=== PATIENT | male | born 1965 | race American Indian/Alaskan Native ===

== ENCOUNTER 2016-10-20 07:44 | Emergency (ER) | payer BC ==
[2016-10-20 07:44] VITALS: BMI 47.3
[2016-10-20 08:01] VITALS: BP 168/94; TEMP 98.4
--- NOTE | 2016-10-20 08:25 | ED PDOC ---
Arrival/HPI - General Chief Complaint: Lower Extremity Problem/Injury Time Seen by Provider: 10/20/16 08:09 Historian: Patient - History of Present Illness Narrative History of Present Illness (Text): 10/20/16 08:05 Cristo Chopra is a 51 year old male who presents to the emergency department complaining of gradually worsening right knee pain for a few days. Patient states that he has never experienced these symptoms before. 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 Patient denies any trauma, injury, numbness, weakness, or any other complaint at this time. PMD: Dr. Fowler Time/Duration: < week Symptom Onset: Gradual Symptom Course: Worsening Severity Level: Mild Activities at Onset: Light Context: Work Past Medical History - Provider Review Nursing Documentation Reviewed: Yes - Infectious Disease Hx of Infectious Diseases: None - Tetanus Immunization Tetanus Immunization: Unknown - Past Medical History Past Medical History: No Previous - Cardiac Hx Cardiac Disorders: Yes Hx Hypertension: Yes - Psychiatric Hx Depression: No Hx Emotional Abuse: No Hx Physical Abuse: No Hx Substance Use: No - Past Surgical History Past Surgical History: No Previous - Surgical History Other/Comment: Left eye - Suicidal Assessment Feels Threatened In Home Enviroment: No Family/Social History - Physician Review Nursing Documentation Reviewed: Yes Family/Social History: No Known Family HX Smoking Status: Never Smoked Hx Alcohol Use: Yes (SOCIALLY) Hx Substance Use: No Hx Substance Use Treatment: No Allergies/Home Meds Allergies/Adverse Reactions: Allergies No Known Allergies Allergy (Verified 10/20/16 08:00) Review of Systems - Physician Review All systems were reviewed & negative as marked: Yes - Review of Systems Constitutional: absent: Fevers, Night Sweats Eyes: absent: Vision Changes ENT: absent: Hearing Changes Respiratory: absent: SOB, Cough Cardiovascular: absent: Chest Pain Gastrointestinal: absent: Abdominal Pain Genitourinary Male: absent: Urinary Output Changes Musculoskeletal: Other (Right knee pain). absent: Back Pain, Neck Pain Skin: absent: Rash Neurological: absent: Headache, Dizziness Endocrine: absent: Polyuria Hemo/Lymphatic: absent: Easy Bleeding Psychiatric: absent: Depression Physical Exam - Physical Exam Narrative Physical Exam (Text): Constitutional: No acute distress. Head: Normocephalic. Atraumatic. Eyes: PERRL. ENT: Moist mucous membranes. Abdomen: Obese. Back: No CVA tenderness. Musculoskeletal: Right knee full ROM. No tenderness. No erythema. No post-knee tenderness. Sensitivity to light touch intact. Motor 5/5 Skin: No rash. Neurologic: Alert, no focal deficit. Vital Signs Reviewed: Yes Vital Signs Temp Pulse Resp BP Pulse Ox 10/20/16 08:00 98.4 F 79 18 168/94 H 100 Temperature: Afebrile Blood Pressure: Hypertensive Pulse: Regular Respiratory Rate: Normal Appearance: Positive for: Well-Appearing, Non-Toxic, Comfortable Pain Distress: None Mental Status: Positive for: Alert and Oriented X 3 Medical Decision Making ED Course and Treatment: 10/20/16 08:05 Impression: 51 year old male complaining of gradually worsening right knee pain for a few days. Plan: -- Right knee x-ray -- Toradol -- Reassess and disposition Prior Visits: Notes and results from previous visits were reviewed. Patient last seen in ED on 11/05/12 for abdominal pain. Patient was discharged home. Progress Notes: XR shows no fracture or dislocation as read by me. SUNSHINE wrap applied. Discharged home, f/u Ortho, return to ER for worsening pain, fever, inability to range, rash, or any other problem. Counseled on HTN management and primary care. - RAD Interpretation Radiology Orders: 10/20/16 08:09 KNEE RIGHT 2 VIEWS (AP & LAT) [RAD] Stat - Medication Orders Current Medication Orders: Discontinued Medications Ketorolac Tromethamine (Toradol) 60 mg IM STAT STA Stop: 10/20/16 08:10 Last Admin: 10/20/16 08:39 Dose: 60 mg Ketorolac Tromethamine (Toradol) Confirm Administered Dose 60 mg .ROUTE .STK- MED ONE Stop: 10/20/16 08:34 Last Admin: 10/20/16 08:39 Dose: 60 mg Comments: duplicate - Scribe Statement The provider has reviewed the documentation as recorded by the Alix Medina Provider Scribe Attestation: All medical record entries made by the Scribe were at my direction and personally dictated by me. I have reviewed the chart and agree that the record accurately reflects my personal performance of the history, physical exam, medical decision making, and the department course for this patient. I have also personally directed, reviewed, and agree with the discharge instructions and disposition. Disposition/Present on Arrival - Present on Arrival Any Indicators Present on Arrival: No History of DVT/PE: No History of Uncontrolled Diabetes: No Urinary Catheter: No History of Decub. Ulcer: No History Surgical Site Infection Following: None - Disposition Have Diagnosis and Disposition been Completed?: Yes Diagnosis: Knee pain Disposition: HOME/ ROUTINE Disposition Time: 09:28 Patient Plan: Discharge Condition: STABLE Discharge Instructions (ExitCare): Knee Pain (ED) Prescriptions: Famotidine [Pepcid] 1 tab PO BID #14 tab Ibuprofen [Motrin] 600 mg PO Q6 #25 tab Referrals: Justina Jarrett MD [Staff Provider] - Follow up with primary
--- NOTE | 2016-10-20 09:52 | RAD ---
PROCEDURE: Right Knee Radiographs. HISTORY: knee pain COMPARISON: None. FINDINGS: BONES: Normal. No fracture. JOINTS: Normal. No osteoarthritis. JOINT EFFUSION: None. OTHER FINDINGS: None. IMPRESSION: Normal radiographs of the right knee.
[2016-10-20 10:43] VITALS: PULSE 65; RESP 16; O2SAT 97
== END 2016-10-20 09:30 | disposition home or self-care (01) ==
LOC: ED 07:44
DX: M25.561 Pain in right knee (principal)
CPT/HCPCS: 73560; 96372; 99283; J1885

== ENCOUNTER 2017-02-23 09:31 | Emergency (ER) | payer BC ==
[2017-02-23 09:32] VITALS: BMI 47.3
--- NOTE | 2017-02-23 10:04 | ED PDOC ---
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 He did not hear a pop or felt any pain at time of activity. The pain is aching in nature and radiates to his LLQ. He tried Tylenol without any relief. He denies numbness/tingling, bowel or bladder retention/incontinence, CP, SOB, weakness or problems with ambulation. ( Saundra Garvey) Past Medical History - Provider Review Nursing Documentation Reviewed: Yes - Travel History Have you recently traveled outside [place] w/in the past 3 mons?: No - Infectious Disease Hx of Infectious Diseases: None - Tetanus Immunization Tetanus Immunization: Unknown - Past Medical History Past Medical History: No Previous - Cardiac Hx Cardiac Disorders: Yes Hx Hypertension: Yes - Psychiatric Hx Depression: No Hx Emotional Abuse: No Hx Physical Abuse: No Hx Substance Use: No - Past Surgical History Past Surgical History: No Previous - Surgical History Other/Comment: Left eye - Suicidal Assessment Feels Threatened In Home Enviroment: No Family/Social History - Physician Review Nursing Documentation Reviewed: Yes Family/Social History: Hypertension Smoking Status: Never Smoked Hx Alcohol Use: Yes (SOCIALLY) Hx Substance Use: No Hx Substance Use Treatment: No Allergies/Home Meds Allergies/Adverse Reactions: Allergies No Known Allergies Allergy (Verified 02/23/17 10:05) Review of Systems - Physician Review All systems were reviewed & negative as marked: Yes - Review of Systems Constitutional: Normal. absent: Fatigue Respiratory: Normal. absent: SOB Cardiovascular: Normal. absent: Chest Pain Gastrointestinal: Normal. absent: Abdominal Pain, Diarrhea, Nausea, Vomiting Genitourinary Male: Normal. absent: Dysuria, Frequency, Hematuria Musculoskeletal: Back Pain. absent: Neck Pain, Joint Swelling Skin: Normal. absent: Rash, Skin Lesions Neurological: Normal. absent: Headache, Dizziness Physical Exam Vital Signs Reviewed: Yes Temperature: Afebrile Blood Pressure: Hypertensive Pulse: Regular Respiratory Rate: Normal Appearance: Positive for: Well-Appearing, Non-Toxic, Comfortable Pain Distress: None Mental Status: Positive for: Alert and Oriented X 3 - Systems Exam Head: Present: Atraumatic, Normocephalic Mouth: Present: Moist Mucous Membranes Neck: Present: Normal Range of Motion Respiratory/Chest: Present: Clear to Auscultation, Good Air Exchange. No: Respiratory Distress, Accessory Muscle Use Cardiovascular: Present: Regular Rate and Rhythm, Normal S1, S2. No: Murmurs Abdomen: Present: Normal Bowel Sounds. No: Tenderness, Distention, Peritoneal Signs Back: Present: Paraspinal Tenderness (on L L4-S1), Pain with Leg Raise (on L ). No: CVA Tenderness, Midline Tenderness Upper Extremity: Present: Normal Inspection. No: Cyanosis, Edema Lower Extremity: Present: Normal Inspection. No: Edema Neurological: Present: GCS=15, CN II-XII Intact, Speech Normal Skin: Present: Warm, Dry, Normal Color. No: Rashes Psychiatric: Present: Alert, Oriented x 3, Normal Insight, Normal Concentration Vital Signs Temp Pulse Resp BP Pulse Ox 02/23/17 11:42 98.2 F 58 L 18 158/79 H 99 02/23/17 11:38 58 L 18 158/79 H 99 02/23/17 10:46 56 L 16 164/86 H 99 02/23/17 10:06 98.3 F 70 16 154/90 H 99 Medical Decision Making ED Course and Treatment: 02/23/17 10:19 Impression: This is a 51Y M with PMH HTN here for back pain x 1 day secondary to heavy lifting. Differential Diagnosis included but are not limited to: muscle strain v. fracture Plan: -- Hip XR, LS spine XR -- Toradol -- Reassess and disposition Progress Notes: 02/23/17 11:29 Xrays show no evidence of fracture. On reevaluation the patient feels better and is in no acute distress. I have discussed the results and plan with the patient, who expresses understanding. Patient given the opportunity to ask question, all questions were answered and there is agreement with the plan to discharge the patient home with prescription for Mortin. Patient is stable for discharge. Patient was instructed to follow up with physician/clinic in 1-2 days or return if symptoms persist/worsen or new concerning symptoms arise., ( Saundra Garvey) 02/23/17 14:48 51 yr old male with back pain. I agree with resident history and physical, assessment and plan. (Hamlet Vázquez) - RAD Interpretation Radiology Orders: 02/23/17 10:17 HIP MIN 2V W/ PELVIS LT [RAD] Stat 02/23/17 11:13 LS SPINE AP/LAT [RAD] Stat - Medication Orders Current Medication Orders: Discontinued Medications Ketorolac Tromethamine (Toradol) 60 mg IM STAT STA Stop: 02/23/17 10:18 Last Admin: 02/23/17 10:36 Dose: 60 mg MAR Pain Assessment Document 02/23/17 10:36 IT (Rec: 02/23/17 10:39 IT [id number]) Pain Reassessment Is this a pain reassessment? No Sleep Is patient sleeping during reassessment? No Presence of Pain Presence of Pain Yes Pain Scale Used Pain Scale Used Numeric Location Left, Right or Bilateral Left Upper or Lower Upper Pain Location Body Site Abdomen Description Description Radiating Intensity of Pain at present 5 IM Administration Charges Document 02/23/17 10:36 IT (Rec: 02/23/17 10:39 IT [id number]) Injection Site MAR Injection Site Left Deltoid Charges for Administration # of IM Administrations 1 Disposition/Present on Arrival - Present on Arrival Any Indicators Present on Arrival: No History of DVT/PE: No History of Uncontrolled Diabetes: No Urinary Catheter: No History Surgical Site Infection Following: None - Disposition Have Diagnosis and Disposition been Completed?: Yes Disposition Time: 11:30 Patient Plan: Discharge - Disposition Diagnosis: Back pain Disposition: HOME/ ROUTINE Condition: FAIR Discharge Instructions (ExitCare): Back Pain (ED) Print Language: CITIZEN OF [place] Additional Instructions: Mr. ZavalaChopra, thank you for letting us take care of you today. Your provider was Dr. Garvey. You were treated for back pain. The emergency medical care you received today was directed at your acute symptoms. If you were prescribed any medication, please fill it and take as directed. It may take several days for your symptoms to resolve. Return to the Emergency Department if your symptoms worsen, do not improve, or if you have any other problems. Please contact your doctor or call one of the physicians/clinics you have been referred to that are listed on the Patient Visit Information form that is included in your discharge packet. Bring any paperwork you were given at discharge with you along with any medications you are taking to your follow up visit. Our treatment cannot replace ongoing medical care by a primary care provider (PCP) outside of the emergency department. Thank you for allowing the [facility] team to be part of your care today. If you had an X-Ray: A Radiologist will review the ED reading if any change in treatment is needed we will contact you. Prescriptions: Ibuprofen [Motrin] 600 mg PO Q6H PRN #20 tab PRN Reason: Pain, Moderate (4-7) Forms: [employer] (Serbian)
[2017-02-23 10:09] VITALS: O2SAT 99
[2017-02-23 11:38] VITALS: BP 158/79; PULSE 58; RESP 18
[2017-02-23 11:44] VITALS: TEMP 98.2
--- NOTE | 2017-02-23 12:45 | RAD ---
PROCEDURE: Left Hip X-ray Radiographs. HISTORY: Back pain COMPARISON: None. FINDINGS: BONES: The pelvic ring is intact. There is no acute fracture or bone destruction. Bone alignment and mineralization are normal. JOINTS: Normal. SOFT TISSUES: Normal. OTHER FINDINGS: None. IMPRESSION: No acute fracture or dislocation.
--- NOTE | 2017-02-23 12:49 | RAD ---
PROCEDURE: Radiographs of the Lumbar Spine. HISTORY: Back pain COMPARISON: No prior. FINDINGS: BONES: There is normal alignment of the lumbar vertebral bodies. Lumbar lordosis is maintained. Vertebral bodies are normal in height. Bone mineralization is normal. There is no acute fracture, spondylolysis or spondylolisthesis. DISC SPACES: There is mild degenerative disc disease at L5-S1. The remaining disc heights are maintained. OTHER FINDINGS: There are no pathologic soft tissue calcifications. Both sacroiliac joints are normal. IMPRESSION: No acute fracture, spondylolysis or spondylolisthesis. Mild degenerative disc disease at L5-S1.
== END 2017-02-23 11:43 | disposition home or self-care (01) ==
LOC: ED 09:31
DX: M54.9 Dorsalgia, unspecified (principal); I10 Essential (primary) hypertension
CPT/HCPCS: 72100; 73502; 96372; 99283; J1885

== ENCOUNTER 2017-04-23 07:20 | Inpatient (IN) | payer BC ==
[2017-04-23 07:27] VITALS: BMI 43.4
--- NOTE | 2017-04-23 07:55 | ED PDOC ---
Arrival/HPI - General Time Seen by Provider: 04/23/17 07:38 Historian: Patient - History of Present Illness Narrative History of Present Illness (Text): 04/23/17 07:40 Cristo Chopra is a 51 year old male, whose past medical history includes hypertension and renal stones, who presents to the emergency department complaining of left sided chest pain since one day ago. Patient reports the chest tightness began yesterday afternoon after lunch and has been intermittent. He also states being more diaphoretic. Patient denies shortness of breath, headache, vision changes, nausea, vomiting, diarrhea, neck pain, or other complaints. Compressor Battery Pellets: Dr. Mcintosh Musician Instrumental: Dr. Armando Time/Duration: 24 hours Symptom Onset: Sudden Symptom Course: Intermittent Quality: Tightness Past Medical History - Provider Review Nursing Documentation Reviewed: Yes - Infectious Disease Hx of Infectious Diseases: None - Tetanus Immunization Tetanus Immunization: Unknown - Past Medical History Past Medical History: No Previous - Cardiac Hx Cardiac Disorders: Yes Hx Hypertension: Yes - Pulmonary Hx Respiratory Disorders: No - Neurological Hx Neurological Disorder: No - HEENT Hx HEENT Disorder: No - Renal Hx Kidney Stones: Yes - Endocrine/Metabolic Hx Endocrine Disorders: No - Hematological/Oncological Hx Blood Disorders: No - Integumentary Hx Dermatological Disorder: No - Musculoskeletal/Rheumatological Hx Musculoskeletal Disorders: No - Gastrointestinal Hx Gastrointestinal Disorders: No - Genitourinary/Gynecological Hx Genitourinary Disorders: No - Psychiatric Hx Psychophysiologic Disorder: No Hx Substance Use: No - Past Surgical History Past Surgical History: No Previous - Surgical History Other/Comment: Left eye - Suicidal Assessment Feels Threatened In Home Enviroment: No Family/Social History - Physician Review Nursing Documentation Reviewed: Yes Family/Social History: Unknown Family HX Smoking Status: Never Smoked Hx Alcohol Use: Yes (SOCIALLY) Hx Substance Use: No Hx Substance Use Treatment: No Allergies/Home Meds Allergies/Adverse Reactions: Allergies No Known Allergies Allergy (Verified 02/23/17 10:05) Home Medications: Home Meds Medication Instructions Recorded Confirmed No Known Home Med 04/23/17 04/23/17 Review of Systems - Review of Systems Constitutional: absent: Fevers Eyes: absent: Vision Changes Respiratory: absent: SOB, Cough Cardiovascular: Chest Pain (tightness) Gastrointestinal: absent: Abdominal Pain, Diarrhea, Nausea, Vomiting Genitourinary Male: absent: Dysuria Musculoskeletal: absent: Back Pain Neurological: absent: Headache, Dizziness, Focal Weakness Endocrine: Diaphoresis Physical Exam - Physical Exam Narrative Physical Exam (Text): 04/23/17 Constitutional: No acute distress. Obese. Head: Normocephalic. Atraumatic. Eyes: PERRL. ENT: Moist mucous membranes. Neck: Supple. Cardiovascular: Borderline bradycardic. Chest: No tenderness. Respiratory: Clear to auscultation bilaterally. GI: Soft. Nontender. Nondistended. Back: No CVA tenderness. Musculoskeletal: (+) pitting edema bilaterally Skin: No rash. Neurologic: Alert, no focal deficit. Vital Signs Reviewed: Yes Vital Signs Temp Pulse Resp BP Pulse Ox 04/23/17 09:42 58 L 15 179/92 H 100 04/23/17 08:59 55 L 19 199/121 H 99 04/23/17 07:55 98 F 04/23/17 07:26 98 F 69 19 208/125 H Temperature: Afebrile Blood Pressure: Hypertensive Pulse: Regular Respiratory Rate: Normal Appearance: Positive for: Well-Appearing, Non-Toxic, Comfortable Pain Distress: None Mental Status: Positive for: Alert and Oriented X 3 Medical Decision Making ED Course and Treatment: 04/23/17 Impression: 51 year old obese male with pitting edema bilaterally and borderline bradycardic. Differential Diagnosis included but are not limited to: Plan: -- EKG -- Chest X-ray -- Labs -- Aspirin -- Reassess and disposition Progress Notes: EKG: Ordered, reviewed, and independently interpreted the EKG. Rate : 50 BPM Rhythm : braycardic Interpretation : No ST-segment elevations. ST depression/T wave inversion laterally. 04/23/17 08:50 Chest X-ray: Creator : Lenny Toth MD FINDINGS: LUNGS: No active pulmonary disease. PLEURA: No significant pleural effusion identified, no pneumothorax apparent. CARDIOVASCULAR: Normal. OSSEOUS STRUCTURES: No significant abnormalities. VISUALIZED UPPER ABDOMEN: Normal. OTHER FINDINGS: None. IMPRESSION: No acute cardiopulmonary disease appreciated. Dr Jordan accepts patient to medical service. Dr. Armando will consult, will attempt to cath patient. - Lab Interpretations Lab Results: 04/23/17 07:30 04/23/17 08:40 Lab Results 04/23/17 08:40: PT 11.9, INR 1.08, APTT 35.3 04/23/17 08:40: Sodium 143, Potassium 4.4, Chloride 108 H, Carbon Dioxide 26, Anion Gap 12, BUN 19, Creatinine 2.2 H, Est GFR ( Amer) 38, Est GFR (Non- Af Amer) 31, Random Glucose 100, Calcium 9.1, Total Bilirubin 0.7, AST 21, ALT 31, Alkaline Phosphatase 66, Total Creatine Kinase 77, Troponin I 0.07, Total Protein 8.1, Albumin 3.9, Globulin 4.1, Albumin/Globulin Ratio 1.0 L 04/23/17 07:30: WBC 6.8, RBC 4.37, Hgb 12.8 L, Hct 39.2 L, MCV 89.7, MCH 29.3, MCHC 32.7, RDW 13.1, Plt Count 210, MPV 10.0, Gran % 58.5, Lymph % (Auto) 29.4, [place] % (Auto) 8.6 H, Eos % (Auto) 3.4, Baso % (Auto) 0.1, Gran # 3.96, Lymph # 2.0, [place] # 0.6, Eos # 0.2, Baso # 0.01 I have reviewed the lab results: Yes - RAD Interpretation Radiology Orders: 04/23/17 07:38 CHEST PORTABLE [RAD] Stat Pickling Grader: Radiologist - EKG Interpretation Interpreted by ED Physician: Yes Type: 12 lead EKG - Medication Orders Current Medication Orders: Discontinued Medications Aspirin (Aspirin) 325 mg PO STAT STA Stop: 04/23/17 07:39 Last Admin: 04/23/17 07:46 Dose: 325 mg Nitroglycerin (Nitro-Bid 2% Oint) 1 ea TOP STAT STA Stop: 04/23/17 08:17 Last Admin: 04/23/17 08:33 Dose: 1 ea - Scribe Statement The provider has reviewed the documentation as recorded by the Alix Ferris Provider Scribe Attestation: All medical record entries made by the Scribe were at my direction and personally dictated by me. I have reviewed the chart and agree that the record accurately reflects my personal performance of the history, physical exam, medical decision making, and the department course for this patient. I have also personally directed, reviewed, and agree with the discharge instructions and disposition. Disposition/Present on Arrival - Present on Arrival Any Indicators Present on Arrival: No History of DVT/PE: No History of Uncontrolled Diabetes: No Urinary Catheter: No History Surgical Site Infection Following: None - Disposition Have Diagnosis and Disposition been Completed?: Yes Diagnosis: Chest pain, Abnormal EKG Disposition: HOSPITALIZED Disposition Time: 10:00 Patient Plan: Admission, Telemetry Condition: GUARDED Discharge Instructions (ExitCare): Chest Pain (ED)
[2017-04-23 08:10] LABS: BASO # 0.01 K/mm3 (0.0-2.0); BASO % 0.1 % (0.0-3.0); EOS # 0.2 (0.0-0.7); EOS % 3.4 % (1.5-5.0); GRAN # 3.96 (1.4-6.5); GRAN % 58.5 % (50.0-68.0); HEMATOCRIT 39.2 % (42.0-52.0); LYMPH % 29.4 % (22.0-35.0); MEAN CELL VOLUME 89.7 fl (80.0-105.0); MEAN CORPUSCULAR HEMOGLOBIN 29.3 pg (25.0-35.0); MEAN CORPUSCULAR HGB CONC 32.7 g/dl (31.0-37.0); MONO # 0.6 (0.1-0.6); MONO % 8.6 % (1.0-6.0); RED CELL DISTRIBUTION WIDTH 13.1 % (11.5-14.5); WHITE BLOOD COUNT 6.8 10^3/ul (4.5-11.0)
[2017-04-23] MEDS ORDERED: Nitroglycerin 2% Ointment Foilpak UD TOP STA (08:16)
--- NOTE | 2017-04-23 08:48 | RAD ---
HISTORY: cp COMPARISON: No prior. FINDINGS: LUNGS: No active pulmonary disease. PLEURA: No significant pleural effusion identified, no pneumothorax apparent. CARDIOVASCULAR: Normal. OSSEOUS STRUCTURES: No significant abnormalities. VISUALIZED UPPER ABDOMEN: Normal. OTHER FINDINGS: None. IMPRESSION: No acute cardiopulmonary disease appreciated.
[2017-04-23 09:07] LABS: BILIRUBIN,TOTAL 0.7 mg/dL (0.2-1.3); CALCIUM 9.1 mg/dL (8.4-10.5); POTASSIUM 4.4 mmol/L (3.6-5.0); TOTAL PROTEIN 8.1 g/dL (5.8-8.3)
[2017-04-23 09:11] LABS: INR 1.08 (0.93-1.08); PARTIAL THROMBOPLASTIN TIME 35.3 Seconds (25.1-36.5)
[2017-04-23 09:19] LABS: TROPONIN I 0.07 ng/mL
[2017-04-23] MEDS ORDERED: Influenza Vaccine 60 mcg/0.5 mL SYR (4YR UP) IM ONE (15:24)
[2017-04-23] MEDS ORDERED: Pneumococcal 23-Valent Vaccine IM ONE (15:24)
[2017-04-23 15:54] LABS: TROPONIN I 0.07 ng/mL
[2017-04-23 20:47] LABS: IRON 36 ug/dL (45-180)
[2017-04-23 20:50] LABS: TROPONIN I 0.07 ng/mL
[2017-04-24 06:38] LABS: HEMATOCRIT 40.9 % (42.0-52.0); MEAN CELL VOLUME 91.1 fl (80.0-105.0); MEAN CORPUSCULAR HEMOGLOBIN 29.8 pg (25.0-35.0); MEAN CORPUSCULAR HGB CONC 32.8 g/dl (31.0-37.0); MEAN PLATELET VOLUME 9.8 fl (7.0-11.0); RED CELL DISTRIBUTION WIDTH 13.1 % (11.5-14.5)
[2017-04-24 07:46] LABS: CALCIUM 9.5 mg/dL (8.4-10.5); POTASSIUM 4.3 mmol/L (3.6-5.0)
[2017-04-24 07:58] LABS: TROPONIN I 0.07 ng/mL
--- NOTE | 2017-04-24 08:50 | HP ---
CHIEF COMPLAINT: Chest pain. HISTORY OF PRESENT ILLNESS: Mr. Cristo Chopra is a 51-year-old male with past medical history of hypertension, renal stones, taken care by Dr. Mcintosh, came to the Emergency Room Department complaining of left-sided chest pain since one day. The patient reports the chest tightness began yesterday afternoon after lunch and has been intermittent. He also states that being more diaphoretic. The patient denies nausea, vomiting, diarrhea, headache or neck pain. According to patient, he saw Dr. Armando as outpatient and did stress test. Stress test was abnormal and patient disposed to go for catheterization, but started chest pain before that, so came in [facility]. PAST MEDICAL HISTORY: History of kidney stones, hypertension and abnormal stress test. ALLERGIES: THE PATIENT IS NOT ALLERGIC WITH ANY MEDICATIONS. HOME MEDICATIONS: The patient does not remember. FAMILY HISTORY: Father and mother, noncontributory. HABITS: Never smoke, alcohol socially. Substance abuse no. REVIEW OF SYSTEMS: The patient was seen and examined on the bedside in the ER. was sitting on the bedside also. No fever. No vision changes. No coughing and shortness of breath, only having chest tightness and pain. No abdominal pain, diarrhea, nausea, vomiting. No dysuria. No back pain. No headache. No dizziness, focal weakness, diaphoresis or fever. PHYSICAL EXAMINATION VITAL SIGNS: Temperature 98, pulse 69, respiratory 19, blood pressure on admission was 208/125, repeat was 179/92 and Pulseoximetry 100%. HEENT: Head: Normocephalic and atraumatic. Eyes: PERRLA. Extraocular muscles are intact. Conjunctivae are clear. Nose is patent. Mucous membranes are moist. NECK: Supple. No carotid bruits. No JVD or thyromegaly. CHEST: Bilaterally symmetrical. HEART: S1 and S2 positive. LUNGS: Clear to auscultation. ABDOMEN: Soft. Bowel sounds are present. No organomegaly. EXTREMITIES: No edema. No cyanosis. NEUROLOGIC: The patient is awake and alert. Moving all 4 extremities. No focal deficit. LABORATORY DATA: White blood cells is 6.8, hemoglobin 12.8, hematocrit 39.2, platelets 210. Sodium 143, potassium 4.4, BUN 19, creatinine 2.2, glucose 100. ASSESSMENT AND PLAN: Mr. Cristo Chopra is a 51-year-old male with anemia, renal insufficiency, hyperchloremia, history of nephrolithiasis, came with chest pain, abnormal EKG, history of abnormal stress test as per patient and Dr. Armando's office, did chest x-ray, accelerated hypertension with bradycardia. Chest x-ray showed no acute cardiopulmonary disease appreciated. Readmitted the patient. We would consult with Dr. Armando, awaiting for his input, started aspirin 81 mg, Pepcid, 20 mg for gastrointestinal prophylaxis, Zestril 20 mg given for blood pressure, heart healthy diet given. Cardiac enzymes orders x3. Two sets are 0.07, waiting for results of 3rd set . Repeat labs. We will follow up. Sofi Jordan MD Job # [id number] MTDChristina
--- NOTE | 2017-04-24 09:42 | CARD ---
APPROVED REPORT EKG Measurement Heart [id number] <Conclusion> Marked sinus bradycardia Anteroseptal infarct, age undetermined ST & T wave abnormality, consider lateral ischemia No change except the ratet is slower
[2017-04-24] MEDS ORDERED: Enoxaparin 40 mg Syringe SC SCH (10:00)
[2017-04-24 17:09] LABS: FOLATE 6.1 ng/mL
--- NOTE | 2017-04-24 18:07 | CON ---
DATE: 04/24/2017 HISTORY OF PRESENT ILLNESS: This is a 51-year-old obese hypertensive male admitted with chest pain. He has a staghorn calculus, he underwent urologic evaluation, lithotripsy was planned, preoperatively an EKG was abnormal and he was sent for cardiac evaluation. Nuclear stress test was abnormal. He also has a creatinine in the 2 to 2.5 range. Renal evaluation was being planned prior to proposed cardiac catheterization to define is coronary anatomy. He has not had chest pain, but yesterday developed a left-sided chest discomfort, which lasted about 30 minutes. He came to the emergency room and was admitted to telemetry. There was no shortness of breath,orthopnea, PMD, syncope, presyncope, lightheadedness, dizziness, vertigo, palpitations, edema, and claudication. PAST MEDICAL HISTORY: Notable for hypertension, obesity, renal stone, but no rheumatic fever, myocardial infarction, congestive heart failure, arrhythmia, diabetes, stroke, TIA, and gout. MEDICATIONS: At the time of admission included lisinopril. ALLERGIES: THERE ARE NO MEDICATION ALLERGIES. SOCIAL HISTORY: He is a nonsmoker. He does not drink alcohol significantly. He is ambulatory. 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 He is fairly active in his work. FAMILY HISTORY: Noncontributory. REVIEW OF SYSTEMS: A 10-point review of systems otherwise unremarkable except as noted above. PHYSICAL EXAMINATION GENERAL: He is a well-developed obese male in no acute distress, lying in bed on telemetry. VITAL SIGNS: He is in sinus rhythm at 66 beats per minute. He is afebrile, blood pressure 134/70, respirations 14, O2 saturation 95%. HEENT: Reveals no neck pain, distention, thyromegaly or carotid bruits. Mucous membrane is moist. Conjunctiva pink. NECK: Supple. LUNG: Lung medeiros clear throughout. HEART: Examination of the hear revealed normal first and second heart sound. No murmur, gallop, rub, or click. ABDOMEN: Obese and soft. Bowel sounds present. No mass, organomegaly, tenderness, rebound, or guarding. No CVA tenderness. No palpable, abdominal aortic aneurysm. EXTREMITIES: Revealed no cyanosis, clubbing or edema. NEUROLOGIC: He was awake, alert, and oriented. SKIN: Warm and dry. No rash or cellulitis. PSYCHIATRIC: Normal to mood and affect. LABORATORY AND IMAGING: A portable chest x-ray revealed no acute cardiopulmonary disease. EKG demonstrate sinus bradycardia 49 beats per minute. He has poor R-wave progression possible anterior septal myocardial infarction no change with ST-T wave changes consistent with ischemia. White count normal. Platelet count normal. Hemoglobin 13.4, hematocrit 40.9. PT, INR, and PTT unremarkable. Electrolytes notable for chloride of 108, repeat 109, BUN normal, creatinine 2.2, repeat 2.3. Blood sugar 100/96. LFT is unremarkable. Four troponin are negative. Three CK are negative. BNP 1090. Total cholesterol is 237, LDL 138, triglycerides 202, HDL 32, and TSH is normal. ASSESSMENT: Cristo Chopra is a 51-year-old obese, hypertensive male, with an abnormal nuclear stress test, abnormal EKG, chronic kidney disease and renal stones with creatinine of 2.2 range, admitted with chest pain, but no evidence of myocardial infarction. PLAN: At this time, we are planning cardiac catheterization. He is at increased renal risk. I have discussed this with the patient and with his while they were in the office. We will get a renal evaluation. We are tentatively planning cardiac catheterization for tomorrow. He will get IV fluids and Mucomyst precatheterization and post catheterization. Every effort will be made to minimize dye exposure so as to minimize the risk of worsening his renal function. He has a known staghorn calculus with an elective lithotripsy planned in the future. He is getting lisinopril. I have added Norvasc. He is on aspirin. He will get a low dose of Lovenox today as DVT prophylaxis. He is getting Pepcid. He can be out of bed. We will monitor input and output, daily labs, and post catheterization. We will make additional recommendations based on the cath results. I will start him on Lipitor 20 mg daily as well. Wenceslao Armando MD MTDChristina
--- NOTE | 2017-04-24 18:42 | US ---
PROCEDURE: Ultrasound of the Kidneys HISTORY: CKD, Neprolithiasis, R/O hydro, Check kidney size COMPARISON: None available. TECHNIQUE: Sonogram of the kidneys. FINDINGS: RIGHT KIDNEY: Measures: 10.1 x 4.3 x 5.5 cm. There is [id number]-[id number] diffuse increased echogenicity of the right kidney. No evidence of hydronephrosis No stone, solid mass lesion or hydronephrosis visualized. LEFT KIDNEY: Measures: 11.4 x 5.4 x 5.2 cm. The left kidney is also mildly to moderately echogenic. There is no evidence of hydronephrosis. This suspicious for nonobstructing stone at the lower pole of the left kidney measures 1.1 centimeter. Other Findings None. IMPRESSION: Echogenic kidneys suggestive of medical renal disease. No evidence of hydronephrosis. Suspicious for nonobstructing stone at the lower pole of the left kidney.
[2017-04-24] MEDS ORDERED: Acetylcysteine 20% Inhal Soln (4ml) PO ONE (19:00)
[2017-04-24 20:10] LABS: URINE BILIRUBIN NEGATIVE (NEGATIVE); URINE BLOOD LARGE (NEGATIVE); URINE GLUCOSE (UA) NEGATIVE (NEGATIVE); URINE KETONE NEGATIVE (NEGATIVE); URINE LEUKOCYTE ESTERASE NEGATIVE Leu/uL (NEGATIVE); URINE PROTEIN 100 mg/dL (<30 mg/dL); URINE UROBILINOGEN 0.2 E.U./dL (<1 E.U./dL)
[2017-04-24 20:13] LABS: URINE APPEARANCE SL CLOUDY (CLEAR); URINE COLOR YELLOW (YELLOW)
[2017-04-24 20:19] LABS: URINE EPITHELIAL CELLS 0 - 2 /hpf (0-5); URINE RBC 25 - 30 /hpf (0-2); URINE WBC 0 - 2 /hpf (0-6)
--- NOTE | 2017-04-25 00:55 | CP.PCM.PN ---
<Arlene Burk - Last Filed: 04/25/17 00:52> Subjective - Date & Time of Evaluation Date of Evaluation: 04/24/17 Time of Evaluation: 10:00 - Subjective Subjective: 51 yr male w/ history of obesity, HTN, and staghorm calculus with planned lithotripsy but ECG abnormal & abn stress test. He developed chest pain, left sided and was admitted to [facility] [place] [facility]. He is seated comfortably at bedside. He denies any fever, chest pain, SOB, headache, constipation, diarrhea, urinary changes or distress. Objective - Vital Signs/Intake and Output Vital Signs (last 24 hours): Temp Pulse Resp BP Pulse Ox 98.2 F 67 20 164/86 H 96 04/25/17 00:01 04/25/17 00:01 04/25/17 00:01 04/25/17 00:01 04/25/17 00:01 - Medications Medications: Current Medications Acetylcysteine (Acetylcysteine 20%) 3 ml PO ONCE ONE Stop: 04/25/17 06:01 Amlodipine Besylate (Norvasc) 5 mg PO DAILY [facility] Last Admin: 04/24/17 10:40 Dose: 5 mg Aspirin (Ecotrin) 81 mg PO DAILY [facility] Last Admin: 04/24/17 10:05 Dose: 81 mg Atorvastatin Calcium (Lipitor) 20 mg PO DIN [facility] Last Admin: 04/24/17 16:27 Dose: 20 mg Enoxaparin Sodium (Lovenox) 40 mg SC DAILY [facility] PRN Reason: Protocol Last Admin: 04/24/17 10:01 Dose: 40 mg Famotidine (Pepcid) 20 mg PO DAILY [facility] Last Admin: 04/24/17 10:01 Dose: 20 mg Sodium Chloride (Sodium Chloride 0.9%) 1,000 mls @ 60 mls/hr IV .[id number] [facility] Lisinopril (Zestril) 20 mg PO DAILY [facility] Last Admin: 04/24/17 10:01 Dose: 20 mg - Labs Labs: 04/24/17 05:45 04/24/17 05:45 PT 11.9 SECONDS (9.4-12.5) 04/23/17 08:40 INR 1.08 (0.93-1.08) 04/23/17 08:40 APTT 35.3 Seconds (25.1-36.5) 04/23/17 08:40 - Constitutional Appears: Well - Head Exam Head Exam: ATRAUMATIC, NORMOCEPHALIC - Eye Exam Eye Exam: Normal appearance Pupil Exam: NORMAL ACCOMODATION - ENT Exam ENT Exam: Mucous Membranes Moist, Normal Exam - Neck Exam Neck Exam: Full ROM, Normal Inspection - Respiratory Exam Respiratory Exam: Clear to Ausculation Bilateral, NORMAL BREATHING PATTERN - Cardiovascular Exam Cardiovascular Exam: Bradycardia, +S1, +S2 - GI/Abdominal Exam GI & Abdominal Exam: Soft, Normal Bowel Sounds - Rectal Exam Rectal Exam: Deferred - Exam Exam: NORMAL INSPECTION - Extremities Exam Extremities Exam: Full ROM - Back Exam Back Exam: NORMAL INSPECTION - Neurological Exam Neurological Exam: Alert, Awake, Oriented x3 - Psychiatric Exam Psychiatric exam: Normal Affect, Normal Mood - Skin Skin Exam: Dry, Intact, Warm Assessment and Plan (1) Chest pain Status: Acute (2) Abnormal EKG Status: Acute (3) Staghorn calculus Status: Chronic (4) HTN (hypertension) Status: Chronic (5) Obesity Status: Chronic (6) Hyperlipemia Status: Chronic (7) Anemia Status: Acute - Assessment and Plan (Free Text) Plan: Will monitor anemia. Reorder labs. Hyperlipidemia, started on lipitor. Consults: Cardio - Dr. Armando: Cardiac cath for 04/25. started norvasc & lipitor. Reviewed: Renal US (+) L kidney mildly echogenity. Suspicious L kidney nonobstructing stone. CXR (-) WNL ECG (+) SB, anterospetal infarct, ST, T wave abn, consider lateral ischemia. <Sofi Jordan - Last Filed: 04/29/17 00:36> Objective - Vital Signs/Intake and Output Vital Signs (last 24 hours): Temp Pulse Resp BP Pulse Ox 98.2 F 60 18 171/96 H 100 04/26/17 11:53 04/26/17 11:53 04/26/17 11:53 04/26/17 11:53 04/26/17 06:00 - Labs Labs: 04/26/17 05:30 04/26/17 08:06 PT 11.9 SECONDS (9.4-12.5) 04/23/17 08:40 INR 1.08 (0.93-1.08) 04/23/17 08:40 APTT 35.3 Seconds (25.1-36.5) 04/23/17 08:40 Assessment and Plan - Assessment and Plan (Free Text) Plan: pt is seen and examined at bed side looking comfortable , no change of status , agreed all above , meds, labs and chart noted
--- NOTE | 2017-04-25 03:30 | CON ---
DATE: 04/24/2017 PATIENT ADMITTED FOR: Sofi Jordan MD. REFERRING MD: Sofi Jordan MD. REASON FOR CONSULTATION: Evaluation of a patient unknown to me who presents with an elevated creatinine in the setting of an abnormal stress test requiring cardiac catheterization, history of kidney stones, history of hypertension. HISTORY OF PRESENT ILLNESS: The patient is a pleasant 51-year-old black male with history of hypertension of four years duration. The patient states that he had been followed at the [facility] by Dr. Joe. He was told of having hypertension, was never told of any problem with his kidney. He was told by Dr. Mcintosh, his urologist who had seen him for a left kidney stone, that he does have protein in the urine. He does not have any blood in the urine. He was being evaluated for possible stone removal. He went for a stress test after having an EKG, which was abnormal. The patient had chest pain and presented to the hospital. He is currently scheduled for a cardiac catheterization tomorrow. He appears to have had a creatinine in the 2.2 to 2.4 range dating back to the end of March. He did have a creatinine of 1.5 back in 2012. His BUN is normal at 20. The patient denies using any creatine supplements or muscle enhancing agents, no anabolic steroids. He does not use any anti-inflammatory agents. He had been on blood pressure medications in the past, but no medications recently. We are asked to evaluate patient for his elevated creatinine. The patient will be receiving Mucomyst and IV fluid hydration prior to his catheterization. PAST MEDICAL HISTORY: Significant for hypertension of four years' duration, history of left-sided kidney stone, history of hyperlipidemia, history of an abnormal stress test. The patient did have a renal scan done in 02/2017 which showed right kidney providing 52% of function and left kidney providing 48% of function. This was ordered by Urology. MEDICATIONS: At home are none. Current medications in the hospital include that of acetylcysteine, aspirin, Lipitor, Lovenox is on hold, Norvasc, Pepcid, normal saline 60 mL an hour, and lisinopril. ALLERGIES: THE PATIENT HAS NO KNOWN ALLERGIES TO MEDICATION. SOCIAL HISTORY: No history of cigarette smoking. History of alcohol socially. 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 FAMILY HISTORY: Father and mother are alive and well with no ongoing medical issues. REVIEW OF SYSTEMS: GENERAL: The patient states weight and appetite have been stable. ENT: Denies any hearing or visual problems. PULMONARY: No shortness of breath. No history of COPD, CHF, asthma, bronchitis. CARDIAC: History of chest pain as noted above. History of abnormal stress test. GASTROINTESTINAL: No nausea, vomiting, diarrhea, abdominal pain, constipation. GENITOURINARY: No past history of chronic kidney disease, no history of UTIs, history of a left-sided kidney stone. ENDOCRINE: No history of diabetes. MUSCULOSKELETAL: No complaints. NEUROLOGICAL: No history of CVA, TIA, seizures, or syncope. HEMATOLOGY AND ONCOLOGY: No history of anemia. No history of malignancy. PAST PSYCHIATRIC HISTORY: Negative. PHYSICAL EXAMINATION: GENRAL: The patient is currently seen on telemetry. He appears to be comfortable. He is sitting up in bed eating dinner. VITAL SIGNS: Blood pressures ranging from 160 to 178 systolic, diastolics ranging from 85 to 97. Heart rate is 51. Temperature is 98.6 with a respiratory rate of 16. HEENT: Exam shows him to be normocephalic, atraumatic. Conjunctivae are pink. Sclerae are nonicteric. Pupils equal and reactive to light and accommodation. Extraocular muscles are intact. Posterior pharynx is normal. NECK: Supple. No neck vein distention. No thyromegaly. No lymphadenopathy. No bruits. CHEST: Clear to auscultation and percussion. No rales or rhonchi or wheezing. CARDIOVASCULAR: Shows a regular rate and rhythm with distant heart sounds. No audible murmurs, rubs, or gallops. ABDOMEN: Soft. Moderate obesity. Bowel sounds normal. No rebound or guarding or masses. BACK: No CVAT. No spinal tenderness. EXTREMITIES: Show no cyanosis, no clubbing or edema. Distal lower extremity pulses are 2+ bilaterally. NEUROLOGIC: Shows him to be alert, oriented x3 with no gross focal motor or sensory deficits noted. IMAGING: Admitting chest x-ray showed no acute pulmonary disease. Admitting EKG showed bradycardia with no acute ST or T-wave changes. There was an old anterior septal wall infarct. LABORATORY DATA: CBC: White blood cell count 6.0 with a hemoglobin today of 13.4, platelet count is normal at 205,000. Coags are normal. Chemistry showed normal electrolytes. BUN is 20, creatinine was 2.2 on admission and it is currently 2.3 today. We do not know his baseline creatinine, but dating back to 04/03/2017, creatinine was 2.4. Going back 4 years, his creatinine was 1.5. Glucose was 96. Hemoglobin A1c 5.7%. Calcium 9.5. Iron saturations were 16%. BNP 1090. Troponins are flat at 0.07. Elevated triglycerides at 202, elevated cholesterol at 237 with an LDL of 138. B12 level was normal. TSH level was normal at 1.81. No urine is available for comment. ASSESSMENT: 1. Elevated creatinine in a patient with no past history of chronic kidney disease. The patient states that he follows with Dr. Joe at the [facility]. He was told of hypertension but never told of any kidney disease. Dr. Joe is a hypertension/certified health education specialist MD. I will obtain a urinalysis. I will obtain a 24-hour urine for creatinine clearance and protein. Patient states that he was told by Dr. Mcitnosh that he did have protein in the urine. The patient also has a history of kidney stones. It is unlikely that he has obstructive uropathy from his left kidney stone, but this will be evaluated with ultrasound. For right now, it is safe to continue patient on an angiotensin-converting enzyme inhibitor as long as his creatinine does not increase. He may continue on a calcium channel koby. Perhaps the patient has uncontrolled hypertension and he has hypertensive nephrosclerosis. 2. Left-sided kidney stone. No family history of renal stones. The patient apparently never had a stone workup. I will discuss this with Dr. Mcintosh. 3. Abnormal stress test. Patient is scheduled for a cardiac catheterization tomorrow. Precautions are being taken. He is receiving Mucomyst and IV fluid hydration. I did explain to the patient that of course there is some hazard doing a dye study with his creatinine being in the low 2 range. But he appears to at least have a stable creatinine in the low 2 range. So, hopefully, we will minimize the dye load and protect the kidney with hydration and Mucomyst. In light of his abnormal stress test and chest pain, the benefits likely outweigh the risks. 4. Hyperlipidemia. Agree with start of statin therapy. 5. Obesity. The patient needs diet, exercise, and lose weight. PLAN: 1. We will obtain a urinalysis tonight. 2. I will order a 24-hour urine for creatinine clearance and protein. 3. We will obtain a renal ultrasound to check his kidney size and to rule out any obstructive uropathy given his left kidney stone. 4. Okay to continue calcium channel koby, SUNSHINE inhibitor at this point in time. 5. Will need to confer with his hypertension/certified health education specialist MD at the [facility], Dr. Joe, to see whether or not the patient has ever had an elevated creatinine or has ever had a workup for this in the past. 6. Explained to patient the approach of the renal workup in detail. Thank you for letting me partake and share in the care of your patient. Michael Watkins MD
[2017-04-25] MEDS ORDERED: Sodium Chloride 0.9% 1,000 ML IV SCH (05:00)
[2017-04-25] MEDS ORDERED: Acetylcysteine 20% Inhal Soln (4ml) PO ONE (06:00)
--- NOTE | 2017-04-25 06:03 | CP.PCM.PN ---
Subjective - Date & Time of Evaluation Date of Evaluation: 04/25/17 Time of Evaluation: 05:55 - Subjective Subjective: S:Patient was seen at bedside. Has no complaints. BP 177/90 Medical record was reviewed. O: Last Vital Signs 3 Temp 98.2 F 04/25/17 06:00 Pulse 62 04/25/17 06:32 Resp 20 04/25/17 06:00 BP 177/90 H 04/25/17 06:32 Pulse Ox 97 04/25/17 06:00 Awake, alert, not in distress. LUNGS:Normal breathing pattern. A:Elevated blood pressure reading. HTN. P:Zestril 20 mg PO now instead of at 10AM. Objective - Vital Signs/Intake and Output Vital Signs (last 24 hours): Temp Pulse Resp BP Pulse Ox 98.2 F 60 20 164/86 H 96 04/25/17 00:01 04/25/17 02:00 04/25/17 00:01 04/25/17 00:01 04/25/17 00:01 - Medications Medications: Current Medications Acetylcysteine (Acetylcysteine 20%) 3 ml PO ONCE ONE Stop: 04/25/17 06:01 Amlodipine Besylate (Norvasc) 5 mg PO DAILY [facility] Last Admin: 04/24/17 10:40 Dose: 5 mg Aspirin (Ecotrin) 81 mg PO DAILY [facility] Last Admin: 04/24/17 10:05 Dose: 81 mg Atorvastatin Calcium (Lipitor) 20 mg PO DIN [facility] Last Admin: 04/24/17 16:27 Dose: 20 mg Enoxaparin Sodium (Lovenox) 40 mg SC DAILY [facility] PRN Reason: Protocol Last Admin: 04/24/17 10:01 Dose: 40 mg Famotidine (Pepcid) 20 mg PO DAILY [facility] Last Admin: 04/24/17 10:01 Dose: 20 mg Sodium Chloride (Sodium Chloride 0.9%) 1,000 mls @ 60 mls/hr IV .[id number] [facility] Last Admin: 04/25/17 05:03 Dose: 60 mls/hr Lisinopril (Zestril) 20 mg PO DAILY [facility] Last Admin: 04/24/17 10:01 Dose: 20 mg - Labs Labs: 04/24/17 05:45 04/24/17 05:45 PT 11.9 SECONDS (9.4-12.5) 04/23/17 08:40 INR 1.08 (0.93-1.08) 04/23/17 08:40 APTT 35.3 Seconds (25.1-36.5) 04/23/17 08:40
[2017-04-25 06:22] LABS: HEMATOCRIT 39.8 % (42.0-52.0); MEAN CELL VOLUME 90.5 fl (80.0-105.0); MEAN CORPUSCULAR HEMOGLOBIN 29.5 pg (25.0-35.0); MEAN CORPUSCULAR HGB CONC 32.7 g/dl (31.0-37.0); MEAN PLATELET VOLUME 9.8 fl (7.0-11.0); RED CELL DISTRIBUTION WIDTH 12.9 % (11.5-14.5)
[2017-04-25 06:48] LABS: ALB/GLOB RATIO 0.9 (1.1-1.8); BILIRUBIN,TOTAL 0.8 mg/dL (0.2-1.3); CALCIUM 9.1 mg/dL (8.4-10.5); MAGNESIUM 1.8 mg/dL (1.7-2.2); PHOSPHOROUS 3.5 mg/dL (2.5-4.5); POTASSIUM 4.3 mmol/L (3.6-5.0); TOTAL PROTEIN 7.6 g/dL (5.8-8.3)
[2017-04-25] MEDS ORDERED: Lidocaine 2% Inj (20ml) ONE (09:20)
[2017-04-25] MEDS ORDERED: Iodixanol 320 MG/ML 200 ML BOTTLE IV ONE (09:21)
[2017-04-25] MEDS ORDERED: Midazolam 2 MG/2 ML VIAL ONE ×2 (09:39→09:57)
[2017-04-25] MEDS ORDERED: Sodium Chloride 0.45% 1,000 ML IV SCH (10:30)
--- NOTE | 2017-04-25 12:56 | CARDCATH ---
PROCEDURE DATE: 04/25/2017 PROCEDURES: 1. Selective left and right coronary angiography. 2. Left ventriculography. 3. Right femoral arteriography. 4. Mynx deployment. HISTORY: This is a 51-year-old man with multiple cardiac risk factors and a recent abnormal stress test who was admitted with chest pain. Cardiac catheterization was advised. INDICATION: Chest pain, abnormal stress test. FINDINGS: HEMODYNAMICS: The aortic pressure was 170/80 with left ventricular pressure of 170/20. CORONARY ANATOMY: 1. The left mainstem was normal. 2. The left anterior ascending artery had a diffuse 40% tubular narrowing in its proximal segment. The distal vessel had mild diffuse irregularities. The diagonal branches had mild diffuse disease. 3. The left circumflex artery gave rise to one large obtuse marginal branch, which had a 60% proximal stenosis. Mild irregularities were noted distally. 4. The right coronary artery was dominant. Mild irregularities were noted throughout proximal midportion. The posterior ascending artery had mild disease as well. 5. The posterolateral branch was a oqhbn-by-clkkqooo size vessel with an 80% stenosis in its midportion at the takeoff of a small side branch. LEFT VENTRICULOGRAPHY: A hand injection was performed in the left ventricle revealing evidence of borderline LV hypokinesis with an overall ejection fraction of 50-55%. RIGHT FEMORAL ARTERIOGRAPHY: A right femoral arteriogram was performed in the MARIE projection. This revealed no evidence of significant disease and appropriate level of arterial puncture. The puncture site was then closed with deployment of a Mynx device. CONCLUSION: 1. Ydpo-ot-jxfqwhit diffuse left anterior descending and circumflex disease. 2. Severe distal right coronary artery disease. 3. Borderline left ventricular systolic dysfunction. RECOMMENDATIONS: Given the above findings, medical therapy appears most appropriate for his coronary artery disease. Addition of a beta-koby should be considered unless a contraindication exists. Close monitoring with renal function following the procedure is planned. A total of 100 mL of IV contrast was administered, and he was hydrated before and after the procedure. Tre Ortiz MD TRINI
--- NOTE | 2017-04-25 13:02 | PN ---
DATE: 04/25/2017 SUBJECTIVE: The patient is seen lying in bed on telemetry. He is comfortable at present time. He is scheduled for cardiac catheterization later this morning. OBJECTIVE: VITAL SIGNS: His blood pressure is 176/90, pulse of 60 in sinus, respirations are 16. He is afebrile. HEENT: No JVD. CHEST: Few scattered rhonchi. HEART: PMI displaced laterally. No pathological gallops noted. ABDOMEN: Soft, obese, nontender with bowel sounds. EXTREMITIES: No edema. DIAGNOSTIC DATA: Hemoglobin and hematocrit 13 and 39.8, white count 6.0, platelet count is 199,000, potassium 4.3, BUN and creatinine are 19 and 2.3. IMPRESSION: 1. Recent chest pain and abnormal stress test, possible coronary artery disease. Plan is for cardiac catheterization later today. 2. Chronic renal insufficiency, currently receiving intravenous hydration. 3. Nephrolithiasis. Awaits treatment. RECOMMENDATIONS: His current medications will be continued. IV hydration prior to catheterization is planned. Further recommendations will be based upon the results of catheterization. We will follow along as needed. Tre Ortiz MD
[2017-04-26 06:13] LABS: HEMATOCRIT 40.2 % (42.0-52.0); MEAN CELL VOLUME 89.9 fl (80.0-105.0); MEAN CORPUSCULAR HEMOGLOBIN 29.5 pg (25.0-35.0); MEAN CORPUSCULAR HGB CONC 32.8 g/dl (31.0-37.0); MEAN PLATELET VOLUME 9.7 fl (7.0-11.0); RED CELL DISTRIBUTION WIDTH 12.9 % (11.5-14.5)
[2017-04-26 06:23] VITALS: O2SAT 100
[2017-04-26 06:31] LABS: ALB/GLOB RATIO 0.9 (1.1-1.8); BILIRUBIN,TOTAL 0.8 mg/dL (0.2-1.3); CALCIUM 9.3 mg/dL (8.4-10.5); POTASSIUM 4.1 mmol/L (3.6-5.0); TOTAL PROTEIN 8.1 g/dL (5.8-8.3)
[2017-04-26] MEDS ORDERED: Metoprolol Succinate 25 mg XL Tab PO SCH (08:00)
--- NOTE | 2017-04-26 08:12 | CP.PCM.PN ---
Subjective - Date & Time of Evaluation Date of Evaluation: 04/26/17 Time of Evaluation: 07:00 - Subjective Subjective: Stable on 2R s/p cath yesterday. See report. I spoke with Dr. Ortiz. Medical therapy advised. He feels well this AM. No CP or SOB. V/S noted. PE: Lungs: clear Cor.: S1S2 Abd.: soft Groin: OK Ext.: no edema Neuro.: alert I/O= 480/1225 Labs noted. Cr.= 2.5 Renal U/S noted. Cardiac cath: noted. Objective - Vital Signs/Intake and Output Vital Signs (last 24 hours): Temp Pulse Resp BP Pulse Ox 98.4 F 70 22 166/99 H 100 04/26/17 06:00 04/26/17 06:00 04/26/17 06:00 04/26/17 06:00 04/26/17 06:00 Intake and Output: 04/26/17 04/26/17 06:59 18:59 Intake Total 480 Output Total 1225 Balance -745 - Medications Medications: Current Medications Acetaminophen (Tylenol 325mg Tab) 650 mg PO Q6H PRN PRN Reason: Pain, Mild (1-3) Last Admin: 04/25/17 18:46 Dose: 650 mg Amlodipine Besylate (Norvasc) 10 mg PO DAILY [facility] Aspirin (Ecotrin) 81 mg PO DAILY [facility] Last Admin: 04/25/17 09:46 Dose: Not Given Atorvastatin Calcium (Lipitor) 20 mg PO DIN [facility] Last Admin: 04/25/17 17:42 Dose: 20 mg Famotidine (Pepcid) 20 mg PO DAILY [facility] Last Admin: 04/25/17 11:07 Dose: 20 mg Hydralazine HCl (Apresoline) 10 mg PO TID [facility] Metoprolol Succinate (Toprol Xl) 25 mg PO BRK [facility] - Labs Labs: 04/26/17 05:30 04/26/17 05:30 PT 11.9 SECONDS (9.4-12.5) 04/23/17 08:40 INR 1.08 (0.93-1.08) 04/23/17 08:40 APTT 35.3 Seconds (25.1-36.5) 04/23/17 08:40 Assessment and Plan - Assessment and Plan (Free Text) Assessment: CP/abn. nuclear stress test/CAD>medical tx. advised HBP CKD Renal Stones Obesity Plan: OOB D/C home later this AM. D/C meds: hydralazine 10 TID, ASA 81/day, Atorvastatin 20 mg./day, amlodipine 10 mg./day, metoprolol ER 25 mg./day F/U with me Sunday with BMP Renal F/U at [facility]. Eventual Lithotripsy to be arranged. I spoke with his yesterday and this AM by phone.
[2017-04-26 11:53] VITALS: BP 171/96; PULSE 60; RESP 18; TEMP 98.2
--- NOTE | 2017-04-27 09:19 | PN ---
DATE: 04/25/2017 SUBJECTIVE: The patient is seen lying in bed. He is awake, he is alert. He denies any chest pain. Denies any palpitations. Denies any headaches. Denies any nausea, vomiting. PHYSICAL EXAMINATION GENERAL: Obese middle-aged male lying in bed. Vital signs: Blood pressure 169/108, heart rate 65, respiratory rate 20, temperature 98.1. HEENT: Normocephalic, atraumatic, no pallor. Neck: Supple, no JVD. LUNGS: Bilateral equal entry, no rales. CARDIAC: S1 and S2. Regular rate and rhythm, no murmur, no rub. ABDOMEN: Obese, distended, soft, nontender, bowel sounds present. EXTREMITIES: Trace lower extremity edema. INTAKE AND OUTPUT: Not charted. LABORATORY DATA: WBCs 6.0, hemoglobin 13, hematocrit 39.8, platelets 199. Sodium 142, potassium 4.3, chloride 107, CO2 27, BUN 19, creatinine 2.3, glucose 98, calcium 9.1, phosphorus 3.5 magnesium 1.8, AST 20, ALT 25, albumin 3.7, globulin 4.0. Urinalysis yellow, slightly cloudy, pH 6.0, specific gravity 1.015, protein 100, blood large. CARDIAC CATHETERIZATION: Showed left mainstem was normal, left LAD had diffuse 40% tubular narrowing, left circumflex give rise to 1 large obtuse marginal, right coronary was dominant, posterior lateral branch was small to moderate-sized with 80% stenosis in the midportion, ejection fraction 50-55%, [id number] diffuse left LAD and circumflex disease, severe distal right coronary artery disease, total of 100 mL of contrast was used. RENAL ULTRASOUND: Left kidney 11.4, right kidney 10.1, moderate diffuse increased echogenicity of the right kidney, no hydro. CURRENT MEDICATIONS: Aspirin, Lipitor, Lovenox, amlodipine 5, Pepcid 20, half-normal saline at 100, Tylenol, lisinopril 20 not given and Mucomyst. ASSESSMENT AND PLAN: 1. Hypertension, severe hypertension, uncontrolled at this time. 2. Moderate coronary artery disease. 3. Chronic kidney disease stage III now status post cardiac cath. 4. Hyperlipidemia. 5. Morbid obesity. PLAN: 1. Hydralazine 25 mg t.i.d., the patient has severe uncontrolled hypertension at present. 2. Continue amlodipine 5 mg daily. 3. No SUNSHINE inhibitors or ARB for the time being. 4. Monitor daily creatinine. 5. Monitor urine output. 6. [facility] 7. Close outpatient followup. 8. Discussed with and the patient at bedside at length. Iram Van MD
--- NOTE | 2017-04-27 09:23 | PN ---
DATE: 04/25/2017 SUBJECTIVE: The patient is a 51-year-old male. The patient was examined on the bedside. Came back after catheterization. was sitting on the bedside also, feeling comfortable. Catheterization is done from the right groin area. No bleeding. Dressing looks like clean. No redness and warmth. PHYSICAL EXAMINATION: VITAL SIGNS: Blood pressure 159/108, temperature 98.1, pulse 74, respiratory rate 20. HEENT: Head normocephalic and atraumatic. Eyes: PERRLA. Extraocular muscles intact. Conjunctivae clear. Nose is patent. Mucous membranes moist. NECK: Supple. No carotid bruits. No JVD or thyromegaly. CHEST: Bilaterally symmetrical. HEART: S1 and S2 positive. LUNGS: Clear to auscultation. ABDOMEN: Soft. Bowel sounds present. No organomegaly. EXTREMITIES: No edema. No cyanosis. NEUROLOGIC: The patient is awake and alert. Moving all 4 extremities. No focal deficits. LABORATORY DATA: White blood cells 6.0, hemoglobin 13.0, hematocrit 39.8, and platelets 199. Sodium 142, potassium 4.2, BUN 90, creatinine 2.3, hemoglobin A1c 5.7. MEDICATIONS: Eyedrops, Ecotrin, Lipitor, Lovenox, Norvasc, Pepcid, NS, Tylenol, Zestril. ASSESSMENT AND PLAN: Mr. Cristo Chopra is a 51-year-old male with hypocholesteremia, hypertriglyceridemia, anemia, proteinuria, and hematuria. Came with chest pain, went for catheterization by Dr. Tre Ortiz. Has [id number] diffuse left anterior descending and circumflex disease. Severe distal right coronary artery disease. Borderline left ventricular systolic dysfunction. According to Director Software, need medical therapy appears most appropriate for this coronary artery disease. Additional beta-koby should be considered unless the contraindicated . As per Cardiology, Cardiology showed no contraindication on this patient. The patient has history of bradycardia also. Monitoring renal function test. The patient has history of renal insufficiency, nephrolithiasis, hypertension not very well controlled. Seen by Dr. Spaulding also. Discussion done with the patient's and the patient. We will repeat labs. Appreciated Cardiology input. We will follow up. Sofi Jordan MD [facility]
--- NOTE | 2017-04-27 09:32 | PN ---
DATE: 04/26/2017 130/90, heart rate 60, respiratory rate 18, temperature 98.2. HEENT: Normocephalic, atraumatic. NECK: Supple, no JVD. LUNGS: Bilateral equal air entry, no rales. CARDIAC: S1 and S2, regular rate and rhythm, no murmur, no rub. ABDOMEN: Obese, distended, soft, nontender, bowel sounds present. EXTREMITIES: Trace lower extremity edema. INTAKE AND OUTPUT: 480/1225 LABORATORY DATA: WBC 7, hemoglobin 13, hematocrit 40, platelets 201. Sodium 143, potassium 4.1, chloride 108, CO2 23, BUN 21, creatinine 2.5, glucose 108, calcium 9.3, AST 32, ALT 26. CURRENT MEDICATIONS: Hydralazine 10 t.i.d., Catapres 0.1 was given this morning, Ecotrin, Lipitor, Lovenox, amlodipine 10 mg, Pepcid, Toprol-XL 25, Tylenol. ASSESSMENT: 1. Nonobstructive coronary artery disease. 2. Chronic kidney disease stage III. 3. Severe hypertension. 4. Morbid obesity. PLAN: 1. Continue current antihypertensives, antihypertensive regimen to be fine tuned as outpatient. 2. Stable chronic kidney disease. 3. The patient is status post cardiac cath yesterday, monitor creatinine as outpatient. Iram Van MD
--- NOTE | 2017-04-27 19:51 | DS ---
CHIEF COMPLAINT: Chest pain. HISTORY OF PRESENT ILLNESS: Mr. Nav Lemons is a 51-year-old male with a past medical history of hypertension and renal stones that taken care by Dr. Mcintosh, came to the emergency department complaining of left-sided chest pain on 04/23/2017. Actually, patient's handle sewer is Dr. Armando, and the patient had chest pain and went to see Dr. Armando, he did stress test and that was abnormal. Plan was to do catheterization, but patient started chest pain before the date of catheterization. According to patient, pain is like a tightness and sometimes radiating to the left upper extremity. Patient also states that being more diaphoretic. Patient denies nausea, vomiting or diarrhea. We admitted the patient, called and consulted with Dr. Armando on 04/23/2017. Patient was seen and examined by Dr. Armando and patient went for catheterization 04/25/2017. Reviewed catheterization results, but patient's blood pressure was high and he not have physical therapy. Dr. Armando called and consulted with Dr. Van, sales attendant building materials, for blood pressure adjustment, but blood pressure was still high. Today, I give a stat dose of clonidine that brought the patient's blood pressure down and patient was getting the physical therapy, he walked well, discharged home with prescription for medications given, but he will follow up in my office tomorrow for rechecking of the blood pressure. PAST MEDICAL HISTORY: Kidney stones, hypertension, abnormal stress test. ALLERGIES: THE PATIENT IS NOT ALLERGIC WITH ANY MEDICATIONS. HOME MEDICATIONS: Patient does not remember. FAMILY HISTORY: Father and mother, noncontributory. HABITS: Never smoked. No drugs, no alcohol, no ethanol. No substance abuse. REVIEW OF SYSTEMS: Patient is examined on the bedside today early in the morning, looking comfortable. Blood pressure was still high. He is supposed to get physical therapy. No nausea, vomiting or diarrhea. No hematuria or hematochezia. No swelling of the legs. No chest pain. No palpitation. No headache. No dizziness. PHYSICAL EXAMINATION: VITAL SIGNS: Temperature 99.2, pulse 60, blood pressure 171/96, respiratory rate 18. HEENT: Head is normocephalic and atraumatic. Eyes, PERRLA, extraocular muscles are intact, conjunctivae clear. Nose is patent. Mucous membranes moist. NECK: Supple. No carotid bruits. No JVD or thyromegaly. CHEST: Bilaterally symmetrical. HEART: S1 and S2 positive. LUNGS: Clear to auscultation. ABDOMEN: Soft. Bowel sounds present. No organomegaly. EXTREMITIES: No edema. No cyanosis. NEUROLOGIC: The patient is awake and alert. Moving all 4 extremities. No focal deficit. MEDICATIONS: Hydralazine, Catapres, Ecotrin, Lipitor, Lovenox, Norvasc, amlodipine, Pepcid, sodium chloride, metoprolol, and Zestril. LABORATORY DATA: White blood cell 7.0, hemoglobin 13.2, hematocrit 40.2, platelets 201. Sodium 143, potassium 4.1, BUN 21, creatinine 2.5. Hemoglobin A1c is 5.7. ASSESSMENT AND PLAN: Mr. Nav Lemons is a 51-year-old male with anemia, renal insufficiency, hyperchloremia, proteinuria and hematuria, seen by the handle sewer Dr. Armando for chest pain, accelerated the hypertension. According to Dr. Ortiz as speak at medical therapy advised, chronic kidney disease, history of renal stones, obesity and Cardiology cleared the patient for discharge. He want to discharge the patient on hydralazine, aspirin, atorvastatin, amlodipine, and metoprolol. He will go to see Dr. Armando on Sunday, my office tomorrow. We will followup. Length of time discussion done with the patient's family. Gastrointestinal and deep venous thrombosis prophylaxis. Discharge home. We will try to adjust blood pressure as outpatient. Renal ultrasound was done and reviewed by me. We will followup. Sofi Jordan MD
== END 2017-04-26 14:14 | disposition home or self-care (01) | DRG 287 ==
LOC: ED 07:20 → ERH 10:35 → 2RSO 15:42
PROVIDERS: ADMIT Internal Medicine; ATTEND Internal Medicine
PROC: B2111ZZ Fluoroscopy of Multiple Coronary Arteries using Low Osmolar Contrast (ICD-10-PCS; principal; 2017-04-25)
PROC: B2151ZZ Fluoroscopy of Left Heart using Low Osmolar Contrast (ICD-10-PCS; 2017-04-25)
DX: I25.10 Atherosclerotic heart disease of native coronary artery without angina pectoris (principal); E87.8 Other disorders of electrolyte and fluid balance, not elsewhere classified; N18.3 Chronic kidney disease, stage 3 (moderate); Z68.41 Body mass index [BMI] 40.0-44.9, adult; E66.01 Morbid (severe) obesity due to excess calories; I12.9 Hypertensive chronic kidney disease with stage 1 through stage 4 chronic kidney disease, or unspecified chronic kidney disease; E78.1 Pure hyperglyceridemia; E78.5 Hyperlipidemia, unspecified; N20.0 Calculus of kidney; D64.9 Anemia, unspecified; E78.6 Lipoprotein deficiency; Z79.899 Other long term (current) drug therapy; Z87.442 Personal history of urinary calculi

== ENCOUNTER 2017-05-21 07:29 | Inpatient (IN) | payer BC ==
[2017-05-21 07:39] VITALS: BMI 42.9
--- NOTE | 2017-05-21 07:51 | ED PDOC ---
Arrival/HPI - General Chief Complaint: Chest Pain Time Seen by Provider: 05/21/17 07:39 Historian: Patient - History of Present Illness Narrative History of Present Illness (Text): 05/21/17 07:40 Cristo Chopra is a 51 y/o male, whose past medical history includes hypertension, who presents to the emergency department complaining of chest pain since this morning. Patient reports he woke up to get ready for work and describes the chest pain like if "someone was standing on his chest". When he got up from sitting down he became dizzy. Patient notes taking Aspirin every day. Patient denies nausea, vomiting, abdominal pain, diaphoresis, or other complaints. PMD: Dr. Alex Time/Duration: Prior to Arrival Symptom Onset: Sudden Symptom Course: Improving Quality: Pressure Activities at Onset: Rest Context: Sitting, Home Associated Symptoms (Text): 05/21/17 08:15 Patient slept last night fine. He was up getting ready for work when he developed chest pain. Patient had a recent cardiac catheterization last month which showed diffuse coronary artery disease managed medically. He reports pain is actually getting better. Past Medical History - Provider Review Nursing Documentation Reviewed: Yes - Infectious Disease Hx of Infectious Diseases: None - Tetanus Immunization Tetanus Immunization: Unknown - Past Medical History Past Medical History: No Previous - Cardiac Hx Cardiac Disorders: Yes Hx Hypertension: Yes - Pulmonary Hx Respiratory Disorders: No - Neurological Hx Neurological Disorder: No - HEENT Other/Comment: left eye sx age 11 pt stated "There was a white film over my eye causing impaired vision." - Renal Hx Kidney Stones: Yes (left lithotripsy 11 yrs ago) Other/Comment: pt recently dx with another left kidney stone - Endocrine/Metabolic Hx Endocrine Disorders: No - Hematological/Oncological Hx Blood Disorders: No - Integumentary Hx Dermatological Disorder: No - Musculoskeletal/Rheumatological Hx Back Pain: Yes (lower back pain) - Gastrointestinal Hx Gastrointestinal Disorders: Yes (obese) - Genitourinary/Gynecological Hx Genitourinary Disorders: No - Psychiatric Hx Psychophysiologic Disorder: No Hx Substance Use: No - Past Surgical History Past Surgical History: No Previous - Surgical History Other/Comment: Left eye - Suicidal Assessment Feels Threatened In Home Enviroment: No Family/Social History - Physician Review Nursing Documentation Reviewed: Yes Family/Social History: Unknown Family HX Smoking Status: Never Smoked Hx Alcohol Use: No Hx Substance Use: No Hx Substance Use Treatment: No Allergies/Home Meds Allergies/Adverse Reactions: Allergies No Known Allergies Allergy (Verified 05/21/17 07:45) Home Medications: Home Meds Medication Instructions Recorded Confirmed Atorvastatin [Lipitor] 20 mg PO DAILY 04/26/17 05/21/17 Metoprolol Succinate [Toprol Xl] 25 mg PO DAILY 04/26/17 05/21/17 amLODIPine [Norvasc] 10 mg PO DAILY 04/26/17 05/21/17 hydrALAZINE [hydralazine 25 mg PO BID 04/26/17 05/21/17 Hydrochloride] Aspirin [Aspirin Chewable] 1 tab PO DAILY 05/21/17 05/21/17 Review of Systems - Physician Review All systems were reviewed & negative as marked: Yes - Review of Systems Constitutional: absent: Fevers Eyes: absent: Vision Changes Respiratory: absent: SOB, Cough, Sputum, Wheezing Cardiovascular: Chest Pain. absent: Palpitations, Syncope Gastrointestinal: absent: Abdominal Pain, Nausea, Vomiting Genitourinary Male: absent: Dysuria, Frequency Musculoskeletal: absent: Back Pain Skin: absent: Rash Neurological: Dizziness. absent: Headache Endocrine: absent: Diaphoresis Physical Exam Vital Signs Reviewed: Yes Vital Signs Temp Pulse Resp BP Pulse Ox 05/21/17 07:30 98.2 F 70 18 132/86 97 Temperature: Afebrile Blood Pressure: Normal Pulse: Regular Respiratory Rate: Normal Appearance: Positive for: Well-Appearing, Non-Toxic, Comfortable, Other (obese) Pain Distress: None Mental Status: Positive for: Alert and Oriented X 3 - Systems Exam Head: Present: Atraumatic, Normocephalic Pupils: Present: PERRL Extroacular Muscles: Present: EOMI Conjunctiva: Present: Normal Mouth: Present: Moist Mucous Membranes Pharnyx: No: ERYTHEMA, EXUDATE, TONSILS ENLARGED Neck: Present: Normal Range of Motion Respiratory/Chest: Present: Clear to Auscultation, Good Air Exchange. No: Respiratory Distress, Accessory Muscle Use, Wheezes, Decreased Breath Sounds, Rales, Rhonchi, Tender to Palpation Cardiovascular: Present: Regular Rate and Rhythm, Normal S1, S2. No: Murmurs Abdomen: Present: Normal Bowel Sounds. No: Tenderness, Distention, Peritoneal Signs, Rebound, Guarding Upper Extremity: Present: Normal Inspection. No: Cyanosis, Edema Lower Extremity: Present: Normal Inspection, NORMAL PULSES, Normal ROM, Neurovascularly Intact, Capillary Refill < 2 s. No: Edema, Cyanosis, Tenderness , Swelling, Erythema, Deformity Neurological: Present: GCS=15, CN II-XII Intact, Speech Normal, Motor Func Grossly Intact, Normal Sensory Function, Normal Cerebellar Funct Skin: Present: Warm, Dry, Normal Color. No: Rashes Psychiatric: Present: Alert, Oriented x 3, Normal Insight, Normal Concentration Medical Decision Making ED Course and Treatment: 05/21/17 Impression: 51 year old male with chest pain. Normal exam. Plan: -- EKG -- Labs -- Chest X-ray -- Nitroglycerin -- Reassess and disposition Progress Notes: 05/21/17 08:16 EKG shows normal sinus rhythm with a sinus bradycardia rate approximately 50 with inverted T waves laterally and poor R-wave progression similar to EKG of 05/21/17 08:53 Discussed in detail with , will place on telemetry observation and consult with cardiology. Patient's troponin is in the indeterminate range 05/21/17 09:35 Chest X-ray: Creator : Angel Mercer MD COMPARISON: 04/23/2017 FINDINGS: LUNGS: No active pulmonary disease. PLEURA: No significant pleural effusion identified, no pneumothorax apparent. CARDIOVASCULAR: Normal. OSSEOUS STRUCTURES: No significant abnormalities. VISUALIZED UPPER ABDOMEN: Normal. OTHER FINDINGS: None. IMPRESSION: No active disease. - Lab Interpretations Lab Results: 05/21/17 07:55 05/21/17 07:55 Lab Results 05/21/17 07:55: Sodium 143, Potassium 4.6, Chloride 107, Carbon Dioxide 24, Anion Gap 16, BUN 21, Creatinine 2.3 H, Est GFR ( Amer) 36, Est GFR (Non- Af Amer) 30, Random Glucose 113 H, Calcium 9.5, Total Bilirubin 0.5, AST 25, ALT 39, Alkaline Phosphatase 69, Lactate Dehydrogenase 416, Total Creatine Kinase 54, Troponin I 0.05 D, NT-Pro-B Natriuret Pep 168, Total Protein 8.4 H, Albumin 4.2, Globulin 4.2, Albumin/Globulin Ratio 1.0 L 05/21/17 07:55: PT 12.5, INR 1.13 H, APTT 32.9 05/21/17 07:55: WBC 8.3, RBC 4.47, Hgb 13.3 L, Hct 40.8 L, MCV 91.3, MCH 29.8, MCHC 32.6, RDW 12.6, Plt Count 228, MPV 9.5, Gran % 58.0, Lymph % (Auto) 25.6, Jerauld % (Auto) 9.4 H, Eos % (Auto) 6.6 H, Baso % (Auto) 0.4, Gran # 4.83, Lymph # 2.1, Jerauld # 0.8 H, Eos # 0.6, Baso # 0.03 I have reviewed the lab results: Yes - RAD Interpretation Radiology Orders: 05/21/17 07:48 CHEST PORTABLE [RAD] Stat Engineering Illustrator: Radiologist - EKG Interpretation Interpreted by ED Physician: Yes Type: 12 lead EKG - Medication Orders Current Medication Orders: Discontinued Medications Nitroglycerin (Nitrostat Sl Tab) 0.4 mg SL STAT STA Stop: 05/21/17 07:48 Last Admin: 05/21/17 08:01 Dose: 0.4 mg - Scribe Statement The provider has reviewed the documentation as recorded by the Alix Ferris Provider Scribe Attestation: All medical record entries made by the Alix were at my direction and personally dictated by me. I have reviewed the chart and agree that the record accurately reflects my personal performance of the history, physical exam, medical decision making, and the department course for this patient. I have also personally directed, reviewed, and agree with the discharge instructions and disposition. Disposition/Present on Arrival - Present on Arrival Any Indicators Present on Arrival: No History of DVT/PE: No History of Uncontrolled Diabetes: No Urinary Catheter: No History of Decub. Ulcer: No History Surgical Site Infection Following: None - Disposition Have Diagnosis and Disposition been Completed?: Yes Diagnosis: Chest pain, Obesity, Renal failure Disposition: HOSPITALIZED Disposition Time: 08:54 Patient Plan: Observation, Telemetry Patient Problems: Current Active Problems Problem Status Onset Chest pain Acute Renal failure Acute Obesity Chronic Condition: GOOD
[2017-05-21 08:08] LABS: BASO # 0.03 K/mm3 (0.0-2.0); BASO % 0.4 % (0.0-3.0); EOS # 0.6 (0.0-0.7); EOS % 6.6 % (1.5-5.0); GRAN # 4.83 (1.4-6.5); HEMATOCRIT 40.8 % (42.0-52.0); LYMPH # 2.1 (1.2-3.4); LYMPH % 25.6 % (22.0-35.0); MEAN CELL VOLUME 91.3 fl (80.0-105.0); MEAN CORPUSCULAR HEMOGLOBIN 29.8 pg (25.0-35.0); MEAN CORPUSCULAR HGB CONC 32.6 g/dl (31.0-37.0); MEAN PLATELET VOLUME 9.5 fl (7.0-11.0); MONO # 0.8 (0.1-0.6); MONO % 9.4 % (1.0-6.0); RED CELL DISTRIBUTION WIDTH 12.6 % (11.5-14.5); WHITE BLOOD COUNT 8.3 10^3/ul (4.5-11.0)
[2017-05-21 08:17] LABS: INR 1.13 (0.93-1.08); PARTIAL THROMBOPLASTIN TIME 32.9 Seconds (25.1-36.5)
[2017-05-21 08:30] LABS: BILIRUBIN,TOTAL 0.5 mg/dL (0.2-1.3); CALCIUM 9.5 mg/dL (8.4-10.5); POTASSIUM 4.6 mmol/L (3.6-5.0); TOTAL PROTEIN 8.4 g/dL (5.8-8.3)
[2017-05-21 08:37] LABS: TROPONIN I 0.05 ng/mL
--- NOTE | 2017-05-21 09:32 | RAD ---
HISTORY: cp COMPARISON: 04/23/2017 FINDINGS: LUNGS: No active pulmonary disease. PLEURA: No significant pleural effusion identified, no pneumothorax apparent. CARDIOVASCULAR: Normal. OSSEOUS STRUCTURES: No significant abnormalities. VISUALIZED UPPER ABDOMEN: Normal. OTHER FINDINGS: None. IMPRESSION: No active disease.
[2017-05-21 12:06] LABS: BASO # 0.02 K/mm3 (0.0-2.0); BASO % 0.2 % (0.0-3.0); EOS # 0.6 (0.0-0.7); EOS % 6.7 % (1.5-5.0); GRAN # 4.76 (1.4-6.5); HEMATOCRIT 39.5 % (42.0-52.0); LYMPH # 2.8 (1.2-3.4); LYMPH % 31.5 % (22.0-35.0); MEAN CELL VOLUME 91.4 fl (80.0-105.0); MEAN CORPUSCULAR HEMOGLOBIN 29.6 pg (25.0-35.0); MEAN CORPUSCULAR HGB CONC 32.4 g/dl (31.0-37.0); MEAN PLATELET VOLUME 9.6 fl (7.0-11.0); MONO # 0.7 (0.1-0.6); MONO % 7.6 % (1.0-6.0); RED CELL DISTRIBUTION WIDTH 12.7 % (11.5-14.5); WHITE BLOOD COUNT 8.8 10^3/ul (4.5-11.0)
[2017-05-21 12:16] LABS: BILIRUBIN,TOTAL 0.5 mg/dL (0.2-1.3); CALCIUM 9.5 mg/dL (8.4-10.5); POTASSIUM 4.7 mmol/L (3.6-5.0); TOTAL PROTEIN 8.5 g/dL (5.8-8.3)
[2017-05-21] MEDS ORDERED: Pneumococcal 23-Valent Vaccine IM ONE (13:01)
[2017-05-21] MEDS ORDERED: Influenza Vaccine 60 mcg/0.5 mL SYR (4YR UP) IM ONE (13:01)
--- NOTE | 2017-05-21 13:43 | CARD ---
APPROVED REPORT EKG Measurement Heart [id number] <Conclusion> Sinus bradycardia with sinus arrhythmia PRWP Possible Antrerior infarct, age undetermined T wave abnormality, consider lateral ischemia
[2017-05-21] MEDS: Metoprolol Succinate 25 mg XL Tab PO SCH (17:02)
[2017-05-21] MEDS: Sodium Chloride 0.9% 1,000 ML IV SCH (17:02)
--- NOTE | 2017-05-21 22:19 | CP.PCM.HP ---
<Burk,Arlene Santana - Last Filed: 05/21/17 22:33> History of Present Illness - History of Present Illness History of Present Illness: 51yr male w/ history of CAD (s/p cardiac cath 04/2017), HTN, Hyperlipidemia, L kidney nephrolithiasis, and obesity. He presents in ED w/ chest pain that began this morning and describes it as pressure. The pain began in chest and radiated to the L side of his back. He reports dizziness while going from a seated to standing position. He reports SOB relieved with oxygen. He states that he currently feels relief of chest pain but he is experiencing L flank pain. He was scheduled to f/u with Dr. Mcintosh for L kidney stones procedures. His Shantal Chopra (P# [phone]) was a at bedside during examination. He denies any nausea, vomiting, headache, chills, constipation, diarrhea or fever. Present on Admission - Present on Admission History of DVT/PE: No History of Uncontrolled Diabetes: No Urinary Catheter: No Decubitus Ulcer Present: No Review of Systems - Constitutional Constitutional: As Per HPI. absent: Anorexia, Chills, Daytime Sleepiness, Excessive Sweating, Fatigue, Fever, Frequent Falls, Headache, Increased Appetite , Lethargy, Malaise, Night Sweats, Snoring, Sleep Apnea, Weight Gain, Weight Loss, Weakness, Other - EENT Eyes: As Per HPI Ears: As Per HPI Nose/Mouth/Throat: As Per HPI - Cardiovascular Cardiovascular: Chest Pain, Dyspnea, Lightheadedness - Respiratory Respiratory: As Per HPI - Gastrointestinal Gastrointestinal: As Per HPI - Genitourinary Genitourinary: Flank Pain, Hx Renal/Bladder Calculi - Musculoskeletal Musculoskeletal: As Per HPI - Integumentary Integumentary: As Per HPI - Neurological Neurological: Dizziness - Psychiatric Psychiatric: As Per HPI - Endocrine Endocrine: As Per HPI - Hematologic/Lymphatic Hematologic: As Per HPI Past Patient History - Infectious Disease Hx of Infectious Diseases: None - Tetanus Immunizations Tetanus Immunization: Unknown - Past Medical History & Family History Past Medical History?: Yes Past Family History: Reviewed and not pertinent - Past Social History Smoking Status: Never Smoked - CARDIAC Hx Cardiac Disorders: Yes Hx Hypercholesterolemia: Yes Hx Hypertension: Yes - PULMONARY Hx Respiratory Disorders: No - NEUROLOGICAL Hx Neurological Disorder: No - HEENT Hx HEENT Problems: (glasses/nearsighted and farsighted) Other/Comment: left eye sx age 11 pt stated "There was a white film over my eye causing impaired vision." Vision ok now - RENAL Hx Kidney Stones: Yes (left lithotripsy 11 yrs ago) Other/Comment: pt recently dx with another left kidney stone - ENDOCRINE/METABOLIC Hx Endocrine Disorders: No - HEMATOLOGICAL/ONCOLOGICAL Hx Blood Disorders: No - INTEGUMENTARY Hx Dermatological Problems: No - MUSCULOSKELETAL/RHEUMATOLOGICAL Hx Falls: No - GASTROINTESTINAL Hx Gastrointestinal Disorders: Yes (obese) - GENITOURINARY/GYNECOLOGICAL Hx Genitourinary Disorders: No - PSYCHIATRIC Hx Substance Use: No - SURGICAL HISTORY Other/Comment: Left eye Meds Allergies/Adverse Reactions: Allergies Allergy/AdvReac Type Severity Reaction Status Date / Time No Known Allergies Allergy Verified 05/21/17 07:45 Physical Exam - Constitutional Appears: No Acute Distress - Head Exam Head Exam: ATRAUMATIC, NORMAL INSPECTION, NORMOCEPHALIC - Eye Exam Eye Exam: EOMI, Normal appearance, PERRL Additional comments: left eye sx age 11 - ENT Exam ENT Exam: Mucous Membranes Moist, Normal Exam - Neck Exam Neck exam: Positive for: Normal Inspection - Respiratory Exam Respiratory Exam: Decreased Breath Sounds, Clear to Auscultation Bilateral, NORMAL BREATHING PATTERN - Cardiovascular Exam Cardiovascular Exam: REGULAR RHYTHM, +S1, +S2 - GI/Abdominal Exam Additional comments: L flank pain - Extremities Exam Extremities exam: Positive for: normal inspection - Back Exam Back exam: CVA tenderness (L) - Neurological Exam Neurological exam: Alert, CN II-XII Intact, Normal Gait, Oriented x3, Reflexes Normal - Psychiatric Exam Psychiatric exam: Normal Affect, Normal Mood - Skin Skin Exam: Dry, Intact, Normal Color, Warm Results - Vital Signs Recent Vital Signs: Last Vital Signs Temp 98.2 F 05/21/17 18:00 Pulse 65 05/21/17 18:00 Resp 18 05/21/17 18:00 BP 145/89 05/21/17 18:00 Pulse Ox 98 05/21/17 18:00 - Labs Result Diagrams: 05/21/17 11:55 05/21/17 11:55 Labs: Laboratory Results - last 24 hr 05/21/17 05/21/17 11:55 11:55 WBC 8.8 RBC 4.32 Hgb 12.8 L Hct 39.5 L MCV 91.4 MCH 29.6 MCHC 32.4 RDW 12.7 Plt Count 239 MPV 9.6 Gran % 54.0 Lymph % (Auto) 31.5 [place] % (Auto) 7.6 H Eos % (Auto) 6.7 H Baso % (Auto) 0.2 Gran # 4.76 Lymph # 2.8 [place] # 0.7 H Eos # 0.6 Baso # 0.02 Sodium 142 Potassium 4.7 Chloride 107 Carbon Dioxide 24 Anion Gap 17 BUN 20 Creatinine 2.3 H Est GFR ( Amer) 36 Est GFR (Non-Af Amer) 30 Random Glucose 95 Calcium 9.5 Total Bilirubin 0.5 AST 19 ALT 42 Alkaline Phosphatase 78 Total Protein 8.5 H Albumin 4.1 Globulin 4.3 Albumin/Globulin Ratio 1.0 L - Impressions Impression: Admit to Telemetry Assessment & Plan (1) Left flank pain Status: Acute Comment: -Consulted Dr. Mcintosh. -Order pain analgesia as needed (2) Shortness of breath Status: Acute Comment: -Consult to Dr. Ramon. -O2 via NC, as needed. -CXR reviewed (3) Chest pain Status: Acute Comment: -Consult to Dr. Ortiz. -Trop, Lipid Panel, ECG (4) Renal failure Status: Acute Comment: -Prescribed NS IVF. -CBC, CMP ordered (5) Anemia Status: Acute Comment: -Ordered CBC, Vit B12, Folate. -Will continue to monitor (6) HTN (hypertension) Status: Chronic Comment: -Resumed Metoprolol, Apresoline, Amlodipine. -ASA for CAD (7) Hyperlipemia Status: Chronic Comment: -Atorvastatin prescribed. -Ordered Lipid Panel (8) Obesity Status: Chronic Comment: -Hyperglycemia noted. -Ordered A1C - Assessment and Plan (Free Text) Plan: Reviewed: ECG = (+) SB w/ SA, possible ant infarct, T wave abn. consider lateral ischemia CXR = (-) WNL Consult: Cardio - Dr. Ortiz Urology - Dr. Mcintosh Pulmonary - Dr. Ramon - Date & Time Date: 05/21/17 Time: 10:40 <Sofi Jordan - Last Filed: 05/22/17 15:23> Present on Admission - Present on Admission Any Indicators Present on Admission: No Results - Vital Signs Recent Vital Signs: Last Vital Signs Temp 97.3 F L 05/22/17 12:00 Pulse 67 05/22/17 12:00 Resp 20 05/22/17 12:00 BP 111/76 05/22/17 12:00 Pulse Ox 99 05/22/17 06:00 - Labs Result Diagrams: 05/22/17 06:00 05/22/17 06:00 Labs: Laboratory Results - last 24 hr 05/22/17 05/22/17 05/22/17 06:00 06:00 06:00 WBC 8.2 RBC 4.30 Hgb 12.8 L Hct 39.1 L MCV 90.9 MCH 29.8 MCHC 32.7 RDW 12.9 Plt Count 236 MPV 9.6 Sodium 142 Potassium 4.5 Chloride 107 Carbon Dioxide 26 Anion Gap 13 BUN 22 H Creatinine 2.4 H Est GFR ( Amer) 34 Est GFR (Non-Af Amer) 28 Random Glucose 103 Hemoglobin A1c 5.7 Calcium 9.3 TIBC Ferritin 105.0 Total Bilirubin 0.5 AST 30 ALT 34 Alkaline Phosphatase 72 Troponin I 0.04 Total Protein 8.2 Albumin 4.0 Globulin 4.2 Albumin/Globulin Ratio 0.9 L Triglycerides 155 Cholesterol 143 LDL Cholesterol Direct 71 HDL Cholesterol 27 L Vitamin B12 377 Folate 7.8 05/22/17 06:00 WBC RBC Hgb Hct MCV MCH MCHC RDW Plt Count MPV Sodium Potassium Chloride Carbon Dioxide Anion Gap BUN Creatinine Est GFR ( Amer) Est GFR (Non-Af Amer) Random Glucose Hemoglobin A1c Calcium TIBC 222 L Ferritin Total Bilirubin AST ALT Alkaline Phosphatase Troponin I Total Protein Albumin Globulin Albumin/Globulin Ratio Triglycerides Cholesterol LDL Cholesterol Direct HDL Cholesterol Vitamin B12 Folate Assessment & Plan - Assessment and Plan (Free Text) Plan: pt is seen and examined at bed side , looking comfortable , agreed all above . chart . meds. noted , urology and cardiology consult called , will cont. same meds
[2017-05-22] MEDS: Sodium Chloride 0.9% 1,000 ML IV SCH ×2 (03:45→18:00)
[2017-05-22 07:16] LABS: HEMATOCRIT 39.1 % (42.0-52.0); MEAN CELL VOLUME 90.9 fl (80.0-105.0); MEAN CORPUSCULAR HEMOGLOBIN 29.8 pg (25.0-35.0); MEAN CORPUSCULAR HGB CONC 32.7 g/dl (31.0-37.0); MEAN PLATELET VOLUME 9.6 fl (7.0-11.0); RED CELL DISTRIBUTION WIDTH 12.9 % (11.5-14.5); WHITE BLOOD COUNT 8.2 10^3/ul (4.5-11.0)
--- NOTE | 2017-05-22 07:23 | CON ---
DATE: 05/21/2017 REFERRING PHYSICIAN: Sofi Jordan MD REASON FOR CONSULTATION: Chest pain, shortness of breath, may have sleep apnea syndrome. HISTORY OF PRESENT ILLNESS: This is a 51-year-old gentleman who is morbidly obese, past medical history significant for hypertension, has a loud snoring, not much sleepy during the daytime. This morning, he had some chest discomfort, comes into emergency room, also has some dizzy spell. The patient admitted to the hospital for further workup. Presently, there is no chest pain. No nausea. No vomiting. No diarrhea. No leg pain. No leg swelling. PAST MEDICAL HISTORY: Hypertension, morbid obesity, also has a history of renal stone 11 years ago, had a lithotripsy, also had another stone recently, history of lumbar radiculopathy. SOCIAL HISTORY: Never smoke. No history of alcohol abuse. He works with [employer]. FAMILY HISTORY: No significant cardiopulmonary disease reported. ALLERGIES: NONE KNOWN. MEDICATIONS: Presently, he is on hydralazine 25 mg twice a day, aspirin 81 mg daily, Lipitor 20 mg daily, Norvasc 10 mg daily, Pepcid 20 mg twice a day, IV fluid normal saline at 80 mL per hour, Toprol XL 25 mg daily. REVIEW OF SYSTEMS: No headache. No rhinitis. Admit to loud snoring, episode of chest pain. No nausea. No leg pain. No leg swelling. PHYSICAL EXAMINATION: GENERAL: Sitting at the side of the bed, in no acute distress. VITAL SIGNS: Temperature is 98, heart rate 55, respiratory rate is 20, blood pressure 145/89, pulse oximetry is 100% on 2 L nasal cannula. HEENT: Moist mucous membranes. Crowded airway. NECK: Supple. No JVD. LUNGS: Have a fair airflow with few rhonchi. HEART: S1 and S2. ABDOMEN: Soft, nontender. No organomegaly. EXTREMITIES: No edema. NEUROLOGIC: Awake, alert, follows simple commands. LABORATORY DATA: Shows hemoglobin 12.8, hematocrit 39.5, WBC 8.8, platelet is 239. INR 1.13, PTT is 33. Sodium 142, potassium 4.7, chloride 107, bicarbonate 24, BUN 20, creatinine 2.3, glucose 95, calcium 9.5, total bilirubin 0.5, AST 19, ALT 42, alkaline phosphatase is 78, albumin is 4.1. Chest x-ray done today shows no infiltrate or effusion. IMPRESSION AND PLAN: Chest pain, rule out coronary artery disease, has obesity, hypertension, may have a component of sleep apnea syndrome, renal insufficiency. We will continue present medication, keep head at 45 degrees, cardiac workup, sleep apnea precaution, avoid sedation if sedated, needs close cardiopulmonary monitoring. We will do outpatient attended sleep study upon discharge. Thank you and we will follow with you. Chace Ramon MD
[2017-05-22 07:28] LABS: TROPONIN I 0.04 ng/mL
[2017-05-22 07:37] LABS: ALB/GLOB RATIO 0.9 (1.1-1.8); BILIRUBIN,TOTAL 0.5 mg/dL (0.2-1.3); CALCIUM 9.3 mg/dL (8.4-10.5); POTASSIUM 4.5 mmol/L (3.6-5.0); TOTAL PROTEIN 8.2 g/dL (5.8-8.3)
[2017-05-22] MEDS: Metoprolol Succinate 25 mg XL Tab PO SCH (09:11)
--- NOTE | 2017-05-22 12:04 | CARD ---
APPROVED REPORT EKG Measurement Heart [id number] <Conclusion> Sinus bradycardia with sinus arrhythmia Septal infarct, age undetermined T wave abnormality, consider lateral ischemia No change
--- NOTE | 2017-05-22 13:04 | CON ---
DATE: 05/22/2017 CHIEF COMPLAINT: History of left renal stone. HISTORY OF PRESENT ILLNESS: This is a 51-year-old obese male with a history of non-obstructing large left renal stone. He wants to have an elective stent placement and left ESWL by Dr. Mcintosh, my partner. The patient was admitted to the hospital complaining of some chest pain radiating to the left side of his back. There was some shortness of breath. Currently, he is feeling comfortable. He states he has some intermittent mild left flank pain, no fever or chills. Previous x-ray showed the stone non-obstructing. PAST MEDICAL HISTORY: Significant for as mentioned obesity. Socially, he has never smoked. He does have a history of hypertension, high cholesterol, past history of cardiac disorders. PAST SURGICAL HISTORY: He has had surgery on his left eye. ALLERGIES: He has no allergies. FAMILY HISTORY: Noncontributory. REVIEW OF SYMPTOMS: No current symptoms referable to the head, eyes, ears, nose or throat. No chest pain. No shortness of breath now. No dysuria, urgency, or frequency. No nausea or vomiting. No psychiatric or neurologic issues. PHYSICAL EXAMINATION VITAL SIGNS: Shows him to be afebrile. Pulse 59, blood pressure 152/93, respirations 20. HEENT: Normocephalic. Sclerae are clear. Conjunctivae noninjected. CHEST: No CVA pain. ABDOMEN: No hepatosplenomegaly, rebound, or guarding. No suprapubic tenderness. NEUROLOGIC: Alert and oriented x3. SKIN: No purpura or edema. GENITALIA: Unremarkable. LABORATORY DATA: Lab work shows white count 8200, hemoglobin 12.8. His chemistry show creatinine of 2.4 with a BUN of 22. Patient had renal ultrasound a month ago. I am going to repeat renal ultrasound just to make sure there is no obstruction on the left, and if there is none, then he would proceed as initially planned and when he is discharged from the hospital and medically stable, to see Dr. Mcintosh in the office, and he would arrange electively to do a left stent and left ESWL. If the patient has any significant obstruction, he would need to have a stent placed but this would also depend on his cardiac issues whether or not there was any acute cardiac event going on. Louis Wells MD [facility] # [id number]
[2017-05-22 13:06] LABS: FOLATE 7.8 ng/mL
--- NOTE | 2017-05-22 13:10 | US ---
PROCEDURE: Ultrasound of the Kidneys HISTORY: any left hydro? hx of stone COMPARISON: None available. TECHNIQUE: Sonogram of the kidneys. FINDINGS: RIGHT KIDNEY: Measures: cm. Normal in size, contour and echogenicity. 11.0 LEFT KIDNEY: Measures: 11.4 cm. Normal in size, contour and echogenicity. Mid renal simple cortical cyst, 3.1 x 4.3 x 3.2 cm. No other mass. Nonobstructing calculi in mid to lower pole, 9 mm and 12 mm, respectively Upper pole simple cortical cyst, OTHER FINDINGS: None. IMPRESSION: Two nonobstructing left renal calculi. Left renal simple cortical cyst. No additional abnormality.
[2017-05-22 16:14] VITALS: O2SAT 97
[2017-05-22 18:18] VITALS: BP 147/82; PULSE 60
[2017-05-22 18:52] VITALS: RESP 21; TEMP 97
--- NOTE | 2017-05-22 21:53 | PN ---
DATE: 05/22/2017 PULMONARY PROGRESS NOTE REFERRING PHYSICIAN: Sofi Jordan MD. SUBJECTIVE: The patient is sitting up in the chair. The day was unremarkable. Feels much better. No more chest pain. No nausea. No vomiting. No diarrhea. No leg pain or leg swelling. PHYSICAL EXAMINATION: GENERAL: In no acute distress. VITAL SIGNS: Temperature 98, heart rate is 60, respiratory rate is 20, blood pressure 147/82, pulse ox 97% on room air. HEENT: Moist mucous membrane. Crowded airway. NECK: Supple. No JVD. LUNGS: Have fair airflow with rhonchi. HEART: S1 and S2. ABDOMEN: Soft, nontender. No organomegaly. EXTREMITIES: No edema. NEUROLOGICAL: Awake, alert. Follows simple command. LABORATORY DATA: Shows hemoglobin 12.8, hematocrit 39.1, WBC 8.2, platelet count is 236. Sodium 142, potassium 4.5, chloride 107, bicarbonate 26, BUN 22, creatinine 2.4, glucose is 103, calcium is 9.3, TIBC 222, ferritin 105, AST 30, ALT 34, alk phos is 72, albumin is 4.0, globulin 4.2, cholesterol is 143, B12 is 377, folate 7.8. Had a renal ultrasound done, which shows 2 nonobstructive left renal calculi, left renal simple cortical cyst. No additional abnormality reported. MEDICATIONS: Reviewed and no new changes reported. IMPRESSION AND PLAN: Admitted with chest pain, hypertension, maybe sleep apnea syndrome, renal stones, maybe gastroesophageal reflux disease. Seen by Cardiology and Nephrology. Being discharged home. Will have outpatient followup with Dr. Jordan, Cardiology and Urology. He needs attended sleep study upon discharge. Fall precautions. Sleep apnea precautions. The patient expressed understanding of sleep apnea and its consequences. We will follow with you. Chace Ramon MD
--- NOTE | 2017-05-23 08:04 | CON ---
DATE: 05/22/2017 INDICATIONS: Chest pain. HISTORY OF PRESENT ILLNESS: This is a 51-year-old man known to me, admitted yesterday to the emergency room with chest pain described as like somebody was standing on his chest. It was associated with dizziness. He came to the emergency room and was admitted to telemetry. The symptoms subsided fairly promptly and they have not recurred. He feels well this morning. He has mild shortness of breath, but no orthopnea, PND, syncope, presyncope, lightheadedness, dizziness, or vertigo. No palpitations, claudication, fever, chills, cough, sputum production, or hemoptysis. No abdominal pain, nausea, vomiting, diarrhea, constipation, or melena. There was some left flank pain and he is known to have renal stones. PAST MEDICAL HISTORY: Notable for recent cardiac evaluation for chest pain and an abnormal EKG preoperatively. His nuclear stress test was abnormal. He underwent cardiac catheterization, which disclosed diffuse coronary disease with severe lesion in a small posterolateral branch of the right coronary artery. Medical therapy was advised. There is also history of hypertension, chronic kidney disease, obesity, and renal stones. He has undergone lithotripsy in the past. Urologic evaluation is pending. MEDICATIONS AT THE TIME OF ADMISSION: Include Lipitor, metoprolol, Norvasc, hydralazine, and aspirin. ALLERGIES: THERE ARE NO MEDICATION ALLERGIES. SOCIAL HISTORY: He lives at home with his . He is ambulatory. He is employed by [employer]. 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 He is a nonsmoker. He does not drink alcohol significantly. FAMILY HISTORY: Noncontributory. REVIEW OF SYSTEMS: A 10-point review of systems is otherwise unremarkable except as noted above. PHYSICAL EXAMINATION: GENERAL: He is a well-developed male, in no acute distress. He is sitting on his bed in telemetry. VITAL SIGNS: Unremarkable. He is in sinus rhythm to sinus bradycardia at 57 to 65 beats per minute. He is afebrile, last blood pressure 152/93, O2 sat 94% to 99%, and respirations 18 to 20. HEENT: Reveals no neck vein distention, thyromegaly, or carotid bruits. Mucous membranes moist. Conjunctivae pink. NECK: Supple. LUNGS: Lung medeiros clear. HEART: Revealed normal first and second heart sounds without murmur, gallop, rub or click. ABDOMEN: Soft. Bowel sounds present. No mass, organomegaly, tenderness, rebound, or guarding. No CVA tenderness. EXTREMITIES: Reveals no cyanosis, clubbing, or edema. NEUROLOGIC: He was awake, alert, and oriented. SKIN: Warm and dry. No rash or cellulitis. LABORATORY AND IMAGING: A chest x-ray, portable study done in the emergency room reveals no active disease. EKG demonstrates regular sinu rhythm. EKG reveals sinus bradycardia, anteroseptal myocardial infarction, intraventricular conduction delay, and ST-T wave changes consistent with ischemia, it is basically unchanged from prior EKG. CBC is unremarkable. PT, INR, and PTT unremarkable. Electrolytes unremarkable. BUN 22 and creatinine 2.3, repeat 2.4. Blood sugars in the 100 to 113 range. LFTs unremarkable. CK 54. Troponin 0.05 and 0.04. BNP 168. Total cholesterol 143, triglycerides 155, LDL is 71, and HDL is 27. IMPRESSION AND PLAN: Cristo Chopra is a 51-year-old man with known coronary artery disease, managed medically who comes in with chest pain described as like someone standing on his chest, this resolved. There was no evidence of acute myocardial infarction. He has known coronary artery disease including a severe posterolateral branch lesion, which was felt to be too small for intervention. He has chronic kidney disease and renal stones and lithotripsy is planned in the near future. At this point, I will review his coronary anatomy with Dr. Ortiz to see if we have anything to offer him interventionally. In the meantime, we will continue his current medical therapy including aspirin, Lipitor, metoprolol, hydralazine, and Norvasc. He is going to have an urologic evaluation and followup. Once his chest pain has stabilized, he will consider lithotripsy. He should have a renal evaluation, which I have suggested to him, but it has not yet been accomplished. I will follow along with you. I will make additional recommendations based on his clinical course. Wenceslao Armando MD
[2017-05-23 20:33] LABS: TOTAL PSA 0.5 ng/mL (< or = 4.0)
== END 2017-05-22 18:55 | disposition home or self-care (01) | DRG 313 ==
LOC: ED 07:29 → ERH 09:20 → 3RSO 10:03 → OBSVTOIN 21:59
PROVIDERS: ADMIT Internal Medicine; ATTEND Internal Medicine
DX: R07.9 Chest pain, unspecified (principal); I25.10 Atherosclerotic heart disease of native coronary artery without angina pectoris; E66.01 Morbid (severe) obesity due to excess calories; Z68.41 Body mass index [BMI] 40.0-44.9, adult; D64.9 Anemia, unspecified; E78.00 Pure hypercholesterolemia, unspecified; E78.5 Hyperlipidemia, unspecified; M54.16 Radiculopathy, lumbar region; I12.9 Hypertensive chronic kidney disease with stage 1 through stage 4 chronic kidney disease, or unspecified chronic kidney disease; N18.9 Chronic kidney disease, unspecified; N20.0 Calculus of kidney; G47.30 Sleep apnea, unspecified

== ENCOUNTER 2017-06-14 07:28 | Emergency (ER) | payer BC ==
[2017-06-14 07:29] VITALS: BMI 42.9
[2017-06-14 07:49] VITALS: RESP 18; TEMP 97.2
--- NOTE | 2017-06-14 07:49 | ED PDOC ---
Arrival/HPI - General Chief Complaint: Chest Pain Time Seen by Provider: 06/14/17 07:35 Historian: Patient - History of Present Illness Narrative History of Present Illness (Text): 06/14/17 07:42 A 51 year old male, whose past medical history includes CAD with cardiac catheterization, hypertension and left kidney stone, presents to the emergency department complaining of chest pain. The patient notes that the pain began at 4 AM. He states that he was already awake. The patient notes that he ate a donut and iced tea for breakfast minutes before he began to experience the chest pain. The patient denies fevers, chills, headache, dizziness, shortness of breath, dyspnea on exertion, cough, abdominal pain, nausea, vomiting, diarrhea, back pain, neck pain, urinary/bowel changes, or any other complaint. PMD: Dr. Jordan Video Production Engineer: Dr. Armando Time/Duration: 4-6 hours Symptom Onset: Sudden Symptom Course: Unchanged Activities at Onset: Rest, Light Context: Home Past Medical History - Provider Review Nursing Documentation Reviewed: Yes - Infectious Disease Hx of Infectious Diseases: None - Tetanus Immunization Tetanus Immunization: Unknown - Past Medical History Past Medical History: No Previous - Cardiac Hx Cardiac Disorders: Yes Hx Hypertension: Yes - Pulmonary Hx Respiratory Disorders: No - Neurological Hx Neurological Disorder: No - HEENT Hx HEENT Disorder: (glasses/nearsighted and farsighted) Other/Comment: left eye sx age 11 pt stated "There was a white film over my eye causing impaired vision." Vision ok now - Renal Hx Kidney Stones: Yes (left lithotripsy 11 yrs ago) Other/Comment: pt recently dx with another left kidney stone - Endocrine/Metabolic Hx Endocrine Disorders: No - Hematological/Oncological Hx Blood Disorders: No - Integumentary Hx Dermatological Disorder: No - Musculoskeletal/Rheumatological Hx Falls: No - Gastrointestinal Hx Gastrointestinal Disorders: Yes (obese) - Genitourinary/Gynecological Hx Genitourinary Disorders: No - Psychiatric Hx Psychophysiologic Disorder: No Hx Substance Use: No - Past Surgical History Past Surgical History: No Previous - Surgical History Other/Comment: Left eye - Suicidal Assessment Feels Threatened In Home Enviroment: No Family/Social History - Physician Review Nursing Documentation Reviewed: Yes Family/Social History: No Known Family HX Smoking Status: Never Smoked Hx Alcohol Use: No Hx Substance Use: No Hx Substance Use Treatment: No Allergies/Home Meds Allergies/Adverse Reactions: Allergies No Known Allergies Allergy (Verified 06/14/17 07:33) Home Medications: Home Meds Medication Instructions Recorded Confirmed Atorvastatin [Lipitor] 20 mg PO DAILY 04/26/17 06/14/17 Metoprolol Succinate [Toprol Xl] 25 mg PO DAILY 04/26/17 06/14/17 amLODIPine [Norvasc] 10 mg PO DAILY 04/26/17 06/14/17 hydrALAZINE [hydralazine 25 mg PO BID 04/26/17 06/14/17 Hydrochloride] Aspirin [Aspirin Chewable] 1 tab PO DAILY 05/21/17 06/14/17 Review of Systems - Physician Review All systems were reviewed & negative as marked: Yes - Review of Systems Constitutional: absent: Fevers, Night Sweats Respiratory: absent: SOB, Cough Cardiovascular: Chest Pain. absent: JUSTICE Gastrointestinal: absent: Abdominal Pain, Stool Changes, Diarrhea, Nausea, Vomiting Genitourinary Male: absent: Urinary Output Changes Musculoskeletal: absent: Back Pain, Neck Pain Neurological: absent: Headache, Dizziness Physical Exam Vital Signs Reviewed: Yes Vital Signs Temp Pulse Resp BP Pulse Ox 06/14/17 16:07 66 18 99/57 L 99 06/14/17 14:49 51 L 18 128/62 99 06/14/17 12:30 50 L 18 134/58 L 98 06/14/17 10:28 55 L 18 169/67 H 99 06/14/17 07:45 97.2 F L 51 L 18 145/76 97 Temperature: Hypothermic Blood Pressure: Normal Pulse: Bradycardic Respiratory Rate: Normal Appearance: Positive for: Non-Toxic, Other (Pateint is morbidly obese.) Pain Distress: None Mental Status: Positive for: Alert and Oriented X 3 - Systems Exam Head: Present: Atraumatic, Normocephalic Pupils: Present: PERRL Extroacular Muscles: Present: EOMI Conjunctiva: Present: Normal Mouth: Present: Moist Mucous Membranes Neck: Present: Normal Range of Motion Respiratory/Chest: Present: Clear to Auscultation, Good Air Exchange. No: Respiratory Distress, Accessory Muscle Use Cardiovascular: Present: Regular Rate and Rhythm, Normal S1, S2. No: Murmurs Abdomen: Present: Normal Bowel Sounds. No: Tenderness, Distention, Peritoneal Signs Back: Present: Normal Inspection Upper Extremity: Present: Normal Inspection. No: Cyanosis, Edema Lower Extremity: Present: Normal Inspection. No: Edema Neurological: Present: GCS=15, CN II-XII Intact, Speech Normal Skin: Present: Warm, Dry, Normal Color. No: Rashes Psychiatric: Present: Alert, Oriented x 3, Normal Insight, Normal Concentration Medical Decision Making ED Course and Treatment: 06/14/17 07:50 Impression: A 51 year old male presents to the emergency department for a complaint of chest pain that began this morning. Plan: -- EKG -- Chest X-ray -- Labs -- Aspirin and Nitrostat -- Reassess and disposition Prior Visits: Notes and results from previous visits were reviewed. Patient was last seen in the emergency department on 05/21/17. The patient was seen in the emergency department for a complaint of chest pain. The patient was hospitalized. Progress Notes: 06/14/17 07:55: Beta koby could not be given because patient's pulse was too slow (46 BPM). EK06/14/17 07:33 Ordered, reviewed, and independently interpreted the EKG. Rate : 46 BPM Rhythm : Sinus Bradycardia Interpretation : Septal infarct, age undetermined. ST and T wave abnormality, consider lateral ischemia. Comparison : EKG for comparison on 05/22/17. T wave changes present. 06/14/17 07:59: Previous catheterization report for April 2017 reviewed: 3 vessel disease, however, there was no option for stenting. Decided to treat him with medical therapy. CHEST X-RAY Dictator : Claus Kapoor MD Report Date : 06/14/2017 08:37:07 IMPRESSION: No active disease. EK06/14/17 14:11 Ordered, reviewed, and independently interpreted the EKG. Rate : 53 BPM Rhythm : Sinus Bradycardia Interpretation : Septal infarct, age undetermined. ST and T wave abnormality, consider lateral ischemia. Comparison : No changes from EKG on 06/14/17. - Critical Care Narrative Critical Care (Text): 06/14/17 15:41 NUC MED VQ SCAN LOW PROB, TWO EKG AND TWO TROPONIN NEG DC HOME ATYPICAL CHEST PAIN FOLLOW UP WITH PMD - Lab Interpretations Lab Results: 06/14/17 07:50 06/14/17 07:50 Lab Results 06/14/17 14:06: Lactate Dehydrogenase 328 L, Total Creatine Kinase 80, Troponin I 0.05 06/14/17 07:50: Sodium 146, Potassium 4.6, Chloride 106, Carbon Dioxide 26, Anion Gap 18, BUN 18, Creatinine 2.3 H, Est GFR ( Amer) 36, Est GFR (Non- Af Amer) 30, Random Glucose 111 H, Calcium 9.4, Total Bilirubin 0.4, AST 28, ALT 42, Alkaline Phosphatase 58, Lactate Dehydrogenase 364, Total Creatine Kinase 85, Troponin I 0.05 D, Total Protein 8.2, Albumin 4.0, Globulin 4.2, Albumin/Globulin Ratio 1.0 L 06/14/17 07:50: PT 12.3, INR 1.07, D-Dimer, Quantitative 309 H 06/14/17 07:50: WBC 7.8, RBC 4.38, Hgb 13.0 L, Hct 40.4 L, MCV 92.2, MCH 29.7, MCHC 32.2, RDW 12.9, Plt Count 210, MPV 9.5, Gran % 55.5, Lymph % (Auto) 29.5, Miner % (Auto) 9.7 H, Eos % (Auto) 5.0, Baso % (Auto) 0.3, Gran # 4.34, Lymph # 2.3, Miner # 0.8 H, Eos # 0.4, Baso # 0.02 I have reviewed the lab results: Yes - RAD Interpretation Radiology Orders: 06/14/17 07:37 CHEST PORTABLE [RAD] Stat 06/14/17 10:56 LUNG PERF & VENT SCAN [NM] Stat - EKG Interpretation Interpreted by ED Physician: Yes Type: 12 lead EKG - Medication Orders Current Medication Orders: Discontinued Medications Aspirin (Aspirin Chewable) 324 mg PO STAT STA Stop: 06/14/17 07:38 Last Admin: 06/14/17 08:00 Dose: 243 mg Comments: Pt took 81mg prior to arrival. aware. Nitroglycerin (Nitrostat Sl Tab) 0.4 mg SL STAT STA Stop: 06/14/17 07:38 Last Admin: 06/14/17 08:01 Dose: 0.4 mg - Scribe Statement The provider has reviewed the documentation as recorded by the Alix Ma Provider Scribe Attestation: All medical record entries made by the Alix were at my direction and personally dictated by me. I have reviewed the chart and agree that the record accurately reflects my personal performance of the history, physical exam, medical decision making, and the department course for this patient. I have also personally directed, reviewed, and agree with the discharge instructions and disposition. Disposition/Present on Arrival - Present on Arrival Any Indicators Present on Arrival: No History of DVT/PE: No History of Uncontrolled Diabetes: No Urinary Catheter: No History of Decub. Ulcer: No History Surgical Site Infection Following: None - Disposition Have Diagnosis and Disposition been Completed?: Yes Diagnosis: Atypical chest pain Disposition: HOME/ ROUTINE Disposition Time: 15:43 Patient Plan: Discharge Patient Problems: Current Active Problems Problem Status Onset Atypical chest pain Acute Condition: GOOD Discharge Instructions (ExitCare): Chest Pain (ED) Additional Instructions: Cristo- Your Lung Scan for a blood clot was negative and your repeat cardiac enzymes were negative as well. Follow up with your doctor next week. Return to us if problems Best- Dr. Gustavo Norwood Forms: [facility] (Surinamese), WORK NOTE
[2017-06-14 08:05] LABS: BASO # 0.02 K/mm3 (0.0-2.0); BASO % 0.3 % (0.0-3.0); EOS # 0.4 (0.0-0.7); GRAN # 4.34 (1.4-6.5); GRAN % 55.5 % (50.0-68.0); LYMPH # 2.3 (1.2-3.4); LYMPH % 29.5 % (22.0-35.0); MEAN CELL VOLUME 92.2 fl (80.0-105.0); MEAN CORPUSCULAR HEMOGLOBIN 29.7 pg (25.0-35.0); MEAN CORPUSCULAR HGB CONC 32.2 g/dl (31.0-37.0); MEAN PLATELET VOLUME 9.5 fl (7.0-11.0); MONO # 0.8 (0.1-0.6); MONO % 9.7 % (1.0-6.0); RBC 4.38 10^6/uL (3.5-6.1); RED CELL DISTRIBUTION WIDTH 12.9 % (11.5-14.5); WHITE BLOOD COUNT 7.8 10^3/ul (4.5-11.0)
[2017-06-14 08:16] LABS: INR 1.07 (0.93-1.08); PROTHROMBIN TIME 12.3 SECONDS (9.4-12.5)
[2017-06-14 08:19] LABS: CALCIUM 9.4 mg/dL (8.4-10.5)
[2017-06-14 08:30] LABS: TROPONIN I 0.05 ng/mL
--- NOTE | 2017-06-14 08:39 | RAD ---
HISTORY: Chest Pain COMPARISON: 05/21/2017 FINDINGS: LUNGS: No active pulmonary disease. PLEURA: No significant pleural effusion identified, no pneumothorax apparent. CARDIOVASCULAR: Mild cardiomegaly OSSEOUS STRUCTURES: No significant abnormalities. VISUALIZED UPPER ABDOMEN: Normal. OTHER FINDINGS: None. IMPRESSION: No active disease.
[2017-06-14] MEDS ORDERED: Iodixanol 320 MG/ML 100 ML BOTTLE IV ONE (10:38)
[2017-06-14 14:35] LABS: TROPONIN I 0.05 ng/mL
[2017-06-14 14:50] VITALS: O2SAT 99
--- NOTE | 2017-06-14 15:00 | NM ---
COMPARISON: 2017. TECHNIQUE: 37.0 mCi technetium 99-m DTPA aerosol. 4.3 mCI technetium 99-m MAA administered intravenously. FINDINGS: VENTILATION COMPONENT: Normal.Retention of radionuclide in the tracheobronchial tree and ingestion of radionuclide in the stomach, incidental findings PERFUSION COMPONENT: Heterogeneous distribution of radionuclide. No geographic, segmental, lobar abnormalities apparent on the present examination. IMPRESSION: Low probability ventilation perfusion scan for pulmonary embolism.
[2017-06-14 16:08] VITALS: BP 99/57; PULSE 66
--- NOTE | 2017-06-14 17:54 | CARD ---
APPROVED REPORT EKG Measurement Heart [id number] <Conclusion> Sinus bradycardia Septal infarct, age undetermined ST & T wave abnormality, consider lateral ischemia Abnormal ECG
--- NOTE | 2017-06-15 20:43 | CARD ---
APPROVED REPORT EKG Measurement Heart [id number] <Conclusion> Sinus bradycardia Septal infarct, age undetermined T wave abnormality, consider lateral ischemia Abnormal ECG
== END 2017-06-14 16:31 | disposition home or self-care (01) ==
LOC: ED 07:28
DX: R07.89 Other chest pain (principal); I10 Essential (primary) hypertension; I25.10 Atherosclerotic heart disease of native coronary artery without angina pectoris

== ENCOUNTER 2017-07-04 07:36 | Emergency (ER) | payer BC ==
[2017-07-04 07:50] VITALS: TEMP 98.4
--- NOTE | 2017-07-04 08:09 | ED PDOC ---
Arrival/HPI - General Chief Complaint: Chest Pain Time Seen by Provider: 07/04/17 07:47 Historian: Patient - History of Present Illness Narrative History of Present Illness (Text): 07/04/17 08:00 A 51 year old male, whose past medical history includes CAD s/p cardiac catheterization, hypertension, hyperlipidemia, and left kidney stone, presents to the emergency department complaining of chest pain. Patient was recently discharged 06/02/2017 for evaluation of chest pain. Last here on 06/14/2017 and had VQ test done, showing low probability of pulmonary embolism. Patient denies any shortness of breath or any other complaints. 04/25/2017 cardiac catheterization showed diffused small posterior lateral branch lesion and severe distal right CAD. PMD: Dr. Jordan Drawer Waxer: Dr. Mckeon Education Diagnostician: Dr. Navarro Business Dean: Dr. Wells Past Medical History - Provider Review Nursing Documentation Reviewed: Yes - Infectious Disease Hx of Infectious Diseases: None - Tetanus Immunization Tetanus Immunization: Unknown - Past Medical History Past Medical History: No Previous - Cardiac Hx Cardiac Disorders: Yes Hx Hypertension: Yes - Pulmonary Hx Respiratory Disorders: No - Neurological Hx Neurological Disorder: No - HEENT Hx HEENT Disorder: (glasses/nearsighted and farsighted) Other/Comment: left eye sx age 11 pt stated "There was a white film over my eye causing impaired vision." Vision ok now - Renal Hx Kidney Stones: Yes (left lithotripsy 11 yrs ago) Other/Comment: pt recently dx with another left kidney stone - Endocrine/Metabolic Hx Endocrine Disorders: No - Hematological/Oncological Hx Blood Disorders: No - Integumentary Hx Dermatological Disorder: No - Musculoskeletal/Rheumatological Hx Falls: No - Gastrointestinal Hx Gastrointestinal Disorders: Yes (obese) - Genitourinary/Gynecological Hx Genitourinary Disorders: No - Psychiatric Hx Psychophysiologic Disorder: No Hx Substance Use: No - Past Surgical History Past Surgical History: No Previous - Surgical History Other/Comment: Left eye - Anesthesia Hx Anesthesia: Yes Hx Anesthesia Reactions: No - Suicidal Assessment Feels Threatened In Home Enviroment: No Family/Social History - Physician Review Nursing Documentation Reviewed: Yes Family/Social History: No Known Family HX Smoking Status: Never Smoked Hx Alcohol Use: No Hx Substance Use: No Hx Substance Use Treatment: No Allergies/Home Meds Allergies/Adverse Reactions: Allergies No Known Allergies Allergy (Verified 06/14/17 07:33) Home Medications: Home Meds Medication Instructions Recorded Confirmed Atorvastatin [Lipitor] 20 mg PO DAILY 04/26/17 06/14/17 Metoprolol Succinate [Toprol Xl] 25 mg PO DAILY 04/26/17 06/14/17 amLODIPine [Norvasc] 10 mg PO DAILY 04/26/17 06/14/17 hydrALAZINE [hydralazine 25 mg PO BID 04/26/17 06/14/17 Hydrochloride] Aspirin [Aspirin Chewable] 1 tab PO DAILY 05/21/17 06/14/17 Review of Systems - Physician Review All systems were reviewed & negative as marked: Yes - Review of Systems Respiratory: absent: SOB Cardiovascular: Chest Pain Physical Exam Vital Signs Reviewed: Yes Vital Signs Temp Pulse Resp BP Pulse Ox 07/04/17 07:48 98.4 F 64 17 160/97 H 98 Temperature: Afebrile Blood Pressure: Hypertensive Pulse: Regular Respiratory Rate: Normal Appearance: Positive for: Other (obese) Pain Distress: None Mental Status: Positive for: Alert and Oriented X 3 - Systems Exam Head: Present: Atraumatic, Normocephalic Pupils: Present: PERRL Extroacular Muscles: Present: EOMI Conjunctiva: Present: Normal Mouth: Present: Dry Neck: Present: Normal Range of Motion Respiratory/Chest: Present: Clear to Auscultation, Good Air Exchange. No: Respiratory Distress, Accessory Muscle Use Cardiovascular: Present: Regular Rate and Rhythm, Normal S1, S2. No: Murmurs Abdomen: Present: Normal Bowel Sounds. No: Tenderness, Distention, Peritoneal Signs Back: Present: Normal Inspection Upper Extremity: Present: Normal Inspection. No: Cyanosis, Edema Lower Extremity: Present: Normal Inspection. No: Edema Neurological: Present: GCS=15, CN II-XII Intact, Speech Normal Skin: Present: Warm, Dry, Normal Color. No: Rashes Psychiatric: Present: Alert, Oriented x 3, Normal Insight, Normal Concentration Medical Decision Making ED Course and Treatment: 07/04/17 08:05 Impression: 51 year old male with chest pain. Physical exam shows patient is obese and has dry mucous membranes; otherwise examination is unremarkable. Plan: -- EKG -- Chest X-ray -- Labs -- Aspirin -- Urinalysis -- Nasal Cannula O2 -- Reassess and disposition Prior Visits: Notes and results from previous visits were reviewed. Patient was last seen in the emergency department on 06/14/2017 for chest pain. Patient was d/c home. Progress Notes: EKG: Ordered, reviewed, and independently interpreted the EKG. Rate : 52 BPM Rhythm : Sinus bradycardia with sinus arrythmias Interpretation : ST-elevations v1-v3. Comparison : 06/14/2017 EKG showed T-wave (1, 2 AVL) v4-v6. 07/04/17 10:51 given cArdiac risk factors pt to be admitted for chest pain evaluaiton to r/o acs. Dr. Tr riveraoaced on consult. Pt hasremained cp free past initial 15-20 mins initially. - Lab Interpretations Lab Results: 07/04/17 08:30 07/04/17 08:30 Lab Results 07/04/17 08:30: Sodium 143, Potassium 4.4, Chloride 107, Carbon Dioxide 25, Anion Gap 15, BUN 23 H, Creatinine 2.3 H, Est GFR ( Amer) 36, Est GFR ( Non-Af Amer) 30, Random Glucose 108, Calcium 9.7, Magnesium 1.7, Total Bilirubin 0.4, AST 23, ALT 47, Alkaline Phosphatase 63, Lactate Dehydrogenase 388, Total Creatine Kinase 77, Troponin I 0.05, NT-Pro-B Natriuret Pep 180, Total Protein 8.4 H, Albumin 4.3, Globulin 4.1, Albumin/Globulin Ratio 1.1 07/04/17 08:30: PT 11.7, INR 1.02, APTT 33.0 07/04/17 08:30: WBC 7.2, RBC 4.59, Hgb 13.8 L, Hct 42.1, MCV 91.7, MCH 30.1, MCHC 32.8, RDW 13.1, Plt Count 214, MPV 9.7, Gran % 59.2, Lymph % (Auto) 27.8, Bennett % (Auto) 8.7 H, Eos % (Auto) 3.9, Baso % (Auto) 0.4, Gran # 4.27, Lymph # ( Auto) 2.0, Bennett # (Auto) 0.6, Eos # (Auto) 0.3, Baso # (Auto) 0.03 - RAD Interpretation Radiology Orders: 07/04/17 07:48 CHEST PORTABLE [RAD] Stat - Medication Orders Current Medication Orders: Discontinued Medications Aspirin (Ecotrin) 81 mg PO STAT STA Stop: 07/04/17 07:49 Last Admin: 07/04/17 08:49 Dose: Aspirin (Ecotrin) 162 mg PO STAT STA Stop: 07/04/17 08:14 Last Admin: 07/04/17 08:51 Dose: 162 mg - Scribe Statement The provider has reviewed the documentation as recorded by the Alix Jean-Baptiste Provider Scribe Attestation: All medical record entries made by the Alix were at my direction and personally dictated by me. I have reviewed the chart and agree that the record accurately reflects my personal performance of the history, physical exam, medical decision making, and the department course for this patient. I have also personally directed, reviewed, and agree with the discharge instructions and disposition. Disposition/Present on Arrival - Present on Arrival Any Indicators Present on Arrival: No History of DVT/PE: No History of Uncontrolled Diabetes: No Urinary Catheter: No History of Decub. Ulcer: No History Surgical Site Infection Following: None - Disposition Have Diagnosis and Disposition been Completed?: Yes Diagnosis: Chest pain Disposition: HOSPITALIZED Disposition Time: 10:52 Patient Plan: Admission Condition: FAIR Discharge Instructions (ExitCare): Chest Pain (ED) Referrals: Sofi Jordan MD [Primary Care Provider] - Follow up with primary Forms: [employer] (Nepali)
[2017-07-04 08:44] LABS: BASO # 0.03 K/mm3 (0.0-2.0); BASO % 0.4 % (0.0-3.0); EOS # 0.3 (0.0-0.7); EOS % 3.9 % (1.5-5.0); GRAN # 4.27 (1.4-6.5); GRAN % 59.2 % (50.0-68.0); HEMOGLOBIN 13.8 g/dL (14.0-18.0); LYMPH % 27.8 % (22.0-35.0); MEAN CELL VOLUME 91.7 fl (80.0-105.0); MEAN CORPUSCULAR HEMOGLOBIN 30.1 pg (25.0-35.0); MEAN CORPUSCULAR HGB CONC 32.8 g/dl (31.0-37.0); MEAN PLATELET VOLUME 9.7 fl (7.0-11.0); MONO # 0.6 (0.1-0.6); MONO % 8.7 % (1.0-6.0); RBC 4.59 10^6/uL (3.5-6.1); RED CELL DISTRIBUTION WIDTH 13.1 % (11.5-14.5); WHITE BLOOD COUNT 7.2 10^3/ul (4.5-11.0)
[2017-07-04 08:57] LABS: INR 1.02 (0.93-1.08); PROTHROMBIN TIME 11.7 SECONDS (9.4-12.5)
[2017-07-04 09:05] LABS: ALB/GLOB RATIO 1.1 (1.1-1.8); ALBUMIN 4.3 g/dL (3.0-4.8); CALCIUM 9.7 mg/dL (8.4-10.5); MAGNESIUM 1.7 mg/dL (1.7-2.2)
[2017-07-04 09:13] LABS: TROPONIN I 0.05 ng/mL
--- NOTE | 2017-07-04 10:32 | RAD ---
HISTORY: Routine COMPARISON: 06/14/2017. FINDINGS: LUNGS: The lungs are well inflated and clear. PLEURA: No significant pleural effusion identified, no pneumothorax apparent. CARDIOVASCULAR: Normal. OSSEOUS STRUCTURES: No significant abnormalities. VISUALIZED UPPER ABDOMEN: Normal. OTHER FINDINGS: None. IMPRESSION: No active pulmonary disease.
[2017-07-04 12:52] VITALS: BP 139/89; PULSE 59; RESP 12; O2SAT 100
--- NOTE | 2017-07-04 12:54 | CARD ---
APPROVED REPORT EKG Measurement Heart [id number] <Conclusion> Sinus bradycardia with sinus arrhythmia Anteroseptal infarct, age Probably Old. T wave abnormality, consider lateral ischemia Abnormal ECG
--- NOTE | 2017-07-05 09:52 | HP ---
CHIEF COMPLAINT: Shortness of breath. HISTORY OF PRESENT ILLNESS: Mr. Nav Lemons is a 51-year-old male with past medical history of coronary artery disease, status post cardiac catheterization, hypertension, hypercholesterolemia, left kidney stone, came to the emergency room department complaining of chest pain. Patient was recently discharged on 06/02/2017 for evaluation of the chest pain and patient had multiple ER visits and hospitalization for chest pain. 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 Tr Hogue. Patient had V/Q test done showing low probability of pulmonary embolism. Patient denies any shortness of breath. No nausea, vomiting, or diarrhea. Patient had cardiac catheterization on 04/25/2017, it showed diffuse small posterolateral branch lesion and severe distal right coronary artery disease. No fever, no chills. No hematuria or hematochezia. No swelling of the legs. No headache or dizziness. PAST MEDICAL HISTORY: As above. Hypertension; left eye surgery age 11 years, "was a white film over my eye causing impaired vision and vision okay now," left lithotripsy 11 years ago. Patient is obese, rule out obstructive sleep apnea syndrome. FAMILY HISTORY: Father and mother noncontributory. HABITS: Never smoked. No drugs. No ethanol. ALLERGIES: PATIENT IS NOT ALLERGIC WITH ANY MEDICATIONS. HOME MEDICATIONS: Lipitor, Toprol, Norvasc, hydralazine, and aspirin. REVIEW OF SYSTEMS: The patient seen and examined on the bedside in the ER. Looks comfortable. No nausea, vomiting, or diarrhea. No hematuria or hematochezia. No swelling of the legs. No chest pain. No palpitations. No headache. No dizziness, but complaining about chest pain sometime and shortness of breath. No fever, no chills. PHYSICAL EXAMINATION: VITAL SIGNS: Temperature 98.4, pulse 64, respiratory rate 17, blood pressure 160/97, and pulse oximetry 98. HEENT: Head is normocephalic and atraumatic. Eyes; PERRLA. Extraocular movements are intact. Conjunctivae clear. Nose patent. Mucous membrane moist. NECK: Supple. No carotid bruit or thyromegaly. CHEST: Bilaterally symmetrical. HEART: S1 and S2 positive. LUNGS: Clear to auscultation. ABDOMEN: Soft. Bowel sounds present. No organomegaly. EXTREMITIES: No edema. No cyanosis. NEUROLOGIC: The patient is awake and alert. Moving all 4 extremities. No focal deficits. LABORATORY DATA: White blood cell 7.2, hemoglobin 13.8, hematocrit 42.1, and platelets of 214. Sodium 143, potassium 4.4, BUN 23, creatinine of 2.3, and glucose of 108. ASSESSMENT AND PLAN: Mr. Nav Lemons is a 51-year-old male with anemia, renal insufficiency, came with chest pain, chronic obstructive pulmonary disease exacerbation, obesity, rule out obstructive sleep apnea syndrome, coronary artery disease, status post cardiac catheterization multiple times, hypertension, hypercholesterolemia, left kidney stones, history of eye problems. We admitted the patient for cardiology consult with Dr. Armando. Repeat labs. Cardiac enzymes ordered. We will follow up. Sofi Jordan MD
[2017-07-05] MEDS ORDERED: Metoprolol Succinate 25 mg XL Tab PO SCH (10:00)
== END 2017-07-04 13:50 | disposition left against medical advice (07) ==
LOC: ED 07:36 → UNDOADMOB 10:44 → ERH 10:44 → UNDODISOB 07-05 09:19
DX: R07.9 Chest pain, unspecified (principal); I25.10 Atherosclerotic heart disease of native coronary artery without angina pectoris; I10 Essential (primary) hypertension; E78.5 Hyperlipidemia, unspecified

== ENCOUNTER 2017-07-19 07:55 | Observation (INO) | payer BC ==
--- NOTE | 2017-07-19 08:25 | ED PDOC ---
Arrival/HPI - General Chief Complaint: Chest Pain Time Seen by Provider: 07/19/17 07:57 Historian: Patient - History of Present Illness Narrative History of Present Illness (Text): 07/19/17 08:15 Cristo Chopra is a 52 year old male, whose past medical history includes hypertension, who presents to the emergency department complaining of chest pain since early this morning. Patient reports this past weeks he has been feeling intermittent dizziness and "feeling warm on and off". He states waking up this morning and when putting on his shoes, developed chest pain substernally. Not pleuritic. Associated with dizziness. Denies shortness of breath.. He notes feeling like this intermittently for one week and admits to not being compliant with medication due to abdominal discomfort. Patients explains he went to [facility] one week ago for abdominal pain and was diagnosed with a kidney stone after finding hematuria in urinalysis. 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 Patient denies shortness of breath, nausea, vomiting, or other complaints. Patient was last seen at [facility] on 07/04/17 for chest pain. Time/Duration: 1-3 hours Symptom Onset: Gradual Symptom Course: Unchanged Activities at Onset: Light Context: Home Past Medical History - Provider Review Nursing Documentation Reviewed: Yes - Infectious Disease Hx of Infectious Diseases: None - Tetanus Immunization Tetanus Immunization: Unknown - Past Medical History Past Medical History: No Previous - Cardiac Hx Cardiac Disorders: Yes Hx Hypertension: Yes - Pulmonary Hx Respiratory Disorders: No - Neurological Hx Neurological Disorder: No - HEENT Hx HEENT Disorder: (glasses/nearsighted and farsighted) Other/Comment: left eye sx age 11 pt stated "There was a white film over my eye causing impaired vision." Vision ok now - Renal Hx Kidney Stones: Yes (left lithotripsy 11 yrs ago) Other/Comment: pt recently dx with another left kidney stone - Endocrine/Metabolic Hx Endocrine Disorders: No - Hematological/Oncological Hx Blood Disorders: No - Integumentary Hx Dermatological Disorder: No - Musculoskeletal/Rheumatological Hx Falls: No - Gastrointestinal Hx Gastrointestinal Disorders: Yes (obese) - Genitourinary/Gynecological Hx Genitourinary Disorders: No - Psychiatric Hx Psychophysiologic Disorder: No Hx Substance Use: No - Past Surgical History Past Surgical History: No Previous - Surgical History Other/Comment: Left eye - Anesthesia Hx Anesthesia: Yes Hx Anesthesia Reactions: No - Suicidal Assessment Feels Threatened In Home Enviroment: No Family/Social History - Physician Review Nursing Documentation Reviewed: Yes Family/Social History: Unknown Family HX Smoking Status: Never Smoked Hx Alcohol Use: No Hx Substance Use: No Hx Substance Use Treatment: No Allergies/Home Meds Allergies/Adverse Reactions: Allergies No Known Allergies Allergy (Verified 07/19/17 08:05) Home Medications: Home Meds Medication Instructions Recorded Confirmed Atorvastatin [Lipitor] 20 mg PO DAILY 04/26/17 07/19/17 Metoprolol Succinate [Toprol Xl] 25 mg PO DAILY 04/26/17 07/19/17 amLODIPine [Norvasc] 10 mg PO DAILY 04/26/17 07/19/17 hydrALAZINE [hydralazine 25 mg PO BID 04/26/17 07/19/17 Hydrochloride] Aspirin [Aspirin Chewable] 1 tab PO DAILY 05/21/17 07/19/17 Review of Systems - Review of Systems Constitutional: Fatigue, Fevers Eyes: absent: Eye Pain ENT: absent: Hearing Changes, Sore Throat Respiratory: absent: SOB, Cough Cardiovascular: Chest Pain. absent: Palpitations, JUSTICE Gastrointestinal: Abdominal Pain. absent: Diarrhea, Vomiting Genitourinary Male: Hematuria Musculoskeletal: Back Pain Skin: absent: Rash Neurological: Dizziness. absent: Headache, Focal Weakness Endocrine: Diaphoresis Hemo/Lymphatic: absent: Adenopathy, Easy Bleeding Psychiatric: absent: Depression Physical Exam - Physical Exam Narrative Physical Exam (Text): 07/19/17 Head: Atraumatic. Normocephalic. Eyes: PERRL. EOMI. Conjunctivae are not pale. ENT: Mucous membranes are moist and intact. Oropharynx is clear and symmetric. Neck: Supple. Full ROM. No JVD. No lymphadenopathy. Cardiovascular: Regular rate. Regular rhythm. Systolic murmur noted. Distal pulses intact. Pulmonary/Chest: No evidence of respiratory distress. Clear to auscultation bilaterally. No wheezing, rales or rhonchi. Abdominal: Distended but soft. There is no tenderness. No rebound, guarding, or rigidity. No organomegaly. Good bowel sounds. Back: Mild left cva tenderness. No midline pain or edema. Extremities: Nonpitting edema. No cyanosis. No clubbing. Full range of motion in all extremities. No calf tenderness. Skin: Skin is warm and dry. No petechiae. No purpura. Neurological: Alert, awake, and oriented. Motor and sensory exam intact. Psychiatric: Good eye contact. Normal interaction, affect, and behavior. Vital Signs Reviewed: Yes Vital Signs Temp Pulse Resp BP Pulse Ox 07/19/17 12:39 56 L 17 156/94 H 99 07/19/17 10:16 50 L 16 159/95 H 98 07/19/17 08:10 98.0 F 55 L 17 179/66 H 98 Temperature: Afebrile Blood Pressure: Hypertensive Pulse: Bradycardic Respiratory Rate: Normal Appearance: Positive for: Well-Appearing, Non-Toxic, Comfortable Pain Distress: Mild Mental Status: Positive for: Alert and Oriented X 3 Medical Decision Making ED Course and Treatment: 07/19/17 Impression: 52 year old male with unremarkable exam complaining of chest pain. Differential Diagnosis included but are not limited to: acs, cad, renal colic Plan: -- EKG -- Chest X-ray -- CT abdomen and pelvis -- Labs -- Urinalysis -- Reassess and disposition Prior Visits: Notes and results from previous visits were reviewed. Patient was last seen in the emergency department on 07/04/17 for chest pain. Progress Notes: Patient's prior visits reviewed. Patient's most recent cardiac cath with Dr. Ortiz reviewed, at that time medical management recommended. Initial EKG reveals sinus bradycardia, although BP stable and not hypotensive or dizzy. Patient reportedly not taking his medication for past several weeks due to "upset stomach". He did take aspirin prior to arrival. He reports a chest discomfort this am, but also a left sided flank pain intermittently. Pulses are equal in both upper and lower extremities. Due to hx of kidney stones and flank pain, ct abdomen ordered after review with patient. 07/19/17 10:00 CT abdomen and Pelvis: Creator : Jannette Barrett MD FINDINGS: LOWER THORAX:The lung bases are clear. LIVER:The liver is normal in size. No gross lesion or ductal dilatation. GALLBLADDER AND BILE DUCTS:There are no calcified gallstones. PANCREAS:Normal in size. No gross lesion or ductal dilatation. SPLEEN:Normal in size and appearance. ADRENALS:No discrete nodule. KIDNEYS AND URETERS:Both kidneys are normal in size. No right hydronephrosis or nephrolithiasis. There is an approximately 3.0 cm staghorn calculus in the left kidney. There are also two discrete 5 mm nonobstructing stones in the lower pole of the left kidney. There is a 4.8 x 3.2 cm simple cyst in the interpolar region of the left kidney. The ureters are not dilated. VASCULATURE:No aortic aneurysm. BOWEL:The small bowel loops are normal in caliber. There is left colonic diverticulosis without CT evidence for acute diverticulitis. No bowel dilatation or obstruction. APPENDIX:Unremarkable. Normal appendix. PERITONEUM:There is a fatty mass with central high attenuation and stranding of fat in the right mid abdomen. No free fluid. No free air. LYMPH NODES:No enlarged lymph nodes. BLADDER:Grossly normal in appearance. REPRODUCTIVE:The prostate gland is normal in size. BONES:No acute fracture. Within normal limits for the patient's age. OTHER FINDINGS:There is a small fat containing umbilical hernia. . IMPRESSION: 1. Large staghorn stone in the interpolar region of the left kidney and 2 subcentimeter nonobstructing stones in the lower pole of the left kidney. No obstructive uropathy. 2. Suspect epiploic appendagitis in the right mid abdomen. 3. Left colonic diverticulosis without CT evidence for acute diverticulitis. Patient has no abdominal pain currently in ED, but will recommend serial exams due to CT findings. CT findings reviewed with patient in laymens' terms. 07/19/17 10:30 Chest X-ray: Creator : Jannette Barrett MD COMPARISON: 07/04/2017. FINDINGS: LUNGS: The lungs are well inflated and clear. PLEURA: No pneumothorax or pleural fluid seen. CARDIOVASCULAR:Normal. OSSEOUS STRUCTURES: No significant abnormalities. VISUALIZED UPPER ABDOMEN: Normal. OTHER FINDINGS: None. IMPRESSION: No active pulmonary disease. Patient currently denies chest pain, although has had persistent intermittent chest pain for several weeks. I specifically asked patient if he has been following up with a motion picture commentator. He requests "I want a different motion picture commentator then before". He states his will call to specify which motion picture commentator he wishes to be consulted. While in ED, I discussed patient request and current symptoms with PMD Dr. Jordan, who requests Dr. Winston/Shannen currently. Labs reviewed with patient, treatment plan reviewed with patient. Back pain currently controlled, will consult his urologist due to stacatie noted. I discussed plan in laymen's terms and he is in agreement. 07/19/17 13:11 - Lab Interpretations Lab Results: 07/19/17 09:00 07/19/17 09:00 Lab Results 07/19/17 09:00: Sodium 144, Potassium 4.3, Chloride 107, Carbon Dioxide 25, Anion Gap 16, BUN 21, Creatinine 2.2 H, Est GFR ( Amer) 38, Est GFR (Non- Af Amer) 31, Random Glucose 108, Calcium 9.5, Total Bilirubin 0.3, AST 34, ALT 34, Alkaline Phosphatase 53, Lactate Dehydrogenase 383, Total Creatine Kinase 114, Troponin I 0.05, Total Protein 7.8, Albumin 3.9, Globulin 3.9, Albumin/ Globulin Ratio 1.0 L 07/19/17 09:00: PT 12.7 H, INR 1.10 H, APTT 33.1 07/19/17 09:00: WBC 5.8, RBC 4.33, Hgb 12.8 L, Hct 39.3 L, MCV 90.8, MCH 29.6, MCHC 32.6, RDW 12.9, Plt Count 212, MPV 9.3, Gran % 56.7, Lymph % (Auto) 27.4, Citrus % (Auto) 12.8 H, Eos % (Auto) 2.9, Baso % (Auto) 0.2, Gran # 3.29, Lymph # (Auto) 1.6, Citrus # (Auto) 0.7 H, Eos # (Auto) 0.2, Baso # (Auto) 0.01 I have reviewed the lab results: Yes - RAD Interpretation Radiology Orders: 07/19/17 08:22 ABD & PELVIS W/O PO OR IV CONT [CT] Stat CHEST ONE VIEW [RAD] Stat Consular Officer: Radiologist - EKG Interpretation EKG Interpretation (Text): 07/19/17 13:09 EKG at 0810 marked sinus bradycardia, anteroseptal infarct, age undetermined, t wave abnormality Interpreted by ED Physician: Yes Type: 12 lead EKG Comparison: Similar to previous EKG - Scribe Statement The provider has reviewed the documentation as recorded by the Alix Ferris Provider Scribe Attestation: All medical record entries made by the Scribe were at my direction and personally dictated by me. I have reviewed the chart and agree that the record accurately reflects my personal performance of the history, physical exam, medical decision making, and the department course for this patient. I have also personally directed, reviewed, and agree with the discharge instructions and disposition. Disposition/Present on Arrival - Present on Arrival Any Indicators Present on Arrival: No History of DVT/PE: No History of Uncontrolled Diabetes: No Urinary Catheter: No History of Decub. Ulcer: No History Surgical Site Infection Following: None - Disposition Have Diagnosis and Disposition been Completed?: Yes Diagnosis: Chest pain, Left flank pain, Staghorn calculus Disposition: HOSPITALIZED Disposition Time: 11:00 Patient Plan: Admission, Telemetry Patient Problems: Current Active Problems Problem Status Onset Chest pain Acute Left flank pain Acute Staghorn calculus Chronic Condition: FAIR
[2017-07-19 09:13] LABS: BASO # 0.01 K/mm3 (0.0-2.0); BASO % 0.2 % (0.0-3.0); EOS # 0.2 (0.0-0.7); EOS % 2.9 % (1.5-5.0); GRAN # 3.29 (1.4-6.5); GRAN % 56.7 % (50.0-68.0); HEMOGLOBIN 12.8 g/dL (14.0-18.0); LYMPH # 1.6 (1.2-3.4); LYMPH % 27.4 % (22.0-35.0); MEAN CELL VOLUME 90.8 fl (80.0-105.0); MEAN CORPUSCULAR HEMOGLOBIN 29.6 pg (25.0-35.0); MEAN CORPUSCULAR HGB CONC 32.6 g/dl (31.0-37.0); MEAN PLATELET VOLUME 9.3 fl (7.0-11.0); MONO # 0.7 (0.1-0.6); MONO % 12.8 % (1.0-6.0); RBC 4.33 10^6/uL (3.5-6.1); RED CELL DISTRIBUTION WIDTH 12.9 % (11.5-14.5); WHITE BLOOD COUNT 5.8 10^3/ul (4.5-11.0)
--- NOTE | 2017-07-19 09:24 | RAD ---
PROCEDURE: CHEST RADIOGRAPH, 1 VIEW HISTORY: Chest pain COMPARISON: 07/04/2017. FINDINGS: LUNGS: The lungs are well inflated and clear. PLEURA: No pneumothorax or pleural fluid seen. CARDIOVASCULAR: Normal. OSSEOUS STRUCTURES: No significant abnormalities. VISUALIZED UPPER ABDOMEN: Normal. OTHER FINDINGS: None. IMPRESSION: No active pulmonary disease.
[2017-07-19 09:28] LABS: ALBUMIN 3.9 g/dL (3.0-4.8); CALCIUM 9.5 mg/dL (8.4-10.5)
[2017-07-19 09:32] LABS: TROPONIN I 0.05 ng/mL
[2017-07-19 09:36] LABS: INR 1.1 (0.93-1.08); PARTIAL THROMBOPLASTIN TIME 33.1 Seconds (25.1-36.5); PROTHROMBIN TIME 12.7 SECONDS (9.4-12.5)
--- NOTE | 2017-07-19 09:49 | CT ---
PROCEDURE: CT Abdomen and Pelvis without intravenous contrast HISTORY: Left flank pain COMPARISON: None. TECHNIQUE: CT of the abdomen and pelvis was performed without administration of intravenous contrast. Oral contrast was not administered. Coronal and sagittal reformatted images were obtained. Radiation dose: Total exam DLP = 1592.57 mGy-cm. This CT exam was performed using one or more of the following dose reduction techniques: Automated exposure control, adjustment of the mA and/or kV according to patient size, and/or use of iterative reconstruction technique. FINDINGS: LOWER THORAX: The lung bases are clear. LIVER: The liver is normal in size. No gross lesion or ductal dilatation. GALLBLADDER AND BILE DUCTS: There are no calcified gallstones. PANCREAS: Normal in size. No gross lesion or ductal dilatation. SPLEEN: Normal in size and appearance. ADRENALS: No discrete nodule. KIDNEYS AND URETERS: Both kidneys are normal in size. No right hydronephrosis or nephrolithiasis. There is an approximately 3.0 cm staghorn calculus in the left kidney. There are also two discrete 5 mm nonobstructing stones in the lower pole of the left kidney. There is a 4.8 x 3.2 cm simple cyst in the interpolar region of the left kidney. The ureters are not dilated. VASCULATURE: No aortic aneurysm. BOWEL: The small bowel loops are normal in caliber. There is left colonic diverticulosis without CT evidence for acute diverticulitis. No bowel dilatation or obstruction. APPENDIX: Unremarkable. Normal appendix. PERITONEUM: There is a fatty mass with central high attenuation and stranding of fat in the right mid abdomen. No free fluid. No free air. LYMPH NODES: No enlarged lymph nodes. BLADDER: Grossly normal in appearance. REPRODUCTIVE: The prostate gland is normal in size. BONES: No acute fracture. Within normal limits for the patient's age. OTHER FINDINGS: There is a small fat containing umbilical hernia. . IMPRESSION: 1. Large staghorn stone in the interpolar region of the left kidney and 2 subcentimeter nonobstructing stones in the lower pole of the left kidney. No obstructive uropathy. 2. Suspect epiploic appendagitis in the right mid abdomen. 3. Left colonic diverticulosis without CT evidence for acute diverticulitis.
[2017-07-19 11:31] LABS: URINE BILIRUBIN NEGATIVE (NEGATIVE); URINE BLOOD MODERATE (NEGATIVE); URINE GLUCOSE (UA) NEGATIVE (NEGATIVE); URINE LEUKOCYTE ESTERASE NEGATIVE Leu/uL (NEGATIVE); URINE NITRATE NEGATIVE (NEGATIVE); URINE PROTEIN 100 mg/dL (<30 mg/dL); URINE UROBILINOGEN 0.2 E.U./dL (<1 E.U./dL)
[2017-07-19 11:35] LABS: URINE APPEARANCE CLEAR (CLEAR); URINE COLOR YELLOW (YELLOW)
[2017-07-19 11:36] LABS: URINE WBC 0 - 2 /hpf (0-6)
[2017-07-19 11:37] LABS: URINE BACTERIA MANY (NEG); URINE EPITHELIAL CELLS 0 - 2 /hpf (0-5)
[2017-07-19 14:04] VITALS: BMI 43.0
[2017-07-19] MEDS ORDERED: Pneumococcal 23-Valent Vaccine IM ONE (14:04)
[2017-07-19] MEDS ORDERED: Influenza Vaccine 60 mcg/0.5 mL SYR (4YR UP) IM ONE (14:04)
[2017-07-19] MEDS ORDERED: Naproxen 550 mg Tab PO SCH (18:00)
[2017-07-19] MEDS: Naproxen 275 mg Tab PO SCH (18:27)
[2017-07-20 06:40] VITALS: O2SAT 100
--- NOTE | 2017-07-20 08:36 | CON ---
DATE: 07/19/2017 LOCATION: The patient is in room 372, bed 2. REASON FOR CONSULTATION: Chest pain. HISTORY OF PRESENT ILLNESS: The patient is a 52-year-old male, who was admitted with the history that since the last several weeks, he is having pain on the left chest. The pain is located around the left sternal border. The pain is sharp, it has no relation to exertion, it comes off and on and lasting varying interval. If he moves [id number], pain gets worse. He also has tenderness to the area of the pain, local tenderness is present. PAST MEDICAL HISTORY: The patient is known to have hypertension, hyperlipidemia, Kidney Stones and Obesity.. The patient, in May 2017, had a nuclear stress test, which was abnormal. So, following that, he had cardiac catheterization. The cardiac catheterization done on 04/25/2017 showed LV ejection fraction around 55%, left main was normal. LAD diffuse 40% tubular narrowing in its proximal segment. Distal and mid vessel has diffuse irregularities. Diagonal branches has mild diffuse disease. The left circumflex artery gave rise to one large obtuse marginal branch, which has 60% proximal stenosis. Mild irregularities were noted distally. The right coronary artery was dominant. Mild irregularities were noted throughout the proximal and mid portions. Posterior ascending artery had mild disease as well. The posterolateral branch was a [id number] size vessel with 80% stenosis in mid portion at the take-off of the small side branch. In view of above findings, medical therapy was suggested. PERSONAL HISTORY: Denies smoking. Denies drinking. ALLERGIES: THE PATIENT DENIES ANY ALLERGIES. HOME MEDICATIONS: Hydralazine 25 mg b.i.d., amlodipine 10 mg daily, metoprolol succinate (Toprol-XL) 25 mg daily, Lipitor 20 mg daily, and aspirin 1 tablet daily. REVIEW OF SYSTEMS: All the systems reviewed and positive as mentioned in the history, otherwise negative. PHYSICAL EXAMINATION: VITAL SIGNS: Blood pressure of 163/83, respirations 20, pulse 48, and temperature of 98.2. HEENT: Head is normocephalic. Eyes, pupils are normal. Conjunctivae are normal. Nose and throat are normal. NECK: JVP low. Carotids are equal. THORAX: AP diameter normal. LUNGS: Clear. CARDIOVASCULAR: S1 and S2. ABDOMEN: Protuberant. No organomegaly. EXTREMITIES: No clubbing. No cyanosis. LABORATORY DATA: WBC 5.8, hemoglobin 12.8, hematocrit 39.3, and platelet 212. Sodium 144, potassium 4.3, BUN 21, and creatinine 2.2. AST, ALT, calcium, bilirubin, and glucose are normal. Random glucose is 108. Troponin is 0.05. Total protein and albumin are normal. AST 34, ALT 34. PHYSICAL EXAMINATION: VITAL SIGNS: Blood pressure of 125/70, respirations 20, pulse 60, and temperature of 98.2. HEENT: Head is normocephalic. Eyes, pupils are normal. Conjunctivae are slightly pale. NECK: JVP low. Carotids are equal. THORAX: AP diameter normal. LUNGS: Clear. CARDIOVASCULAR: S1 and S2. ABDOMEN: Soft and nontender. No organomegaly. Bowel sounds are normal. EXTREMITIES: No clubbing. No cyanosis. LABORATORY DATA: Sodium 144, potassium 4.3, chloride 107, creatinine 2.2, and BUN 21. Random glucose is 108. Calcium 9.5. Bilirubin 0.3. AST 34, ALT 34, alkaline phosphatase 53. LDL 383. Troponin is 0.05. Total protein is 7.8, albumin is 3.9. Chest x-ray is clear. EKG showed regular sinus rhythm, sinus bradycardia, T-inversion, poor R-wave progression V1 to V3, suggestive of old [place]. DIAGNOSES: Chest pain, musculoskeletal, the patient had tenderness on the point of pain; obesity; history of cardiac cath recently, showed mild irregularities and some mild narrowing of the coronaries without any critical stenosis; hypertension;Renal Stones and obesity. Advised him to lose weight; anemia; renal dysfunction. Sinus Bradycardia due to TOPRL XL 25mg daily. PLAN: We will give Naprosyn 275 b.i.d. along with Protonix 40 daily, hydralazine 25 b.i.d., aspirin 81 mg daily, atorvastatin 20 daily, amlodipine 10 daily. Will not put on Toprol XL 25mg due to Bradycardia. Will Check TSH. Will repeat EKG in Am. We will continue to follow with you. Chace Pride MD [facility] # [id number] MTDD
--- NOTE | 2017-07-20 09:32 | CARD ---
APPROVED REPORT EKG Measurement Heart [id number] <Conclusion> Marked sinus bradycardia Anteroseptal infarct, age undetermined T wave abnormality, consider lateral ischemia No change
[2017-07-20 09:52] LABS: ALBUMIN 4.2 g/dL (3.0-4.8); CALCIUM 9.9 mg/dL (8.4-10.5); MAGNESIUM 1.9 mg/dL (1.7-2.2)
[2017-07-20] MEDS ORDERED: Pantoprazole 40 mg EC Tab PO SCH (10:00)
--- NOTE | 2017-07-20 10:38 | CARD ---
APPROVED REPORT EKG Measurement Heart [id number] <Conclusion> Normal sinus rhythm with sinus arrhythmia Anteroseptal infarct, age undetermined T wave abnormality, consider lateral ischemia No change
[2017-07-20] MEDS: Naproxen 275 mg Tab PO SCH (11:24)
[2017-07-20 11:26] VITALS: BP 157/95
[2017-07-20 12:29] VITALS: PULSE 66
[2017-07-20 14:23] VITALS: RESP 18; TEMP 98.1
--- NOTE | 2017-07-20 15:43 | HP ---
The patient is a 52-year-old male, seen by me in the ER on 07/19/2017. CHIEF COMPLAINT: Chest pain. HISTORY OF PRESENT ILLNESS: Mr. Cristo Chopra is a 52-year-old male with past medical history of hypertension, came to the emergency department, complaining of chest pain since this morning. The patient reports that this past week, he had been feeling intermittent dizziness, feeling warm off and on. He says, waking up in this morning, when he was putting on his shoes, got chest pain substernally, not pleuritic, associated with dizziness. No nausea, vomiting, or diarrhea. No fever. No chills. The patient went to [facility] 1 week ago for abdominal pain and was diagnosed with kidney stone after finding hematuria in urinalysis. Complained about chronic lower left flank pain and taking aspirin this morning. Discussion done with ER physician. PAST MEDICAL HISTORY: As above. Hypertension, left eye surgery, history of kidney stones, and back pain. FAMILY HISTORY: Father and mother, noncontributory. HABITS: no alcohol, no substance abuse. ALLERGIES: THE PATIENT IS NOT ALLERGIC TO ANY MEDICATIONS. HOME MEDICATIONS: Reviewed by me. REVIEW OF SYSTEMS: The patient is seen and examined on the bedside in the ER on 07/19/2017, still complaining about chest pain. No nausea, vomiting, or diarrhea. No hematuria or hematochezia. No shortness of breath. No fever. No chills. No chest pain. No palpitation. No abdominal pain. No neck pain or dizziness. PHYSICAL EXAMINATION: VITAL SIGNS: Temperature 98, pulse 55, respiratory rate 17, blood pressure , pulse oximetry 98. HEENT: Head: Normocephalic and atraumatic. Eyes: PERRLA. Extraocular movements are intact. Conjunctivae clear. Nose patent. Mucous membrane moist. NECK: Supple. No carotid bruit. No JVD or thyromegaly. CHEST: Bilaterally symmetrical. HEART: S1 and S2 positive. LUNGS: Clear to auscultation. ABDOMEN: Soft. Bowel sounds present. No organomegaly. EXTREMITIES: No edema. No cyanosis. NEUROLOGIC: The patient is awake, alert. Moving all four extremities. No focal deficit. LABORATORY DATA: White blood cells 5.8, hemoglobin 12.8, hematocrit 39.3, platelets 212. Sodium 141, potassium , BUN , creatinine noted glucose 108. ASSESSMENT AND PLAN: Mr. Cristo Chopra is a 52-year-old male with anemia, renal insufficiency, came with chest pain, left flank pain, history of nephrolithiasis, staghorn calculus. Discussion done with Dr. Ana Henriquez. 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 Now, he and his want new physician. They gave me name , Obesity noted . CAT scan of the chest and abdomen done. Large staghorn stone in the interpolar region and within left kidney and two subcentimeter stones at the lower pole of the left kidney suspect epiploic appendicitis in the right mid abdomen, diverticulosis without CT evidence for acute diverticulosis. We ordered cardiac enzymes x3, given naproxen, hydralazine, aspirin, atorvastatin for hypercholesterolemia. Consult called for Dr. Mcintosh and Dr. Pride. We will follow up. Sofi Jordan MD MTDD
--- NOTE | 2017-07-20 16:58 | PN ---
DATE: 07/20/2017 LOCATION: The patient in room 372, bed 2. REASON FOR CONSULTATION: Chest pain. SUBJECTIVE: The patient is sitting in bed without any chest pain, shortness of breath, or palpitation. PHYSICAL EXAMINATION: VITAL SIGNS: Blood pressure 157/95, respirations 20, pulse 75, and temperature of 97.2. HEENT: Head is normocephalic. Eyes: Pupils are normal. Conjunctivae are normal. Nose and throat are normal. NECK: JVP low. Carotids are equal. THORAX: AP diameter normal. LUNGS: Clear. CARDIOVASCULAR: S1 and S2. Tenderness chest wall which was present yesterday, is not present today. ABDOMEN: Protuberant. No organomegaly. EXTREMITIES: No clubbing. No cyanosis. LABORATORY DATA: WBC 5.8, hemoglobin 12.8, hematocrit 39.3, and platelet 212. Sodium 146, potassium 4.7. BUN 23, creatinine 2.3. Glucose 104. AST and ALT normal. Total protein 8.5, albumin 4.2. DIAGNOSES: Chest pain, musculoskeletal, which has improved. The patient recently had cardiac catheterization which showed mild irregularities and some mild narrowing of the coronaries without any critical stenosis. A detailed description had been put in our consult note for 07/19/2017. Hypertension, renal stones, obesity, renal dysfunction, anemia. The patient's bradycardia which was present on admission was probably related to Toprol XL because today, patient does not have any bradycardia. PLAN: The patient has been added hydralazine 25 mg b.i.d. for high blood pressure, started yesterday evening; aspirin 81 mg daily; atorvastatin 20 daily; amlodipine 10 daily. The patient was at home on Toprol XL 25 mg daily, so now we can start metoprolol 12.5 mg once a day. Since the patient had hydralazine last night and we will monitor blood pressure; if still high, then we will increase the dose of hydralazine. Patient's TSH has been also checked and it is normal at 3.56. Also, advised the patient to lose weight. We will follow with you. Chace Pride MD
== END 2017-07-20 15:23 | disposition home or self-care (01) ==
LOC: ED 07:55 → ERH 10:41 → 3RSO 13:40
PROVIDERS: ADMIT Internal Medicine; ATTEND Internal Medicine
DX: R07.89 Other chest pain (principal); N20.0 Calculus of kidney; I10 Essential (primary) hypertension; E78.00 Pure hypercholesterolemia, unspecified; D64.9 Anemia, unspecified; E66.9 Obesity, unspecified; Z68.41 Body mass index [BMI] 40.0-44.9, adult; R00.1 Bradycardia, unspecified; T44.7X5A Adverse effect of beta-adrenoreceptor antagonists, initial encounter; Z79.82 Long term (current) use of aspirin
CPT/HCPCS: 36415; 71045; 74176; 80053; 81001; 82550; 83615; 83735; 84443; 84484; 85025; 85610; 85730; 93005; 96374; 96375; 99285; G0378; J0360

== ENCOUNTER 2017-10-12 09:05 | Emergency (ER) | payer BC ==
[2017-10-12 09:22] VITALS: BMI 46.0
[2017-10-12 09:24] VITALS: RESP 18; TEMP 98.2
[2017-10-12] MEDS ORDERED: Sodium Chloride 0.9% 500 ML IV STA (09:44)
[2017-10-12 10:18] LABS: BASO # 0.01 K/mm3 (0.0-2.0); BASO % 0.1 % (0.0-3.0); EOS # 0.2 (0.0-0.7); EOS % 2.5 % (1.5-5.0); GRAN # 4.63 (1.4-6.5); GRAN % 58.9 % (50.0-68.0); HEMOGLOBIN 14.1 g/dL (14.0-18.0); LYMPH % 25.7 % (22.0-35.0); MEAN CORPUSCULAR HEMOGLOBIN 29.9 pg (25.0-35.0); MEAN CORPUSCULAR HGB CONC 33.2 g/dl (31.0-37.0); MEAN PLATELET VOLUME 9.7 fl (7.0-11.0); MONO % 12.8 % (1.0-6.0); RBC 4.72 10^6/uL (3.5-6.1); URINE BILIRUBIN NEGATIVE (NEGATIVE); URINE BLOOD SMALL (NEGATIVE); URINE GLUCOSE (UA) NEGATIVE (NEGATIVE); URINE LEUKOCYTE ESTERASE NEGATIVE Leu/uL (NEGATIVE); URINE PROTEIN 100 mg/dL (<30 mg/dL); URINE UROBILINOGEN 0.2 E.U./dL (<1 E.U./dL); WHITE BLOOD COUNT 7.9 10^3/ul (4.5-11.0)
[2017-10-12 10:19] LABS: URINE APPEARANCE CLEAR (CLEAR); URINE COLOR YELLOW (YELLOW)
--- NOTE | 2017-10-12 10:23 | ED PDOC ---
Arrival/HPI - General Chief Complaint: Male Genitourinary Time Seen by Provider: 10/12/17 09:41 Historian: Patient - History of Present Illness Narrative History of Present Illness (Text): 10/12/17 09:52 52yr old male with hx of HTN and hyperlipidemia presents today with 2 day history of left flank, back pain with radiation to the abdomen. pt also c/o left arm pain. pt denies cp or sob. no n/v/d/c. pt with hx of kidney stones. denies testicular pain. pt denies dysuria or hematuria. pt was seen at urgent care yesterday and was told to come to ER to have ct to r/o kidney stones. pt has f/u appointment with urologist to have stent placed in 6 days. pt denies fever/chills. pt states he took tylenol for pain. no other complaints. Past Medical History - Provider Review Nursing Documentation Reviewed: Yes - Travel History Have you recently traveled outside [place] w/in the past 3 mons?: No - Infectious Disease Hx of Infectious Diseases: None - Tetanus Immunization Tetanus Immunization: Unknown - Past Medical History Past Medical History: No Previous - Cardiac Hx Cardiac Disorders: Yes (cp) Hx Hypertension: Yes Other/Comment: h/o cardiac cath 2017 - Pulmonary Hx Respiratory Disorders: No - Neurological Hx Neurological Disorder: No - HEENT Hx HEENT Disorder: (glasses/nearsighted and farsighted) Other/Comment: left eye sx age 11 pt stated "There was a white film over my eye causing impaired vision." Vision ok now - Renal Hx Kidney Stones: Yes (left lithotripsy 11 yrs ago) Other/Comment: pt recently dx with another left kidney stone - Endocrine/Metabolic Hx Endocrine Disorders: No - Hematological/Oncological Hx Blood Disorders: No - Integumentary Hx Dermatological Disorder: No - Musculoskeletal/Rheumatological Hx Back Pain: Yes (chronic left lower back) Hx Falls: No - Gastrointestinal Hx Gastrointestinal Disorders: Yes (obese) - Genitourinary/Gynecological Hx Genitourinary Disorders: Yes Hx Hematuria: Yes - Psychiatric Hx Psychophysiologic Disorder: No Hx Substance Use: No - Past Surgical History Past Surgical History: No Previous - Surgical History Hx Cardiac Catheterization: Yes Other/Comment: Left eye - Anesthesia Hx Anesthesia: Yes Hx Anesthesia Reactions: No - Suicidal Assessment Feels Threatened In Home Enviroment: No Family/Social History - Physician Review Nursing Documentation Reviewed: Yes Family/Social History: Unknown Family HX Smoking Status: Never Smoked Hx Alcohol Use: No Hx Substance Use: No Hx Substance Use Treatment: No Allergies/Home Meds Allergies/Adverse Reactions: Allergies No Known Allergies Allergy (Verified 07/19/17 08:05) Home Medications: Home Meds Medication Instructions Recorded Confirmed Atorvastatin [Lipitor] 20 mg PO DAILY 04/26/17 10/12/17 amLODIPine [Norvasc] 10 mg PO DAILY 04/26/17 10/12/17 hydrALAZINE [hydralazine 10 mg PO TID 04/26/17 10/12/17 Hydrochloride] Losartan Potassium [Losartan 1 tab PO DAILY 10/12/17 10/12/17 Potassium] Metoprolol Succinate [Toprol XL] 1 tab PO DAILY 10/12/17 10/12/17 Review of Systems - Review of Systems Constitutional: absent: Fatigue, Fevers Respiratory: absent: SOB, Cough Cardiovascular: absent: Chest Pain, Palpitations Gastrointestinal: Abdominal Pain. absent: Constipation, Diarrhea, Nausea, Vomiting Genitourinary Male: absent: Dysuria, Frequency, Hematuria, Urinary Output Changes Musculoskeletal: Arthralgias (left arm pain), Back Pain. absent: Neck Pain Skin: absent: Rash, Pruritis Neurological: absent: Headache, Dizziness Psychiatric: absent: Anxiety, Depression, Suicidal Ideation Physical Exam Vital Signs Reviewed: Yes Vital Signs Temp Pulse Resp BP Pulse Ox 10/12/17 12:50 18 10/12/17 12:47 60 18 139/82 97 10/12/17 11:23 61 18 143/80 98 10/12/17 09:22 98.2 F 59 L 18 144/81 98 Temperature: Afebrile Blood Pressure: Normal Pulse: Bradycardic Respiratory Rate: Normal Appearance: Positive for: Well-Appearing, Non-Toxic, Comfortable Pain Distress: None Mental Status: Positive for: Alert and Oriented X 3 - Systems Exam Head: Present: Atraumatic Mouth: Present: Moist Mucous Membranes Neck: Present: Normal Range of Motion Respiratory/Chest: Present: Clear to Auscultation, Good Air Exchange. No: Respiratory Distress, Accessory Muscle Use Cardiovascular: Present: Regular Rate and Rhythm, Normal S1, S2. No: Murmurs Abdomen: No: Tenderness, Distention, Peritoneal Signs, Rebound, Guarding Back: Present: Normal Inspection. No: CVA Tenderness, Midline Tenderness, Paraspinal Tenderness Upper Extremity: Present: Normal ROM. No: Tenderness Lower Extremity: Present: Normal ROM Neurological: Present: GCS=15, Speech Normal Skin: Present: Warm, Dry, Normal Color. No: Rashes Psychiatric: Present: Alert, Oriented x 3 Medical Decision Making ED Course and Treatment: 10/12/17 12:30 Patient complaining of left flank pain 2 days with radiation to the abdomen into the left arm history of kidney stone scheduled for stent placement in 6 days. Patient denies any pain at present time. CBC within normal limits CMP: Creatinine 2.4 Troponin 0.04 decreased from previous visit Chest x-ray no infiltrate or effusion no cardiomegaly CT of the abdomen and pelvis: FINDINGS: LOWER THORAX: Unremarkable. LIVER: Unremarkable. No gross lesion or ductal dilatation. GALLBLADDER AND BILE DUCTS: Unremarkable. PANCREAS: Unremarkable. No gross lesion or ductal dilatation. SPLEEN: Unremarkable. ADRENALS: Unremarkable. No mass. KIDNEYS AND URETERS: Stable 3.1 centimeter left renal staghorn calculus. Stable 4.5 centimeter cyst. . No hydronephrosis. No solid mass. VASCULATURE: Unremarkable. No aortic aneurysm. BOWEL: Unremarkable. No obstruction. No gross mural thickening. APPENDIX: Unremarkable. Normal appendix. PERITONEUM: Unremarkable. No free fluid. No free air. LYMPH NODES: Unremarkable. No enlarged lymph nodes. BLADDER: Unremarkable. REPRODUCTIVE: Prostate enlargement. BONES: No acute fracture. OTHER FINDINGS: None. IMPRESSION: Stable 3.1 centimeter left renal staghorn calculus. Stable 4.5 centimeter cyst. I had a long in depth conversation with the patient and his regarding his lab results. Regarding his elevated kidney function. I've advised him of my concern for pain radiating into the left arm being related to a possible issue with the heart including heart attack. Patient has refused admission to the hospital. The patient's states that she is going to try and make an appointment with the speech lang path today. She states that the patient had symptoms like this in the past and they were related to the kidney stone. I've advised both the patient and his of the risk of heart attack stroke disability or worsening of symptoms if they signed out AGAINST MEDICAL ADVICE. I 've advised him that they can return at any point in time if they wish to continue their care Patient has been advised to not leave the emergency room but has decided to go AGAINST MEDICAL ADVICE. The patient possesses capacity to make decisions and has voiced understanding to all my warnings of potential worsening of the condition for which medical care was sought. I have discussed all known and potential risks and consequences to the patient leaving AGAINST MEDICAL ADVICE. Patient is leaving against medical advise. AMA form signed. witness by Criselda CARRANZA Impression: Staghorn calculus, renal insufficiency, elevated troponin, RETURN IF YOU WISH TO CONTINUE YOUR CARE. follow up with the speech lang path follow up with the urologist follow up with the primary care physician return immediately if symptoms worsen,persist or if new symptoms develop. . 10/12/17 14:26 - Lab Interpretations Lab Results: 10/12/17 09:50 10/12/17 09:50 Lab Results 10/12/17 09:50: WBC 7.9 D, RBC 4.72, Hgb 14.1, Hct 42.5, MCV 90.0, MCH 29.9, MCHC 33.2, RDW 13.0, Plt Count 241, MPV 9.7, Gran % 58.9, Lymph % (Auto) 25.7, [place] % (Auto) 12.8 H, Eos % (Auto) 2.5, Baso % (Auto) 0.1, Gran # 4.63, Lymph # (Auto) 2.0, [place] # (Auto) 1.0 H, Eos # (Auto) 0.2, Baso # (Auto) 0.01 10/12/17 09:50: Sodium 148, Potassium 4.6, Chloride 109 H, Carbon Dioxide 25, Anion Gap 18, BUN 21, Creatinine 2.4 H, Est GFR ( Amer) 34, Est GFR (Non- Af Amer) 28, Random Glucose 105, Calcium 9.4, Total Bilirubin 0.3, AST 17 D, ALT 32, Alkaline Phosphatase 60, Lactate Dehydrogenase 404, Total Creatine Kinase 102, Troponin I 0.04, Total Protein 8.1, Albumin 4.2, Globulin 3.8, Albumin/Globulin Ratio 1.1, Lipase 138 10/12/17 09:50: Urine Color Yellow, Urine Appearance Clear, Urine pH 6.0, Ur Specific [place] 1.020, Urine Protein 100 H, Urine Glucose (UA) Negative, Urine Ketones Negative, Urine Blood Small H, Urine Nitrate Negative, Urine Bilirubin Negative, Urine Urobilinogen 0.2, Ur Leukocyte Esterase Negative, Urine RBC 5 - 10, Urine WBC 1 - 3, Ur Epithelial Cells None, Urine Bacteria Few - RAD Interpretation Radiology Orders: 10/12/17 09:43 CHEST PORTABLE [RAD] Stat 10/12/17 10:28 ABD & PELVIS W/O PO OR IV CONT [CT] Stat - Medication Orders Current Medication Orders: Discontinued Medications Sodium Chloride (Sodium Chloride 0.9%) 500 mls @ 999 mls/hr IV .Q31M STA Stop: 10/12/17 10:14 Last Admin: 10/12/17 09:54 Dose: 999 mls/hr eMAR Start Stop Document 10/12/17 09:54 SF (Rec: 10/12/17 09:55 SF [facility] [place] [facility] [id number] Intravenous Solution Start Date 10/12/17 Start Time 09:54 End Date 10/12/17 End time 10:25 Total Infusion Time 31 Disposition/Present on Arrival - Present on Arrival Any Indicators Present on Arrival: No History of DVT/PE: No History of Uncontrolled Diabetes: No Urinary Catheter: No History of Decub. Ulcer: No History Surgical Site Infection Following: None - Disposition Have Diagnosis and Disposition been Completed?: Yes Diagnosis: Staghorn calculus, Back pain, Renal insufficiency, Elevated troponin Disposition: AGAINST MEDICAL ADVICE Disposition Time: 12:27 Patient Plan: Other (AMA) Condition: FAIR Discharge Instructions (ExitCare): Kidney Stones in Adults, Upper Back Pain (DC ) Additional Instructions: RETURN IF YOU WISH TO CONTINUE YOUR CARE. follow up with the speech lang path follow up with the urologist follow up with the primary care physician return immediately if symptoms worsen,persist or if new symptoms develop. Referrals: Sofi Jordan MD [Primary Care Provider] - Follow up with primary Chace Winston MD [Staff Provider] - Follow up with primary Forms: [employer] ([place])
[2017-10-12 10:29] LABS: ALB/GLOB RATIO 1.1 (1.1-1.8); ALBUMIN 4.2 g/dL (3.0-4.8); CALCIUM 9.4 mg/dL (8.4-10.5)
--- NOTE | 2017-10-12 10:33 | RAD ---
HISTORY: left upper back pain, left arm pain, abd pain COMPARISON: 07/19/2017 FINDINGS: LUNGS: No active pulmonary disease. PLEURA: No significant pleural effusion identified, no pneumothorax apparent. CARDIOVASCULAR: Normal. OSSEOUS STRUCTURES: No significant abnormalities. VISUALIZED UPPER ABDOMEN: Normal. OTHER FINDINGS: None. IMPRESSION: No active disease.
[2017-10-12 10:39] LABS: TROPONIN I 0.04 ng/mL
[2017-10-12 11:12] LABS: URINE BACTERIA FEW (NEG)
--- NOTE | 2017-10-12 11:56 | CT ---
PROCEDURE: CT Abdomen and Pelvis without intravenous contrast HISTORY: flank pain COMPARISON: 07/19/2017 TECHNIQUE: Technique. Contrast dose: Radiation dose: Total exam DLP = mGy-cm. This CT exam was performed using one or more of the following dose reduction techniques: Automated exposure control, adjustment of the mA and/or kV according to patient size, and/or use of iterative reconstruction technique. FINDINGS: LOWER THORAX: Unremarkable. LIVER: Unremarkable. No gross lesion or ductal dilatation. GALLBLADDER AND BILE DUCTS: Unremarkable. PANCREAS: Unremarkable. No gross lesion or ductal dilatation. SPLEEN: Unremarkable. ADRENALS: Unremarkable. No mass. KIDNEYS AND URETERS: Stable 3.1 centimeter left renal staghorn calculus. Stable 4.5 centimeter cyst. . No hydronephrosis. No solid mass. VASCULATURE: Unremarkable. No aortic aneurysm. BOWEL: Unremarkable. No obstruction. No gross mural thickening. APPENDIX: Unremarkable. Normal appendix. PERITONEUM: Unremarkable. No free fluid. No free air. LYMPH NODES: Unremarkable. No enlarged lymph nodes. BLADDER: Unremarkable. REPRODUCTIVE: Prostate enlargement. BONES: No acute fracture. OTHER FINDINGS: None. IMPRESSION: Stable 3.1 centimeter left renal staghorn calculus. Stable 4.5 centimeter cyst.
[2017-10-12 12:49] VITALS: BP 139/82; PULSE 60; O2SAT 97
--- NOTE | 2017-10-12 14:35 | CARD ---
APPROVED REPORT EKG Measurement Heart [id number] <Conclusion> Normal sinus rhythm with sinus arrhythmia Hasmukh-septal infarct, age undetermined T wave abnormality, consider inferolateral ischemia No change
== END 2017-10-12 12:50 | disposition left against medical advice (07) ==
LOC: ED 09:05
DX: N20.0 Calculus of kidney (principal); M54.6 Pain in thoracic spine; R79.89 Other specified abnormal findings of blood chemistry; E78.5 Hyperlipidemia, unspecified; I10 Essential (primary) hypertension
CPT/HCPCS: 71045; 74176; 80053; 81001; 82550; 83615; 83690; 84484; 85025; 87086; 93005; 96360; 99285; J7040

== ENCOUNTER 2017-10-19 07:39 | Emergency (ER) | payer BC ==
[2017-10-19 07:40] VITALS: BMI 46.0
[2017-10-19 08:03] VITALS: BP 152/80; TEMP 97.9
[2017-10-19] MEDS ORDERED: Morphine 4 mg/ml ISec IVP STA (08:04)
--- NOTE | 2017-10-19 08:09 | ED PDOC ---
Arrival/HPI - General Chief Complaint: Upper Extremity Problem/Injury Time Seen by Provider: 10/19/17 08:04 Historian: Patient - History of Present Illness Narrative History of Present Illness (Text): 10/19/17 08:06 pt p/w + left arm pain, sudden onset x hours, just prior to emergency department arrival; pt states pain seems to radiating up from his left back; pt also noted left flank pain, severe, rated at 7/10; pt has had prior hx of left flank pain (dx with kidney stones) x few weeks/months; pt states today, + felt dizzy/lightheaded, + nausea, no fever/chills, mild diaphoresis, no chest pain/ shortness of breath/palpitations, no mid abd pain, no vomiting, no numbness/ tingling, no hematuria, + mild urinary discomfort, no urinary frequency, no bowel changes, no fall/trauma/sick contact, 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 PCP: Dr Jordan UROLOGY: Dr Sifuentes Cards: ? [facility] recent cardiac cath < 6 months ago Time/Duration: Prior to Arrival (left arm pain), Other (left flank pain x months ) Symptom Onset: Sudden Symptom Course: Unchanged Quality: Tightness, Cramping Severity Level: 7, Severe Activities at Onset: Rest Context: Home Past Medical History - Provider Review Nursing Documentation Reviewed: Yes - Travel History Have you recently traveled outside [place] w/in the past 3 mons?: No - Past History Past History: No Previous - Infectious Disease Hx of Infectious Diseases: None - Tetanus Immunization Tetanus Immunization: Unknown - Past Medical History Past Medical History: No Previous - Cardiac Hx Cardiac Disorders: Yes (cp) Hx Hypertension: Yes Other/Comment: h/o cardiac cath 2017 - Pulmonary Hx Respiratory Disorders: No - Neurological Hx Neurological Disorder: No - HEENT Hx HEENT Disorder: (glasses/nearsighted and farsighted) Other/Comment: left eye sx age 11 pt stated "There was a white film over my eye causing impaired vision." Vision ok now - Renal Hx Kidney Stones: Yes (left lithotripsy 11 yrs ago) Other/Comment: pt recently dx with another left kidney stone - Endocrine/Metabolic Hx Endocrine Disorders: No - Hematological/Oncological Hx Blood Disorders: No - Integumentary Hx Dermatological Disorder: No - Musculoskeletal/Rheumatological Hx Back Pain: Yes (chronic left lower back) Hx Falls: No - Gastrointestinal Hx Gastrointestinal Disorders: Yes (obese) - Genitourinary/Gynecological Hx Genitourinary Disorders: Yes Hx Hematuria: Yes - Psychiatric Hx Psychophysiologic Disorder: No Hx Substance Use: No - Past Surgical History Past Surgical History: No Previous - Surgical History Hx Cardiac Catheterization: Yes Other/Comment: Left eye - Anesthesia Hx Anesthesia: Yes Hx Anesthesia Reactions: No - Suicidal Assessment Feels Threatened In Home Enviroment: No Family/Social History - Physician Review Nursing Documentation Reviewed: Yes Family/Social History: No Known Family HX Smoking Status: Never Smoked Hx Alcohol Use: No Hx Substance Use: No Hx Substance Use Treatment: No Allergies/Home Meds Allergies/Adverse Reactions: Allergies No Known Allergies Allergy (Verified 10/19/17 07:54) Home Medications: Home Meds Medication Instructions Recorded Confirmed amLODIPine [Norvasc] 10 mg PO DAILY 04/26/17 10/19/17 Losartan Potassium [Losartan 50 tab PO DAILY 10/12/17 10/19/17 Potassium] Review of Systems - Review of Systems Constitutional: Normal Eyes: Normal ENT: Normal Respiratory: Normal. absent: SOB Cardiovascular: Normal. absent: Chest Pain, Palpitations Gastrointestinal: Nausea. absent: Constipation, Diarrhea, Vomiting Genitourinary Male: Frequency. absent: Dysuria Musculoskeletal: Back Pain (left flank pain). absent: Arthralgias Skin: Normal. absent: Rash Neurological: Dizziness. absent: Headache Endocrine: Diaphoresis Hemo/Lymphatic: Normal Psychiatric: Normal Physical Exam - Physical Exam Narrative Physical Exam (Text): 10/19/17 08:05 General: alert/awake, GCS = 15, oriented x 3, resting in bed, uncomfortable, cooperative, interactive Head: NC/AT Eye: PERRLA, EOMI, sclera anicteric, no nystagmus, no photophobia Face: WNL ORAL: intact dentitions, no drooling/stridor, no dysphonia, no exudate/lesions NECK: intact ROM, no midline tenderness, no nuchal rigidity, no meningeal signs Chest: no focal tenderness, no crepitus, no lesions, no gross deformities Lung: CTA b/l, no w/r/r Card: +S1, +S2, no m/r/r ABD: +BS, soft/nd/nt, well nourished/obese patient; no kiran's sign, no mcburney's point tenderness, no masses/rebound/guarding/rigidity BACK: + left CVAT, mild; no step off, no midline tenderness, no gross deformities Ext: intact ROM, strength 5/5 grossly intact in all limbs, neurovasc intact b/l SKIN: cap refill < 1 sec, no ulcerations, no petechiae, no rashes NEURO: CNII-XII WNL, no facial asymmetries, no slurr speech, oriented x 3 Psych: normal insight, cooperative, normal conentration Vital Signs Reviewed: Yes Vital Signs Temp Pulse Resp BP Pulse Ox 10/19/17 07:59 97.9 F 75 16 152/80 H 97 Temperature: Afebrile Blood Pressure: Hypertensive Pulse: Regular Respiratory Rate: Normal Appearance: Positive for: Well-Appearing, Non-Toxic, Uncomfortable Pain Distress: None Mental Status: Positive for: Alert and Oriented X 3 - Systems Exam Head: Present: Atraumatic, Normocephalic Medical Decision Making ED Course and Treatment: 10/19/17 08:08 Impression: left arm pain, left flank pain i have consider all the differential diagnosis regarding pt's chief medical complaints/clinical findings, including but are not limited to: ? R/O ACS, left flank pain - kid stone vs infection A/P: left arm pain, left flank pain - labs - iv - acs eval - ct?, ua - supportive care - observe/reevaluation 10/19/17 09:[address] Mathews, who is made aware of Mr. Chopra's family and patient's complaint. Dr. Mathews was also made aware of my recommendation of admitting patient for observation, but family is leaning towards refusing the recommendation. Dr. Mathews agrees with my recommendation for admission/ observation placement, and if patient is agreeable, then Dr. Jordan states to consult Dr. Sifuentes and Dr. Montalvo and will admit/observe patient 10/19/17 09:55 After discussion with family, they were made aware of emergency department concerns. Patient accepts emergency department recommendation for admission. 1100 pt is made aware of his medical results pt agrees with admission/observation Re-evaluation Time: 09:45 Reassessment Condition: Improving,but remains with symptoms - Lab Interpretations Lab Results: 10/19/17 08:31 10/19/17 08:31 Lab Results 10/19/17 08:31: Sodium 150 H, Potassium 5.0, Chloride 111 H, Carbon Dioxide 24, Anion Gap 20, BUN 22 H, Creatinine 2.3 H, Est GFR ( Amer) 36, Est GFR ( Non-Af Amer) 30, Random Glucose 98, Calcium 9.2, Magnesium 1.9, Total Bilirubin 0.4, AST 23, ALT 25, Alkaline Phosphatase 53, Lactate Dehydrogenase 435, Total Creatine Kinase 103, Troponin I 0.04, NT-Pro-B Natriuret Pep 98.1, Total Protein 8.3, Albumin 4.3, Globulin 4.0, Albumin/Globulin Ratio 1.1 10/19/17 08:31: PT 12.5, INR 1.09 H, APTT 33.0 10/19/17 08:31: WBC 7.0, RBC 4.49, Hgb 13.5 L, Hct 40.7 L, MCV 90.6, MCH 30.1, MCHC 33.2, RDW 12.9, Plt Count 240, MPV 9.7, Gran % 58.9, Lymph % (Auto) 28.0, [place] % (Auto) 10.5 H, Eos % (Auto) 2.3, Baso % (Auto) 0.3, Gran # 4.14, Lymph # (Auto) 2.0, [place] # (Auto) 0.7 H, Eos # (Auto) 0.2, Baso # (Auto) 0.02 I have reviewed the lab results: Yes Interpretation: Abnormal lab values - RAD Interpretation Narrative RAD Interpretations (Text): 10/19/17 10:00 Chest X-ray: Creator : Michael Cuenca MD FINDINGS: LUNGS: No active pulmonary disease. PLEURA: No significant pleural effusion identified. No pneumothorax apparent. CARDIOVASCULAR: Normal. OSSEOUS STRUCTURES: No significant abnormalities. VISUALIZED UPPER ABDOMEN: Normal. OTHER FINDINGS: None. IMPRESSION: No active disease. 10/19/17 10:[address]: Creator : Claus Kapoor MD FINDINGS: LOWER THORAX:Unremarkable. LIVER:Unremarkable. No gross lesion or ductal dilatation. GALLBLADDER AND BILE DUCTS:Unremarkable. PANCREAS:Unremarkable. No gross lesion or ductal dilatation. SPLEEN:Unremarkable. ADRENALS:Unremarkable. No mass. KIDNEYS AND URETERS:There is a staghorn calculus in the left renal pelvis measuring 27 x 30 mm. There is no evidence of hydronephrosis. There are no ureteral stones. There is a simple cyst in the left kidney. The right kidney is unremarkable VASCULATURE:Unremarkable. No aortic aneurysm. BOWEL:Unremarkable. No obstruction. No gross mural thickening. APPENDIX:Unremarkable. Normal appendix. PERITONEUM:Unremarkable. No free fluid. No free air. LYMPH NODES:Unremarkable. No enlarged lymph nodes. BLADDER:Unremarkable. REPRODUCTIVE:Unremarkable. BONES:Disc degeneration at L4-5 OTHER FINDINGS:None. IMPRESSION: Left-sided staghorn calculus. No evidence of hydronephrosis Radiology Orders: 10/19/17 08:04 CHEST TWO VIEWS (PA/LAT) [RAD] Stat 10/19/17 08:19 ABD & PELVIS W/O PO OR IV CONT [CT] Stat Supervisor Pyrotechnic Loading: Radiologist - EKG Interpretation EKG Interpretation (Text): 10/19/17 11:21 Sinus avila at 50 bpm, normal axis, no ectopy, qs in leads V1-3, inverted T in leads I, L, V4-6, biphasic T in leads V1-3, ABNL EKG; unchanged compare with old ekg 10/2017 Interpreted by ED Physician: Yes Type: 12 lead EKG Comparison: Similar to previous EKG - Medication Orders Current Medication Orders: Sodium Chloride (Sodium Chloride 0.9%) 1,000 mls @ 100 mls/hr IV .Q10H CODY Last Admin: 10/19/17 09:02 Dose: 100 mls/hr eMAR Start Stop Document 10/19/17 09:02 [email or web address] (Rec: 10/19/17 09:02 [email or web address] [id number]) Intravenous Solution Start Date 10/19/17 Start Time 09:02 Discontinued Medications Aspirin (Aspirin) 325 mg PO STAT STA Stop: 10/19/17 08:05 Last Admin: 10/19/17 09:03 Dose: 325 mg Hydromorphone HCl (Dilaudid) 1 mg IVP STAT STA Stop: 10/19/17 10:03 Morphine Sulfate (Morphine) 4 mg IVP STAT STA Stop: 10/19/17 08:05 Last Admin: 10/19/17 09:03 Dose: 4 mg MAR Pain Assessment Document 10/19/17 09:03 [email or web address] (Rec: 10/19/17 09:04 [facility] [id number]) Pain Reassessment Is this a pain reassessment? No Sleep Is patient sleeping during reassessment? No Presence of Pain Presence of Pain Yes Pain Scale Used Pain Scale Used Numeric Location Left, Right or Bilateral Left Pain Location Body Site Arm Description Description Constant Intensity of Pain at present 7 Pain Behavior Facial Grimacing Alleviating Factors/Management Medication Techniques Alleviating Factors Medication IVP Administration Document 10/19/17 09:03 [facility] (Rec: 10/19/17 09:04 [facility] [id number]) Charges for Administration # of IVP Administrations 1 Disposition/Present on Arrival - Present on Arrival Any Indicators Present on Arrival: No History of DVT/PE: No History of Uncontrolled Diabetes: No Urinary Catheter: No History of Decub. Ulcer: No History Surgical Site Infection Following: None - Disposition Have Diagnosis and Disposition been Completed?: Yes Diagnosis: Chest pain with minimal risk for cardiac etiology, Hypernatremia, Flank pain, Staghorn calculus, Renal insufficiency Disposition: HOSPITALIZED Disposition Time: 10:00 Patient Plan: Admission, Observation Condition: STABLE
[2017-10-19] MEDS ORDERED: Sodium Chloride 0.9% 1,000 ML IV SCH (08:30)
[2017-10-19 08:35] LABS: BASO # 0.02 K/mm3 (0.0-2.0); BASO % 0.3 % (0.0-3.0); EOS # 0.2 (0.0-0.7); EOS % 2.3 % (1.5-5.0); GRAN # 4.14 (1.4-6.5); GRAN % 58.9 % (50.0-68.0); HEMOGLOBIN 13.5 g/dL (14.0-18.0); MEAN CELL VOLUME 90.6 fl (80.0-105.0); MEAN CORPUSCULAR HEMOGLOBIN 30.1 pg (25.0-35.0); MEAN CORPUSCULAR HGB CONC 33.2 g/dl (31.0-37.0); MEAN PLATELET VOLUME 9.7 fl (7.0-11.0); MONO # 0.7 (0.1-0.6); MONO % 10.5 % (1.0-6.0); RBC 4.49 10^6/uL (3.5-6.1); RED CELL DISTRIBUTION WIDTH 12.9 % (11.5-14.5)
[2017-10-19 08:47] LABS: INR 1.09 (0.93-1.08); PROTHROMBIN TIME 12.5 SECONDS (9.4-12.5)
[2017-10-19 08:53] LABS: ALB/GLOB RATIO 1.1 (1.1-1.8); ALBUMIN 4.3 g/dL (3.0-4.8); CALCIUM 9.2 mg/dL (8.4-10.5)
[2017-10-19 08:56] LABS: B-TYPE NATRIURETIC PEPTIDE 98.1 pg/mL (0-450); TROPONIN I 0.04 ng/mL
--- NOTE | 2017-10-19 09:05 | CT ---
PROCEDURE: CT Abdomen and Pelvis without intravenous contrast HISTORY: left flank pain; hx of stone COMPARISON: None. TECHNIQUE: Without contrast.. Contrast dose: Radiation dose: Total exam DLP = 1621 mGy-cm. This CT exam was performed using one or more of the following dose reduction techniques: Automated exposure control, adjustment of the mA and/or kV according to patient size, and/or use of iterative reconstruction technique. FINDINGS: LOWER THORAX: Unremarkable. LIVER: Unremarkable. No gross lesion or ductal dilatation. GALLBLADDER AND BILE DUCTS: Unremarkable. PANCREAS: Unremarkable. No gross lesion or ductal dilatation. SPLEEN: Unremarkable. ADRENALS: Unremarkable. No mass. KIDNEYS AND URETERS: There is a staghorn calculus in the left renal pelvis measuring 27 x 30 mm. There is no evidence of hydronephrosis. There are no ureteral stones. There is a simple cyst in the left kidney. The right kidney is unremarkable VASCULATURE: Unremarkable. No aortic aneurysm. BOWEL: Unremarkable. No obstruction. No gross mural thickening. APPENDIX: Unremarkable. Normal appendix. PERITONEUM: Unremarkable. No free fluid. No free air. LYMPH NODES: Unremarkable. No enlarged lymph nodes. BLADDER: Unremarkable. REPRODUCTIVE: Unremarkable. BONES: Disc degeneration at L4-5 OTHER FINDINGS: None. IMPRESSION: Left-sided staghorn calculus. No evidence of hydronephrosis
--- NOTE | 2017-10-19 09:48 | RAD ---
HISTORY: left arm pain, no chest pain, left flank pain COMPARISON: No prior. TECHNIQUE: Chest PA and lateral FINDINGS: LUNGS: No active pulmonary disease. PLEURA: No significant pleural effusion identified. No pneumothorax apparent. CARDIOVASCULAR: Normal. OSSEOUS STRUCTURES: No significant abnormalities. VISUALIZED UPPER ABDOMEN: Normal. OTHER FINDINGS: None. IMPRESSION: No active disease.
[2017-10-19] MEDS ORDERED: HYDROmorphone 1 mg/ml ISec IVP STA (10:02)
[2017-10-19 13:14] VITALS: O2SAT 99
[2017-10-19 13:15] VITALS: PULSE 83; RESP 18
--- NOTE | 2017-10-19 16:52 | CARD ---
APPROVED REPORT EKG Measurement Heart [id number] <Conclusion> Marked sinus bradycardia Cannot rule out Inferior infarct, age undetermined Anteroseptal infarct, age undetermined T wave abnormality, consider lateral ischemia Abnormal ECG
== END 2017-10-19 13:20 | disposition left against medical advice (07) ==
LOC: ED 07:39 → ERH 10:01 → UNDOADMOB 10:01 → ERH 11:38
DX: R07.9 Chest pain, unspecified (principal); E87.0 Hyperosmolality and hypernatremia; N20.0 Calculus of kidney; N28.9 Disorder of kidney and ureter, unspecified; R10.9 Unspecified abdominal pain; I10 Essential (primary) hypertension
CPT/HCPCS: 71046; 74176; 80053; 82550; 83615; 83735; 83880; 84484; 85025; 85610; 85730; 93005; 96374; 99285; J2270; J7040

== ENCOUNTER 2017-11-12 08:17 | Emergency (ER) | payer BC ==
[2017-11-12 08:17] VITALS: BMI 46.0
[2017-11-12 08:30] VITALS: RESP 18; TEMP 98; O2SAT 100
--- NOTE | 2017-11-12 09:20 | ED PDOC ---
Arrival/HPI - General Chief Complaint: Back Pain Time Seen by Provider: 11/12/17 09:13 Historian: Patient - History of Present Illness Narrative History of Present Illness (Text): 11/12/17 09:15 This 52 yo male with pmh kidney stone, and hypertension, presents to this Emergency department complaining of left lower back pain x 1 day. Patient stating moving furniture at home. He said after he bent over he felt back pain. Denies heavy lifting, trauma, weakness, paersthesias, GI/ incontinence , saddle anesthesias, dizziness , urinary symptoms, or abnormal gait. Time/Duration: Other (see hpi) Quality: Aching Context: Home Past Medical History - Provider Review Nursing Documentation Reviewed: Yes - Past History Past History: No Previous - Infectious Disease Hx of Infectious Diseases: None - Tetanus Immunization Tetanus Immunization: Unknown - Past Medical History Past Medical History: No Previous - Cardiac Hx Cardiac Disorders: Yes (cp) Hx Hypertension: Yes Other/Comment: h/o cardiac cath 2017 - Pulmonary Hx Respiratory Disorders: No - Neurological Hx Neurological Disorder: No - HEENT Hx HEENT Disorder: (glasses/nearsighted and farsighted) Other/Comment: left eye sx age 11 pt stated "There was a white film over my eye causing impaired vision." Vision ok now - Renal Hx Kidney Stones: Yes (left lithotripsy 11 yrs ago) Other/Comment: pt recently dx with another left kidney stone - Endocrine/Metabolic Hx Endocrine Disorders: No - Hematological/Oncological Hx Blood Disorders: No - Integumentary Hx Dermatological Disorder: No - Musculoskeletal/Rheumatological Hx Back Pain: Yes (chronic left lower back) Hx Falls: No - Gastrointestinal Hx Gastrointestinal Disorders: Yes (obese) - Genitourinary/Gynecological Hx Genitourinary Disorders: Yes Hx Hematuria: Yes - Psychiatric Hx Psychophysiologic Disorder: No Hx Substance Use: No - Past Surgical History Past Surgical History: No Previous - Surgical History Hx Cardiac Catheterization: Yes Other/Comment: Left eye - Anesthesia Hx Anesthesia: Yes Hx Anesthesia Reactions: No - Suicidal Assessment Feels Threatened In Home Enviroment: No Family/Social History - Physician Review Nursing Documentation Reviewed: Yes Family/Social History: Other (noncontributory) Smoking Status: Never Smoked Hx Alcohol Use: No Hx Substance Use: No Hx Substance Use Treatment: No Allergies/Home Meds Allergies/Adverse Reactions: Allergies No Known Allergies Allergy (Verified 11/12/17 08:29) Home Medications: Home Meds Medication Instructions Recorded Confirmed amLODIPine [Norvasc] 10 mg PO DAILY 04/26/17 11/12/17 Losartan Potassium [Losartan 50 tab PO DAILY 10/12/17 11/12/17 Potassium] Review of Systems - Review of Systems Constitutional: Normal. absent: Fatigue, Weight Change, Fevers, Night Sweats Eyes: Normal ENT: Normal. absent: Sore Throat Respiratory: Normal. absent: SOB, Cough Cardiovascular: Normal. absent: Chest Pain, Palpitations Gastrointestinal: Normal. absent: Abdominal Pain, Nausea, Vomiting Genitourinary Male: Normal. absent: Dysuria, Frequency, Hematuria Musculoskeletal: Back Pain Skin: Normal. absent: Rash Neurological: Normal. absent: Headache, Dizziness, Focal Weakness, Gait Changes , Speech Changes, Facial Droop, Disequilibrium, Seizure Endocrine: Normal Hemo/Lymphatic: Normal Psychiatric: Normal Physical Exam Vital Signs Temp Pulse Resp BP Pulse Ox 11/12/17 08:27 98 F 51 L 18 171/94 H 100 Temperature: Afebrile Blood Pressure: Normal Pulse: Bradycardic Respiratory Rate: Normal Appearance: Positive for: Well-Appearing, Non-Toxic, Comfortable Pain Distress: None Mental Status: Positive for: Alert and Oriented X 3 - Systems Exam Head: Present: Atraumatic, Normocephalic Pupils: Present: PERRL Extroacular Muscles: Present: EOMI Conjunctiva: Present: Normal Mouth: Present: Moist Mucous Membranes Neck: Present: Normal Range of Motion Respiratory/Chest: Present: Clear to Auscultation, Good Air Exchange. No: Respiratory Distress, Accessory Muscle Use Cardiovascular: Present: Regular Rate and Rhythm, Normal S1, S2. No: Murmurs Abdomen: No: Tenderness, Distention, Peritoneal Signs Back: Present: Normal Inspection, Paraspinal Tenderness (Mild left paravertebral tenderness. No vertebral point tenderness. No vertebral point tenderness. No skin rash). No: CVA Tenderness, Midline Tenderness, Pain with Leg Raise Upper Extremity: Present: Normal Inspection, Normal ROM. No: Cyanosis, Edema Lower Extremity: Present: Normal Inspection, Normal ROM. No: Edema Neurological: Present: GCS=15, CN II-XII Intact, Speech Normal Skin: Present: Warm, Dry, Normal Color. No: Rashes Psychiatric: Present: Alert, Oriented x 3, Normal Insight, Normal Concentration Medical Decision Making ED Course and Treatment: 11/12/17 09:25 Re-evaluation. Patient feels better. Discussed results and plan with patient who expresses understanding. All questions answered and there is agreement with the plan to discharge home with instructions. Patient stable for discharge. Return if symptoms persist or worsen. Patient has a normal gait. No neuro focal deficits. Patient was recommended to rest for a couple of days and to be compliant with home meds. Patient did not take his hypertension meds today. Re-evaluation Time: 09:25 Reassessment Condition: Re-examined, Improved Disposition/Present on Arrival - Present on Arrival Any Indicators Present on Arrival: No History of DVT/PE: No History of Uncontrolled Diabetes: No Urinary Catheter: No History of Decub. Ulcer: No History Surgical Site Infection Following: None - Disposition Have Diagnosis and Disposition been Completed?: Yes Diagnosis: Back pain, Non compliance with medical treatment, Hypertension Disposition Time: 09:27 Patient Plan: Discharge Patient Problems: Current Active Problems Problem Status Onset Back pain Acute Non compliance with medical treatment Acute HTN (hypertension) Chronic Condition: IMPROVED Discharge Instructions (ExitCare): Low Salt Diet, Low Back Pain (DC) Additional Instructions: Call private doctor for follow up visit in 1-2 days. Take medication as instructed. Be compliant with ypur blood pressure medication. Avoid bending back, and flex legs instead. Return to Emergency department if pain worsen. Do not drive or operate machinery for at least 12 hours if you take Robaxin, muscle relaxer Prescriptions: Methocarbamol [Robaxin-750] 750 mg PO TID #21 tab Naproxen 500 mg PO BID PRN #14 tablet PRN Reason: Pain, Severe (8-10) Referrals: Sofi Jordan MD [Family Provider] - Follow up with primary Forms: [employer] (Mongolian), WORK NOTE
[2017-11-12 09:54] VITALS: BP 149/80; PULSE 79
== END 2017-11-12 09:53 | disposition home or self-care (01) ==
LOC: ED 08:17
DX: M54.5 Low back pain (principal); I10 Essential (primary) hypertension; Z91.19 Patient's noncompliance with other medical treatment and regimen
CPT/HCPCS: 96372; 99282; J1885

== ENCOUNTER 2017-11-21 07:58 | Emergency (ER) | payer BC ==
[2017-11-21 07:58] VITALS: BMI 46.0
[2017-11-21 08:35] VITALS: PULSE 60; RESP 18; TEMP 98.1; O2SAT 98
--- NOTE | 2017-11-21 08:42 | ED PDOC ---
Arrival/HPI - General Chief Complaint: Back Pain Time Seen by Provider: 11/21/17 08:41 Historian: Patient - History of Present Illness Narrative History of Present Illness (Text): 11/21/17 0855 pt p/w + left lower back pain, radiating across his lower back region after moving some house furniture around 2 days ago; pt states he felt a twinge and the pain was initially tolerable, now its worse; pt states pain is now 7-8/10; pt states no radiation of pain down his legs; pt denied fall/trauma/sick contact , no travel; pt denied fever/chills/sweats, no chest pain/shortness of breath/ palpitations, no abd pain, no n/v, no numbness/tingling, no urinary/bowel changes, no incontinence, no rectal/penile numbness/tingling, pt denied rashes; pt denied any bleeding; pt is here for further eval; pt's without other complaints. pt with similar right lower back pain in the past pt did not follow up PCP: Dr Jordan Time/Duration: < week (2days) Symptom Onset: Sudden Symptom Course: Unchanged, Worsening Quality: Tightness, Cramping Severity Level: Severe Activities at Onset: Other (walking) Context: Exertion, Home Past Medical History - Provider Review Nursing Documentation Reviewed: Yes - Travel History Have you recently traveled outside [place] w/in the past 3 mons?: No - Past History Past History: No Previous - Infectious Disease Hx of Infectious Diseases: None - Tetanus Immunization Tetanus Immunization: Unknown - Past Medical History Past Medical History: No Previous - Cardiac Hx Cardiac Disorders: Yes (cp) Hx Hypertension: Yes Other/Comment: h/o cardiac cath 2017 - Pulmonary Hx Respiratory Disorders: No - Neurological Hx Neurological Disorder: No - HEENT Hx HEENT Disorder: (glasses/nearsighted and farsighted) Other/Comment: left eye sx age 11 pt stated "There was a white film over my eye causing impaired vision." Vision ok now - Renal Hx Kidney Stones: Yes (left lithotripsy 11 yrs ago) Other/Comment: pt recently dx with another left kidney stone - Endocrine/Metabolic Hx Endocrine Disorders: No - Hematological/Oncological Hx Blood Disorders: No - Integumentary Hx Dermatological Disorder: No - Musculoskeletal/Rheumatological Hx Back Pain: Yes (chronic left lower back) Hx Falls: No - Gastrointestinal Hx Gastrointestinal Disorders: Yes (obese) - Genitourinary/Gynecological Hx Genitourinary Disorders: Yes Hx Hematuria: Yes - Psychiatric Hx Psychophysiologic Disorder: No Hx Substance Use: No - Past Surgical History Past Surgical History: No Previous - Surgical History Hx Cardiac Catheterization: Yes Other/Comment: Left eye - Anesthesia Hx Anesthesia: Yes Hx Anesthesia Reactions: No - Suicidal Assessment Feels Threatened In Home Enviroment: No Family/Social History - Physician Review Nursing Documentation Reviewed: Yes Family/Social History: Unknown Family HX Smoking Status: Never Smoked Hx Alcohol Use: No Hx Substance Use: No Hx Substance Use Treatment: No Allergies/Home Meds Allergies/Adverse Reactions: Allergies No Known Allergies Allergy (Verified 11/12/17 08:29) Home Medications: Home Meds Medication Instructions Recorded Confirmed amLODIPine [Norvasc] 10 mg PO DAILY 04/26/17 11/12/17 Losartan Potassium [Losartan 50 tab PO DAILY 10/12/17 11/12/17 Potassium] Review of Systems - Review of Systems Constitutional: Normal Eyes: Normal ENT: Normal Respiratory: Normal Cardiovascular: Normal. absent: Chest Pain Gastrointestinal: Normal. absent: Abdominal Pain, Nausea, Vomiting Genitourinary Male: Normal Musculoskeletal: Back Pain. absent: Neck Pain, Joint Swelling Skin: Normal Neurological: Normal Endocrine: Normal Hemo/Lymphatic: Normal Psychiatric: Normal Physical Exam - Physical Exam Narrative Physical Exam (Text): 11/21/17 General: alert/awake, GCS = 15, oriented x 3, sitting on a chair, uncomfortable , cooperative, interactive; mild distress due to pain Head: NC/AT EYE: PERRLA, EOMI, sclera anicteric, no nystagmus, no photophobia; visual field intact b/l Facial: WNL Oral: uvula/tongue are midline, no exudate/lesions, no drooling/stridor, no dysphonia; intact dentitions NECK: intact ROM, no midline tenderness, no nuchal rigidity, no meningeal signs ; no step off Chest: CTA b/l, no w/r/r; no tachypenia, no accessory muscle use noted Chest Wall: no crepitus, no lesions, no gross deformities, no focal tenderness Cardiac: +S1, +S2, no m/r/r, no tachycardia Abdominal: +BS, soft/nd/nt, well nourished/morbid obese patient; no masses/ rebound/guarding/rigidity; no kiran's sign, no mcburney's point tenderness Extremities: intact ROM except mild decr ROM to left leg, strength 5/5 grossly intact in all limbs, neurovasc intact b/l; + ambulatory, favoring left leg; reflex +2/2; + Left SLR at ~ 30-40degrees BACK: no step off, no midline tenderness, NO crepitus, no gross deformities noted; Intact ROM; + mild left lower back pain, no skin lesions noted SKIN: cap refill < 1 sec, no ulcerations, no petechiae, no rashes NEURO: CNII-XII WNL, no facial asymmetries, no slurr speech, oriented x 3 NIH stroke scale ~ 0 Psych: normal insight, normal affect; follows command with ease Vital Signs Reviewed: Yes Vital Signs Temp Pulse Resp BP Pulse Ox 11/21/17 08:31 98.1 F 60 18 168/98 H 98 Temperature: Afebrile Blood Pressure: Hypertensive Pulse: Regular Respiratory Rate: Normal Appearance: Positive for: Well-Appearing, Non-Toxic, Uncomfortable Pain Distress: None Mental Status: Positive for: Alert and Oriented X 3 - Systems Exam Head: Present: Atraumatic, Normocephalic Medical Decision Making ED Course and Treatment: 11/21/17 Impression: left lower back pain/strain i have consider all the differential diagnosis regarding pt's chief medical complaints/clinical findings, including but are not limited to: unlikely fx; likely strain A/P: left lower abck pain/strain - xray - supportive care - observe/reevaluation 1130am pt felt improvement, states pain is now 3-4/10 pt is awaiting L/S results vital signs improved pt remains able to ambulate 1220pm pt is made aware of his medical results pt is encouraged min weight bearing/avoid prolonged standing pt will follow up as directed pt will be discharged home Re-evaluation Time: 12:00 Reassessment Condition: Improving,but remains with symptoms - RAD Interpretation Narrative RAD Interpretations (Text): 11/21/17 10:40 Lumbar Spine x-ray: Creator : Claus Kapoor MD FINDINGS: BONES: Normal alignment. No listhesis. No fracture. DISC SPACES: Mild disc degeneration at L4-5 OTHER FINDINGS: None. IMPRESSION: Unremarkable radiographs of the lumbar spine. Radiology Orders: 11/21/17 08:59 LS SPINE AP/LAT [RAD] Stat Field Court Researcher: Radiologist - Medication Orders Current Medication Orders: Discontinued Medications Diazepam (Valium) 5 mg PO ONCE ONE PRN Reason: Protocol Stop: 11/21/17 09:01 Last Admin: 11/21/17 09:36 Dose: 5 mg Ketorolac Tromethamine (Toradol) 30 mg IM STAT STA Stop: 11/21/17 09:00 Last Admin: 11/21/17 09:35 Dose: 30 mg MAR Pain Assessment Document 11/21/17 09:35 EQ (Rec: 11/21/17 09:36 EQ [id number]) Pain Reassessment Is this a pain reassessment? No Sleep Is patient sleeping during reassessment? No Presence of Pain Presence of Pain Yes Pain Scale Used Pain Scale Used Numeric IM Administration Charges Document 11/21/17 09:35 EQ (Rec: 11/21/17 09:36 EQ [id number]) Charges for Administration # of IM Administrations 1 Oxycodone/Acetaminophen (Percocet 5/325 Mg Tab) 1 tab PO STAT STA Stop: 11/21/17 09:01 Last Admin: 11/21/17 09:36 Dose: 1 tab MAR Pain Assessment Document 11/21/17 09:36 EQ (Rec: 11/21/17 09:36 EQ [id number]) Pain Reassessment Is this a pain reassessment? No Sleep Is patient sleeping during reassessment? No Presence of Pain Presence of Pain Yes - Scribe Statement The provider has reviewed the documentation as recorded by the Alix Ferris Provider Scribe Attestation: All medical record entries made by the Scribe were at my direction and personally dictated by me. I have reviewed the chart and agree that the record accurately reflects my personal performance of the history, physical exam, medical decision making, and the department course for this patient. I have also personally directed, reviewed, and agree with the discharge instructions and disposition. Disposition/Present on Arrival - Present on Arrival Any Indicators Present on Arrival: No History of DVT/PE: No History of Uncontrolled Diabetes: No Urinary Catheter: No History of Decub. Ulcer: No History Surgical Site Infection Following: None - Disposition Have Diagnosis and Disposition been Completed?: Yes Diagnosis: Lumbar strain Disposition: HOME/ ROUTINE Disposition Time: 12:25 Patient Plan: Discharge Patient Problems: Current Active Problems Problem Status Onset Lumbar strain Acute Condition: STABLE Discharge Instructions (ExitCare): Low Back Pain in Adults Print Language: [place] Additional Instructions: Make sure to see your doctor in 1-2 days DRINK PLENTY OF FLUIDS take your medications as prescribed AVOID heavy lifting AVOID prolonged standing/walking RETURN TO ED IF worse pain, cant breath, persistent vomiting, high fever >101- 102 for hours, altered behavior, slurr speech, facial changes, focal weakness ( arm/leg or both), unable to urinate, heavy/persistent bleeding, passing out, chest pain, or other medical emergencies Prescriptions: diaZEpam [Valium] 5 mg PO TID PRN #10 tab PRN Reason: Muscle Spasm Ibuprofen [Motrin] 600 mg PO QID PRN #30 tab PRN Reason: Pain, Mild (1-3) oxyCODONE/Acetaminophen [Percocet 5/325 mg Tab] 1 tab PO TID PRN #10 tab PRN Reason: Pain, Moderate (4-7) Referrals: Carlos Long MD [Staff Provider] - Follow up with primary Sofi Jordan MD [Family Provider] - Follow up with primary [employer] [place] [Outside] - Follow up with primary [facility] [Outside] - Follow up with primary [facility] [place] [Outside] - Follow up with primary Forms: [employer] (Macanese), WORK NOTE
[2017-11-21] MEDS ORDERED: Oxycodone/Acetaminophen 5/325 mg Tab PO STA (09:00)
--- NOTE | 2017-11-21 10:36 | RAD ---
PROCEDURE: Radiographs of the Lumbar Spine. HISTORY: left lower back pain, no trauma COMPARISON: No prior. FINDINGS: BONES: Normal alignment. No listhesis. No fracture. DISC SPACES: Mild disc degeneration at L4-5 OTHER FINDINGS: None. IMPRESSION: Unremarkable radiographs of the lumbar spine.
[2017-11-21 12:39] VITALS: BP 158/86
== END 2017-11-21 13:00 | disposition home or self-care (01) ==
LOC: ED 07:58
DX: S39.012A Strain of muscle, fascia and tendon of lower back, initial encounter (principal); X50.0XXA Overexertion from strenuous movement or load, initial encounter; Y93.E9 Activity, other interior property and clothing maintenance; Y92.009 Unspecified place in unspecified non-institutional (private) residence as the place of occurrence of the external cause
CPT/HCPCS: 72100; 96372; 99282; J1885

== ENCOUNTER 2017-11-28 17:00 | Emergency (ER) | payer BC ==
[2017-11-28 17:01] VITALS: BMI 46.0
--- NOTE | 2017-11-28 17:25 | ED PDOC ---
Arrival/HPI - General Chief Complaint: Altered Mental Status Time Seen by Provider: 11/28/17 17:02 Historian: Patient, Spouse - History of Present Illness Narrative History of Present Illness (Text): you were treated in the ED today for feeling some dizziness, and then stumbled with initially feeling out of sorts and then now feeling improved and otherwise without any nausea/vomiting/headache/dizziness/difficulty breathing/chest pain/ abdomen pain/numbness/tingling/loss of limb function/pain with urination. 11/28/17 17:22 Time/Duration: 1-3 hours Symptom Onset: Gradual Symptom Course: Improving Quality: Other (no pain) Activities at Onset: Rest Context: Standing Past Medical History - Provider Review Nursing Documentation Reviewed: Yes - Travel History Have you recently traveled outside [place] w/in the past 3 mons?: No - Past History Past History: No Previous - Infectious Disease Hx of Infectious Diseases: None - Tetanus Immunization Tetanus Immunization: Unknown - Past Medical History Past Medical History: No Previous - Cardiac Hx Cardiac Disorders: Yes (cp) Hx Hypertension: Yes Other/Comment: h/o cardiac cath 2017 - Pulmonary Hx Respiratory Disorders: No - Neurological Hx Neurological Disorder: No - HEENT Hx HEENT Disorder: (glasses/nearsighted and farsighted) Other/Comment: left eye sx age 11 pt stated "There was a white film over my eye causing impaired vision." Vision ok now - Renal Hx Kidney Stones: Yes (left lithotripsy 11 yrs ago) Other/Comment: pt recently dx with another left kidney stone - Endocrine/Metabolic Hx Endocrine Disorders: No - Hematological/Oncological Hx Blood Disorders: No - Integumentary Hx Dermatological Disorder: No - Musculoskeletal/Rheumatological Hx Back Pain: Yes (chronic left lower back) Hx Falls: No - Gastrointestinal Hx Gastrointestinal Disorders: Yes (obese) - Genitourinary/Gynecological Hx Genitourinary Disorders: Yes Hx Hematuria: Yes - Psychiatric Hx Psychophysiologic Disorder: No Hx Substance Use: No - Past Surgical History Past Surgical History: No Previous - Surgical History Hx Cardiac Catheterization: Yes Other/Comment: Left eye - Anesthesia Hx Anesthesia: Yes Hx Anesthesia Reactions: No - Suicidal Assessment Feels Threatened In Home Enviroment: No Family/Social History - Physician Review Nursing Documentation Reviewed: Yes Family/Social History: No Known Family HX Smoking Status: Never Smoked Hx Alcohol Use: No Hx Substance Use: No Hx Substance Use Treatment: No Allergies/Home Meds Allergies/Adverse Reactions: Allergies No Known Allergies Allergy (Verified 11/12/17 08:29) Home Medications: Home Meds Medication Instructions Recorded Confirmed amLODIPine [Norvasc] 10 mg PO DAILY 04/26/17 11/12/17 Losartan Potassium [Losartan 50 tab PO DAILY 10/12/17 11/12/17 Potassium] Review of Systems - Review of Systems Constitutional: Normal Eyes: Normal ENT: Normal Respiratory: Normal Cardiovascular: Normal Gastrointestinal: Normal Genitourinary Male: Normal Musculoskeletal: Normal Skin: Normal Neurological: Normal Endocrine: Normal Hemo/Lymphatic: Normal Physical Exam Vital Signs Reviewed: Yes Vital Signs Temp Pulse Resp BP Pulse Ox 11/28/17 19:59 98.1 F 11/28/17 17:39 83 16 130/98 H 98 Appearance: Positive for: Well-Appearing, Non-Toxic, Comfortable Pain Distress: None Mental Status: Positive for: Alert and Oriented X 3 Finger Stick Blood Glucose: 92 - Systems Exam Head: Present: Atraumatic, Normocephalic Pupils: Present: PERRL Extroacular Muscles: Present: EOMI Conjunctiva: Present: Normal Ears: Present: Normal Mouth: Present: Moist Mucous Membranes Pharnyx: Present: Normal Nose (External): Present: Atraumatic Nose (Internal): Present: Normal Inspection Neck: Present: Normal Range of Motion Respiratory/Chest: Present: Clear to Auscultation, Good Air Exchange Cardiovascular: Present: Regular Rate and Rhythm Abdomen: No: Tenderness, Distention, Normal Bowel Sounds, Peritoneal Signs, Rebound, Guarding, McBurney's Point Tender, Rovsing's Sign Present, Hernias, Feeding Tubes, Ostomy Tubes, Mass/Organomegaly, Scars, Other Back: Present: Normal Inspection Upper Extremity: Present: Normal Inspection Lower Extremity: Present: Normal Inspection Neurological: Present: GCS=15, CN II-XII Intact, Speech Normal, Motor Func Grossly Intact Skin: Present: Warm, Normal Color Psychiatric: Present: Alert, Oriented x 3, Normal Insight, Normal Concentration Medical Decision Making ED Course and Treatment: you were treated in the ED today for feeling some dizziness, and then stumbled with initially feeling out of sorts and then now feeling improved and otherwise without any nausea/vomiting/headache/dizziness/difficulty breathing/chest pain/ abdomen pain/numbness/tingling/loss of limb function/pain with urination. You were otherwise breathing easily, smiling with your and talking easily, good strength/sensation, walking, clear lungs, no abdomen tenderness, skin pink , no fever temp 98.1, stable heart rate 83, stable breathing rate 16, excellent oxygen level 98% room air, elevated blood pressure 130/98 which we recommend repeat in 2-3 days primary care office to determine further treatment, you have blood tests no infection count 8, stable blood level hemoglobin 13/platelets 243 , stable chemistry, heart blood test 0.05, urine test no acute sign of infection , ct head radiologySignificant chronic white matter ischemic changes. Chronic bilateral basal nuclei lacunar type infarcts. Note that the possibility of a small hyperacute infarct cannot be excluded on this exam., ECG normal sinus rhythm similar to prior, observation done in the ED with improvement, discussed with Dr. Jordan who stated she is willing to admit you to the hospital for further care/observation but you refused to stay in the hospital further for observation/care and cautioned for complications/ and thus you wanted to go home with your family. 1. Recommend follow-up primary care 1 day to review symptoms, referral to neurology clinic to review y your symptoms, referral to cardiology to review your symptoms, referral to urology for on-going kidney function elevation 2.2 today which is similar to prior 2.3/blood and protein in urine and thus recommend urology/nephrology referral to ensure further care and no worsening. 2. If any worsening pain, fever, chills, nausea, vomiting, difficulty breathing, numbness, loss of limb function, pain with urination or any medical condition then return to the ED. 11/28/17 19:15 11/28/2017 18:[address] IMPRESSION: Significant chronic white matter ischemic changes. Chronic bilateral basal nuclei lacunar type infarcts. Note that the possibility of a small hyperacute infarct cannot be excluded on this exam. Dictator: Kendall Munoz DO Reassessment Condition: Re-examined, Improved - Lab Interpretations Lab Results: 11/28/17 17:30 11/28/17 17:30 Lab Results 11/28/17 18:00: Urine Color Yellow, Urine Appearance Sl cloudy, Urine pH 6.0, Ur Specific [place] 1.025, Urine Protein >=300 H, Urine Glucose (UA) Negative, Urine Ketones Negative, Urine Blood Large H, Urine Nitrate Negative, Urine Bilirubin Negative, Urine Urobilinogen 0.2, Ur Leukocyte Esterase Negative, Urine RBC Tntc, Urine WBC 10 - 15, Ur Epithelial Cells 4 - 5, Urine Bacteria Mod 11/28/17 17:30: Sodium 145, Potassium 4.1, Chloride 110 H, Carbon Dioxide 23, Anion Gap 16, BUN 18, Creatinine 2.2 H, Est GFR ( Amer) 38, Est GFR (Non- Af Amer) 31, Random Glucose 97, Calcium 9.2, Magnesium 1.7, Total Bilirubin 0.6 , AST 22, ALT 31, Alkaline Phosphatase 68, Lactate Dehydrogenase 408, Total Creatine Kinase 91, Troponin I 0.05 D, Total Protein 8.1, Albumin 4.0, Globulin 4.1, Albumin/Globulin Ratio 1.0 L 11/28/17 17:30: PT 12.2, INR 1.07, APTT 33.3 11/28/17 17:30: WBC 8.4, RBC 4.48, Hgb 13.4 L, Hct 39.2 L, MCV 87.5 D, MCH 29.9 , MCHC 34.2, RDW 12.9, Plt Count 243, MPV 9.4, Gran % 59.6, Lymph % (Auto) 29.8 , [place] % (Auto) 8.4 H, Eos % (Auto) 2.0, Baso % (Auto) 0.2, Gran # 5.02, Lymph # (Auto) 2.5, [place] # (Auto) 0.7 H, Eos # (Auto) 0.2, Baso # (Auto) 0.02 11/28/17 17:09: POC Glucose (mg/dL) 92 I have reviewed the lab results: Yes - RAD Interpretation Radiology Orders: 11/28/17 17:21 HEAD W/O CONTRAST [CT] Stat - EKG Interpretation Interpreted by ED Physician: Yes (NSR) Type: 12 lead EKG Comparison: Similar to previous EKG (10/19/17) NIHSS Stroke Scale 3 - Date/Time Evaluation Performed Date Performed: 11/28/17 When Was NIHSS Performed: Baseline - How Severe is the Stroke Level of Consciousness: 0=Alert LOC to Questions: 0=Both comments correct LOC to commands: 0=Obeys both correctly Best Gaze: 0=Normal Visual: 0=No visual loss Facial: 0=Normal Motor Arm - Left: 0=No drift Motor Arm - Right: 0=No drift Motor Leg - Left: 0=No drift Motor Leg - Right: 0=No drift Limb Ataxia: 0=Absent Sensory: 0=Normal Best Language: 0=No aphasia Dysarthia: 0=Normal articulation Extinction & Inattention (Neglect): 0=Normal, no object Score: 0 Disposition/Present on Arrival - Present on Arrival Any Indicators Present on Arrival: No History of DVT/PE: No History of Uncontrolled Diabetes: No Urinary Catheter: No History of Decub. Ulcer: No History Surgical Site Infection Following: None - Disposition Have Diagnosis and Disposition been Completed?: Yes Diagnosis: Dizziness Disposition: AGAINST MEDICAL ADVICE Disposition Time: 20:02 Condition: IMPROVED Discharge Instructions (ExitCare): Dizziness, Nonvertigo, (DC) Additional Instructions: you were treated in the ED today for feeling some dizziness, and then stumbled with initially feeling out of sorts and then now feeling improved and otherwise without any nausea/vomiting/headache/dizziness/difficulty breathing/chest pain/ abdomen pain/numbness/tingling/loss of limb function/pain with urination. You were otherwise breathing easily, smiling with your and talking easily, good strength/sensation, walking, clear lungs, no abdomen tenderness, skin pink , no fever temp 98.1, stable heart rate 83, stable breathing rate 16, excellent oxygen level 98% room air, elevated blood pressure 130/98 which we recommend repeat in 2-3 days primary care office to determine further treatment, you have blood tests no infection count 8, stable blood level hemoglobin 13/platelets 243 , stable chemistry, heart blood test 0.05, urine test no acute sign of infection , ct head radiologySignificant chronic white matter ischemic changes. Chronic bilateral basal nuclei lacunar type infarcts. Note that the possibility of a small hyperacute infarct cannot be excluded on this exam., ECG normal sinus rhythm similar to prior, observation done in the ED with improvement, discussed with Dr. Jordan who stated she is willing to admit you to the hospital for further care/observation but you refused to stay in the hospital further for observation/care and cautioned for complications/ and thus you wanted to go home with your family. 1. Recommend follow-up primary care 1 day to review symptoms, referral to neurology clinic to review y your symptoms, referral to cardiology to review your symptoms, referral to urology for on-going kidney function elevation 2.2 today which is similar to prior 2.3/blood and protein in urine and thus recommend urology/nephrology referral to ensure further care and no worsening. 2. If any worsening pain, fever, chills, nausea, vomiting, difficulty breathing, numbness, loss of limb function, pain with urination or any medical condition then return to the ED. Forms: [employer] (Pashto)
[2017-11-28 17:43] LABS: BASO # 0.02 K/mm3 (0.0-2.0); BASO % 0.2 % (0.0-3.0); EOS # 0.2 (0.0-0.7); GRAN # 5.02 (1.4-6.5); GRAN % 59.6 % (50.0-68.0); HEMOGLOBIN 13.4 g/dL (14.0-18.0); LYMPH # 2.5 (1.2-3.4); LYMPH % 29.8 % (22.0-35.0); MEAN CELL VOLUME 87.5 fl (80.0-105.0); MEAN CORPUSCULAR HEMOGLOBIN 29.9 pg (25.0-35.0); MEAN CORPUSCULAR HGB CONC 34.2 g/dl (31.0-37.0); MEAN PLATELET VOLUME 9.4 fl (7.0-11.0); MONO # 0.7 (0.1-0.6); MONO % 8.4 % (1.0-6.0); RBC 4.48 10^6/uL (3.5-6.1); RED CELL DISTRIBUTION WIDTH 12.9 % (11.5-14.5); WHITE BLOOD COUNT 8.4 10^3/ul (4.5-11.0)
[2017-11-28 17:54] LABS: CALCIUM 9.2 mg/dL (8.4-10.5)
[2017-11-28 17:55] LABS: INR 1.07 (0.93-1.08); PROTHROMBIN TIME 12.2 SECONDS (9.4-12.5)
[2017-11-28 17:56] LABS: PARTIAL THROMBOPLASTIN TIME 33.3 Seconds (25.1-36.5)
[2017-11-28 18:05] LABS: TROPONIN I 0.05 ng/mL
[2017-11-28 18:18] LABS: URINE BILIRUBIN NEGATIVE (NEGATIVE); URINE BLOOD LARGE (NEGATIVE); URINE GLUCOSE (UA) NEGATIVE (NEGATIVE); URINE LEUKOCYTE ESTERASE NEGATIVE Leu/uL (NEGATIVE); URINE PROTEIN >=300 mg/dL (<30 mg/dL); URINE UROBILINOGEN 0.2 E.U./dL (<1 E.U./dL)
[2017-11-28 18:21] LABS: URINE APPEARANCE SL CLOUDY (CLEAR); URINE COLOR YELLOW (YELLOW)
[2017-11-28 18:32] LABS: URINE RBC TNTC /hpf (0-2)
[2017-11-28 18:33] LABS: URINE BACTERIA MOD (NEG)
--- NOTE | 2017-11-28 18:57 | CT ---
PROCEDURE: CT HEAD WITHOUT CONTRAST. HISTORY: 52yoM, dizziness COMPARISON: None available. TECHNIQUE: Axial computed tomography images were obtained through the head/brain without intravenous contrast. Radiation dose: Total exam DLP = 910.46 mGy-cm. This CT exam was performed using one or more of the following dose reduction techniques: Automated exposure control, adjustment of the mA and/or kV according to patient size, and/or use of iterative reconstruction technique. FINDINGS: HEMORRHAGE: No acute parenchymal, subarachnoid or extra-axial hemorrhage. BRAIN: There are fairly significant chronic appearing deep and subcortical and lesser periventricular white matter ischemic changes. There are also scattered chronic bilateral basal nuclei lacunar type infarcts. Note that the possibility of a small hyperacute infarct cannot be completely excluded. . No obvious parenchymal nor extra-axial mass or collection seen on this noncontrast study. Mild moderate generalized volume loss. VENTRICLES: No obstructive hydrocephalus. CALVARIUM: Calvarium intact. PARANASAL SINUSES: Unremarkable as visualized. No significant inflammatory changes. MASTOID AIR CELLS: Unremarkable as visualized. No inflammatory changes. OTHER FINDINGS: Orbits and contents unremarkable. The IMPRESSION: Significant chronic white matter ischemic changes. Chronic bilateral basal nuclei lacunar type infarcts. Note that the possibility of a small hyperacute infarct cannot be excluded on this exam.
[2017-11-28 19:40] VITALS: RESP 16
[2017-11-28 19:59] VITALS: TEMP 98.1
[2017-11-28 21:15] VITALS: BP 136/82; PULSE 80
[2017-11-28 21:18] VITALS: O2SAT 99
--- NOTE | 2017-11-29 22:27 | CARD ---
APPROVED REPORT EKG Measurement Heart [id number] <Conclusion> Normal sinus rhythm Anteroseptal infarct, age undetermined T wave abnormality, consider lateral ischemia Abnormal ECG
== END 2017-11-28 20:15 | disposition left against medical advice (07) ==
LOC: ED 17:00
DX: R42 Dizziness and giddiness (principal); I10 Essential (primary) hypertension

== ENCOUNTER 2018-03-28 07:36 | Emergency (ER) | payer BC ==
[2018-03-28 07:36] VITALS: BMI 46.0
[2018-03-28 07:53] VITALS: RESP 17
[2018-03-28] MEDS ORDERED: Sodium Chloride 0.9% 1,000 ML IV STA (07:59)
--- NOTE | 2018-03-28 07:59 | ED PDOC ---
Arrival/HPI - General Chief Complaint: Dizziness/Lightheaded Time Seen by Provider: 03/28/18 07:58 Historian: Patient - History of Present Illness Narrative History of Present Illness (Text): 52 y/o M / PMH of CAD s/p stents , hypertension, hyperlipidemia, and kidney stones presenting to the emergency department complaining of dizziness associated with chest pain and shortness of breath 1-2 hours ago after taking his blood pressure medication. He states he felt like he was experiencing a presyncopal episode, but denies any loss of consciousness. He states he was unable to attend work and had his brother drop him off at the hospital for further evaluation. He admits similar symptoms in the past. Patient denies any chest pain or shortness of breath, fever, chills, abdominal pain, nausea, vomiting, diarrhea, urinary symptoms, back pain, neck pain, headache, trouble walking, or any other complaints. PMD: Dr. Rivera Urologist: Dr Sifuentes Time/Duration: 1-3 hours Symptom Onset: Sudden Symptom Course: Intermittent Activities at Onset: Rest Context: Home Past Medical History - Provider Review Nursing Documentation Reviewed: Yes - Travel History Have you recently traveled outside [place] w/in the past 3 mons?: No - Past History Past History: No Previous - Infectious Disease Hx of Infectious Diseases: None - Tetanus Immunization Tetanus Immunization: Unknown - Past Medical History Past Medical History: No Previous - Cardiac Hx Cardiac Disorders: Yes (cp) Hx Hypertension: Yes Other/Comment: h/o cardiac cath 2017 - Pulmonary Hx Respiratory Disorders: No - Neurological Hx Neurological Disorder: No - HEENT Hx HEENT Disorder: (glasses/nearsighted and farsighted) Other/Comment: left eye sx age 11 pt stated "There was a white film over my eye causing impaired vision." Vision ok now - Renal Hx Kidney Stones: Yes (left lithotripsy 11 yrs ago) Other/Comment: pt recently dx with another left kidney stone - Endocrine/Metabolic Hx Endocrine Disorders: No - Hematological/Oncological Hx Blood Disorders: No - Integumentary Hx Dermatological Disorder: No - Musculoskeletal/Rheumatological Hx Back Pain: Yes (chronic left lower back) Hx Falls: No - Gastrointestinal Hx Gastrointestinal Disorders: Yes (obese) - Genitourinary/Gynecological Hx Genitourinary Disorders: Yes Hx Hematuria: Yes - Psychiatric Hx Psychophysiologic Disorder: No Hx Substance Use: No - Past Surgical History Past Surgical History: No Previous - Surgical History Hx Cardiac Catheterization: Yes Other/Comment: Left eye - Anesthesia Hx Anesthesia: Yes Hx Anesthesia Reactions: No - Suicidal Assessment Feels Threatened In Home Enviroment: No Family/Social History - Physician Review Nursing Documentation Reviewed: Yes Family/Social History: No Known Family HX Smoking Status: Never Smoked Hx Alcohol Use: No Hx Substance Use: No Hx Substance Use Treatment: No Allergies/Home Meds Allergies/Adverse Reactions: Allergies No Known Allergies Allergy (Verified 11/12/17 08:29) Home Medications: Home Meds Medication Instructions Recorded Confirmed amLODIPine [Norvasc] 10 mg PO DAILY 04/26/17 11/12/17 Losartan Potassium 50 tab PO DAILY 10/12/17 11/12/17 Review of Systems - Physician Review All systems were reviewed & negative as marked: Yes - Review of Systems Constitutional: absent: Fevers, Other (Chills) Respiratory: SOB Cardiovascular: Chest Pain Gastrointestinal: absent: Abdominal Pain, Diarrhea, Nausea, Vomiting Genitourinary Male: absent: Dysuria, Frequency, Hematuria Musculoskeletal: absent: Back Pain, Neck Pain Neurological: Dizziness. absent: Headache, Gait Changes Physical Exam Vital Signs Reviewed: Yes Vital Signs Temp Pulse Resp BP Pulse Ox 03/28/18 07:51 98.3 F 81 17 170/79 H 98 03/28/18 07:42 90 18 170/79 H 98 Temperature: Afebrile Blood Pressure: Hypertensive Pulse: Regular Respiratory Rate: Normal Appearance: Positive for: Well-Appearing, Non-Toxic, Comfortable Pain Distress: None Mental Status: Positive for: Alert and Oriented X 3 Finger Stick Blood Glucose: 169 - Systems Exam Head: Present: Atraumatic, Normocephalic Pupils: Present: PERRL Extroacular Muscles: Present: EOMI Conjunctiva: Present: Normal Mouth: Present: Moist Mucous Membranes Neck: Present: Normal Range of Motion Respiratory/Chest: Present: Clear to Auscultation, Good Air Exchange. No: Respiratory Distress, Accessory Muscle Use Cardiovascular: Present: Regular Rate and Rhythm, Normal S1, S2. No: Murmurs Abdomen: No: Tenderness, Distention, Peritoneal Signs Back: Present: Normal Inspection Upper Extremity: Present: Normal Inspection. No: Cyanosis, Edema Lower Extremity: Present: Normal Inspection. No: Edema Neurological: Present: GCS=15, CN II-XII Intact, Speech Normal Skin: Present: Warm, Dry, Normal Color. No: Rashes Psychiatric: Present: Alert, Oriented x 3, Normal Insight, Normal Concentration Medical Decision Making ED Course and Treatment: 03/28/18 07:59 Impression: 52 year old male presents complaining of dizziness associated with chest pain and shortness of breath after taking his blood pressure medication 1-2 hours ago. Differential Diagnosis included but are not limited to: hypertension urgency TIA stroke Depression Plan: --Head CT w/o contrast --Antivert --Urine Drug Screen -- EKG -- Labs -- Chest X-ray -- Apresoline --Keflex --IV Fluids --Urinalysis --Reassess and disposition Prior Visits: Notes and results from previous visits were reviewed. Patient was last seen in the emergency department on 11/28/17 presents complaining of dizziness. Patient left against medical advice. Progress Notes: 03/28/18 08:15 called and states patient goes out and does not return home or does not report to work all the time. Patient saw Dr. Caballero neurologist last week who did not find anything on exam. is concerned for possible depression and wants to rule out psychiatric consult. 03/28/18 09:58 CTH reveals age-related changes with no intracranial abnormalities. Patient reevaluated and states he still feels dizzy. Discussion on need for psychiatric consult with patient admantly refusing. Chemistries reviewed with creatinine noted to be elevated to 2.5. Patient notified of findings and reports having 3 urological surgeries to remove obstructive kidney stones within the last 3 months. Will check baseline kidney function. Pending UA. Blood pressure 135/70 03/28/18 10:46 Spoke to patient's who suspects patient may be dizzy as a result of his high anti-hyperhytensive dosages and requests for patient to have transport arranged to his house. She requests a patient patient strategic partnership representative Desiree or Sean to be consulted to assist with services back home. Patient's also mentions patient has another upcoming urologic surgery in the incoming month. Shared decision making with regarding patient's ability to stay in the hospital for further monitoring with her requesting patient to be discharged home and will follow up with his PCP. Patient updated on plan and is in agreement. 03/28/18 11:06 UA reviewed with nitrites positive. Patient asymptomatic at this time, but will be treated with oral Keflex. Voucher for transport home arranged with called back and notified of patient's departure. Patient updated on plan and will follow up with his PCP. He is stable for discharge. - Lab Interpretations Lab Results: Lab Results 03/28/18 07:44: POC Glucose (mg/dL) 169 H I have reviewed the lab results: Yes - RAD Interpretation Narrative RAD Interpretations (Text): PROCEDURE: CT HEAD WITHOUT CONTRAST Dictator : Jannette Barrett MD Report Date : 03/28/2018 09:27:29 IMPRESSION: No acute intracranial abnormality. 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 Moderate chronic microangiopathic changes and mild age-related global parenchymal volume loss. PROCEDURE: CXR Dictator : Jannette Barrett MD Report Date : 03/28/2018 09:59:28 IMPRESSION: No active pulmonary disease. Fire Protection Engineering Technician: Radiologist - EKG Interpretation EKG Interpretation (Text): 03/28/18 07:47 EKG shows NSR at 88 BPM with flipped T-wave on V5, V6, and AVL, Q-wave on V3 and lead ii. No stead ST elevations. Interpreted by me. Interpreted by ED Physician: Yes Type: 12 lead EKG - Scribe Statement The provider has reviewed the documentation as recorded by the Vinceibe Travon Turner Provider Scribe Attestation: All medical record entries made by the Scribe were at my direction and personally dictated by me. I have reviewed the chart and agree that the record accurately reflects my personal performance of the history, physical exam, medical decision making, and the department course for this patient. I have also personally directed, reviewed, and agree with the discharge instructions and disposition. Disposition/Present on Arrival - Present on Arrival Any Indicators Present on Arrival: No History of DVT/PE: No History of Uncontrolled Diabetes: No Urinary Catheter: No History of Decub. Ulcer: No History Surgical Site Infection Following: None - Disposition Have Diagnosis and Disposition been Completed?: Yes Diagnosis: Hypertensive urgency Disposition: HOME/ ROUTINE Disposition Time: 11:12 Patient Plan: Discharge Patient Problems: Current Active Problems Problem Status Onset Hypertensive urgency Acute Condition: IMPROVED Discharge Instructions (ExitCare): High Blood Pressure (DC) Additional Instructions: All medical record entries made by the Scribe were at my direction and personally dictated by me. I have reviewed the chart and agree that the record accurately reflects my personal performance of the history, physical exam, medical decision making, and the department course for this patient. I have also personally directed, reviewed, and agree with the discharge instructions and disposition. Please report to medical records in the next 24-48hrs for a copy of your records as requested Please take antibiotics as prescribed Please follow up with your PCP in 1-2 days and review your prescription medications. Prescriptions: Cephalexin [cephalexin] 500 mg PO BID 5 Days #10 cap Referrals: Whitney Tovar MD [Medical Doctor] - Follow up with primary [facility] at [facility] [place] [Outside] - Follow up with primary Forms: [facility] [facility] (Turkish), WORK NOTE
[2018-03-28 08:49] LABS: BASO # 0.01 K/mm3 (0.0-2.0); BASO % 0.2 % (0.0-3.0); EOS # 0.1 (0.0-0.7); EOS % 1.6 % (1.5-5.0); GRAN % 62.9 % (50.0-68.0); HEMOGLOBIN 13.7 g/dL (14.0-18.0); LYMPH # 1.8 (1.2-3.4); LYMPH % 28.8 % (22.0-35.0); MEAN CELL VOLUME 91.8 fl (80.0-105.0); MEAN CORPUSCULAR HEMOGLOBIN 30.3 pg (25.0-35.0); MEAN PLATELET VOLUME 10.1 fl (7.0-11.0); MONO # 0.4 (0.1-0.6); MONO % 6.5 % (1.0-6.0); RBC 4.52 10^6/uL (3.5-6.1); RED CELL DISTRIBUTION WIDTH 12.7 % (11.5-14.5); WHITE BLOOD COUNT 6.4 10^3/ul (4.5-11.0)
[2018-03-28 09:03] LABS: ACETAMINOPHEN < 10.0 ug/ml (10.0-20.0); ALBUMIN 3.9 g/dL (3.0-4.8); CALCIUM 9.2 mg/dL (8.4-10.5); SALICYLATE < 1 mg/dL (2.0-20.0)
[2018-03-28 09:14] LABS: TROPONIN I 0.05 ng/mL
[2018-03-28 09:20] LABS: FREE T4 0.97 ng/dL (0.78-2.19)
--- NOTE | 2018-03-28 09:31 | CT ---
Date of service: 03/28/2018 PROCEDURE: CT HEAD WITHOUT CONTRAST. HISTORY: dizziness COMPARISON: 11/28/2017. TECHNIQUE: Axial computed tomography images were obtained through the head/brain without intravenous contrast. Radiation dose: Total exam DLP = 846.88 mGy-cm. This CT exam was performed using one or more of the following dose reduction techniques: Automated exposure control, adjustment of the mA and/or kV according to patient size, and/or use of iterative reconstruction technique. FINDINGS: HEMORRHAGE: No intracranial hemorrhage. BRAIN: There are old lacunar infarctions in the right caudate head, right basal ganglia and left caudate head. There are moderate chronic microangiopathic changes. There is no mass, mass effect or abnormal extra-axial fluid collection. There is no territorial infarction. The midline sagittal structures are normal. VENTRICLES: There is mild age-related global parenchymal volume loss and proportionate enlargement of the ventricles and cortical sulci. CALVARIUM: The skull base and calvarium are normal. PARANASAL SINUSES: Predominantly clear. MASTOID AIR CELLS: Predominantly clear. OTHER FINDINGS: The globes are symmetric and normal in appearance. IMPRESSION: No acute intracranial abnormality. 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 Moderate chronic microangiopathic changes and mild age-related global parenchymal volume loss.
--- NOTE | 2018-03-28 10:03 | RAD ---
Date of service: 03/28/2018 HISTORY: chest pain COMPARISON: 10/19/2017 FINDINGS: LUNGS: The lungs are well inflated and clear. PLEURA: No pleural effusions or pneumothorax. CARDIOVASCULAR: The heart is normal in size. No aortic atherosclerotic calcification present. OSSEOUS STRUCTURES: Within normal limits for the patient's age. VISUALIZED UPPER ABDOMEN: Normal. OTHER FINDINGS: None. IMPRESSION: No active pulmonary disease.
[2018-03-28 10:54] LABS: URINE BILIRUBIN NEGATIVE (NEGATIVE); URINE BLOOD MODERATE (NEGATIVE); URINE GLUCOSE (UA) NEGATIVE (NEGATIVE); URINE LEUKOCYTE ESTERASE SMALL Leu/uL (NEGATIVE); URINE PROTEIN 100 mg/dL (<30 mg/dL)
[2018-03-28 11:03] LABS: URINE APPEARANCE CLEAR (CLEAR); URINE COLOR YELLOW (YELLOW)
[2018-03-28 11:08] LABS: URINE BACTERIA MANY (NEG); URINE EPITHELIAL CELLS 0 - 2 /hpf (0-5); URINE RBC 25 - 30 /hpf (0-2)
[2018-03-28 11:49] VITALS: BP 171/89; PULSE 78; TEMP 98; O2SAT 100
[2018-03-28 13:00] LABS: BARBITURATES, UR NEGATIVE (NEGATIVE); BENZODIAZEPINES, UR NEGATIVE (NEGATIVE)
[2018-03-28 13:01] LABS: OPIATES, UR NEGATIVE (NEGATIVE); PHENCYCLIDINE, UR NEGATIVE (NEGATIVE)
--- NOTE | 2018-03-29 10:30 | CARD ---
APPROVED REPORT Date of service: 03/28/2018 EKG Measurement Heart [id number] <Conclusion> Normal sinus rhythm Anteroseptal infarct, age undetermined T wave abnormality, consider lateral ischemia No change
== END 2018-03-28 11:30 | disposition home or self-care (01) ==
LOC: ED 07:36
DX: I10 Essential (primary) hypertension (principal); I25.10 Atherosclerotic heart disease of native coronary artery without angina pectoris; E78.5 Hyperlipidemia, unspecified; Z95.5 Presence of coronary angioplasty implant and graft
CPT/HCPCS: 70450; 71045; 80053; 81001; 82948; 84439; 84443; 84484; 85025; 85378; 87086; 93005; 96361; 96374; 99285; G0480; J0360; J7030

== ENCOUNTER 2018-04-22 08:04 | Emergency (ER) | payer BC ==
[2018-04-22 08:14] VITALS: BMI 45.6
[2018-04-22] MEDS ORDERED: Alum-Mag Hydrox-Simethicone Susp (30 mL) PO ONE (09:07)
--- NOTE | 2018-04-22 09:08 | ED PDOC ---
Arrival/HPI - General Chief Complaint: Abdominal Pain Time Seen by Provider: 04/22/18 08:54 Historian: Patient - History of Present Illness Narrative History of Present Illness (Text): 04/22/18 09:05 A 52 year old male, whose past medical history includes CAD s/p stents , hypertension(did not take medications this morning and doesn't remember name of medications), hyperlipidemia, and kidney stones, presents to the emergency dep artment complaining of waking up with chest pain and epigastric pain. Patient reports he had too much meet loaf last night. Patient denies any vomiting, diarrhea, shortness of breath, or any other complaints at this time. No PMD Past Medical History - Provider Review Nursing Documentation Reviewed: Yes - Past History Past History: No Previous - Infectious Disease Hx of Infectious Diseases: None - Tetanus Immunization Tetanus Immunization: Unknown - Past Medical History Past Medical History: No Previous - Cardiac Hx Cardiac Disorders: Yes (cp) Hx Hypertension: Yes Other/Comment: h/o cardiac cath 2017 - Pulmonary Hx Respiratory Disorders: No - Neurological Hx Neurological Disorder: No - HEENT Hx HEENT Disorder: (glasses/nearsighted and farsighted) Other/Comment: left eye sx age 11 pt stated "There was a white film over my eye causing impaired vision." Vision ok now - Renal Hx Kidney Stones: Yes (left lithotripsy 11 yrs ago) Other/Comment: pt recently dx with another left kidney stone - Endocrine/Metabolic Hx Endocrine Disorders: No - Hematological/Oncological Hx Blood Disorders: No - Integumentary Hx Dermatological Disorder: No - Musculoskeletal/Rheumatological Hx Back Pain: Yes (chronic left lower back) Hx Falls: No - Gastrointestinal Hx Gastrointestinal Disorders: Yes (obese) - Genitourinary/Gynecological Hx Genitourinary Disorders: Yes Hx Hematuria: Yes - Psychiatric Hx Psychophysiologic Disorder: No Hx Substance Use: No - Past Surgical History Past Surgical History: No Previous - Surgical History Hx Cardiac Catheterization: Yes Other/Comment: Left eye - Anesthesia Hx Anesthesia: Yes Hx Anesthesia Reactions: No - Suicidal Assessment Feels Threatened In Home Enviroment: No Family/Social History - Physician Review Nursing Documentation Reviewed: Yes Family/Social History: No Known Family HX Smoking Status: Never Smoked Hx Alcohol Use: No Hx Substance Use: No Hx Substance Use Treatment: No Allergies/Home Meds Allergies/Adverse Reactions: Allergies No Known Allergies Allergy (Verified 11/12/17 08:29) Home Medications: Home Meds Medication Instructions Recorded Confirmed Losartan Potassium 50 tab PO DAILY 10/12/17 04/24/18 Review of Systems - Physician Review All systems were reviewed & negative as marked: Yes - Review of Systems Cardiovascular: Chest Pain Gastrointestinal: Abdominal Pain (epigastric region) Physical Exam Vital Signs Reviewed: Yes Vital Signs Temp Pulse Resp BP Pulse Ox 04/22/18 08:14 97.3 F L 74 16 176/108 H 97 Temperature: Afebrile Blood Pressure: Hypertensive Pulse: Regular Respiratory Rate: Normal Appearance: Positive for: Well-Appearing, Non-Toxic, Comfortable, Other (obese) Pain Distress: None Mental Status: Positive for: Alert and Oriented X 3 - Systems Exam Head: Present: Atraumatic, Normocephalic Pupils: Present: PERRL Extroacular Muscles: Present: EOMI Conjunctiva: Present: Normal Mouth: Present: Moist Mucous Membranes Neck: Present: Normal Range of Motion Respiratory/Chest: Present: Clear to Auscultation, Good Air Exchange. No: Respiratory Distress, Accessory Muscle Use Cardiovascular: Present: Regular Rate and Rhythm, Normal S1, S2. No: Murmurs Abdomen: Present: Tenderness (epigastric region) Back: Present: Normal Inspection Upper Extremity: Present: Normal Inspection. No: Cyanosis, Edema Lower Extremity: Present: Normal Inspection. No: Edema Neurological: Present: GCS=15, CN II-XII Intact, Speech Normal Skin: Present: Warm, Dry, Normal Color. No: Rashes Psychiatric: Present: Alert, Oriented x 3, Normal Insight, Normal Concentration Medical Decision Making ED Course and Treatment: 04/22/18 09:07 Impression: 52 year old male with chest pain and epigastric pain. Physical exam shows epigastric tenderness. Differential Diagnosis included but are not limited to: Chest Pain rule out SD and Gastritis. Plan: -- Labs -- EKG -- Reassess and disposition Prior Visits: Notes and results from previous visits were reviewed. Patient was last seen in the emergency department on 03/28/2018 for dizziness with associated chest pain and shortness of breath. Patient was discharged home. Progress Notes: 04/22/2018 09:56 Chest X-ray IMPRESSION: No active disease. Dictator: Claus Correa MD Case discussed with Dr Ayon who is covering for Dr Pride. He recommends a repeat trop and ekg if they'r normal, he can be disccharged - Lab Interpretations I have reviewed the lab results: Yes - Scribe Statement The provider has reviewed the documentation as recorded by the Alix Jean-Baptiste Provider Scribe Attestation: All medical record entries made by the Scribe were at my direction and personally dictated by me. I have reviewed the chart and agree that the record accurately reflects my personal performance of the history, physical exam, medical decision making, and the department course for this patient. I have also personally directed, reviewed, and agree with the discharge instructions and disposition. Disposition/Present on Arrival - Present on Arrival Any Indicators Present on Arrival: No History of DVT/PE: No History of Uncontrolled Diabetes: No Urinary Catheter: No History of Decub. Ulcer: No History Surgical Site Infection Following: None - Disposition Have Diagnosis and Disposition been Completed?: Yes Diagnosis: Chest pain, Gastritis Disposition: HOME/ ROUTINE Disposition Time: 15:33 Condition: GOOD Discharge Instructions (ExitCare): Gastritis, Chest Pain, Chest Pain (ED) Additional Instructions: Follow up with your pcp in a few days and take pepcid daily as directed. Referrals: [facility] [place] [facility] [place] - Follow up with primary [facility] at [facility] [Outside] - Follow up with primary [facility] at [place] [Outside] - Follow up with primary Forms: [facility] (Icelandic), WORK NOTE
[2018-04-22 09:32] LABS: ALBUMIN 3.9 g/dL (3.0-4.8); CALCIUM 9.2 mg/dL (8.4-10.5)
[2018-04-22 09:38] LABS: BASO # 0.01 K/mm3 (0.0-2.0); BASO % 0.2 % (0.0-3.0); EOS # 0.2 (0.0-0.7); EOS % 2.5 % (1.5-5.0); GRAN # 3.99 (1.4-6.5); GRAN % 61.6 % (50.0-68.0); HEMOGLOBIN 13.6 g/dL (14.0-18.0); LYMPH # 1.7 (1.2-3.4); LYMPH % 26.7 % (22.0-35.0); MEAN CELL VOLUME 92.4 fl (80.0-105.0); MEAN CORPUSCULAR HEMOGLOBIN 30.3 pg (25.0-35.0); MEAN CORPUSCULAR HGB CONC 32.8 g/dl (31.0-37.0); MEAN PLATELET VOLUME 9.7 fl (7.0-11.0); MONO # 0.6 (0.1-0.6); RBC 4.49 10^6/uL (3.5-6.1); RED CELL DISTRIBUTION WIDTH 12.8 % (11.5-14.5); WHITE BLOOD COUNT 6.5 10^3/uL (4.5-11.0)
[2018-04-22 09:44] LABS: TROPONIN I 0.05 ng/mL
--- NOTE | 2018-04-22 09:59 | RAD ---
Date of service: 04/22/2018 HISTORY: chest pain COMPARISON: 03/28/2018 FINDINGS: LUNGS: No active pulmonary disease. PLEURA: No significant pleural effusion identified, no pneumothorax apparent. CARDIOVASCULAR: No aortic atherosclerotic calcification present. Normal cardiac size. No pulmonary vascular congestion. OSSEOUS STRUCTURES: No significant abnormalities. VISUALIZED UPPER ABDOMEN: Normal. OTHER FINDINGS: None. IMPRESSION: No active disease.
[2018-04-22 10:08] LABS: URINE BILIRUBIN NEGATIVE (NEGATIVE); URINE BLOOD MODERATE (NEGATIVE); URINE GLUCOSE (UA) NEGATIVE (NEGATIVE); URINE LEUKOCYTE ESTERASE SMALL Leu/uL (NEGATIVE); URINE PROTEIN 100 mg/dL (<30 mg/dL); URINE UROBILINOGEN 0.2 E.U./dL (<1 E.U./dL)
[2018-04-22 10:12] LABS: URINE APPEARANCE TURBID (CLEAR); URINE COLOR YELLOW (YELLOW)
[2018-04-22 10:26] LABS: URINE RBC 25 - 30 /hpf (0-2)
--- NOTE | 2018-04-22 14:05 | CARD ---
APPROVED REPORT Date of service: 04/22/2018 EKG Measurement Heart [id number] [id number] [id number] <Conclusion> Normal sinus rhythm Septal infarct, age undetermined ST & T wave abnormality c/w ischemia
[2018-04-23 00:25] VITALS: BP 153/98; PULSE 69; RESP 18; TEMP 99.8; O2SAT 96
== END 2018-04-22 15:32 | disposition home or self-care (01) ==
LOC: ED 08:04 → UNDOADMIN 12:30 → ERH 12:30
DX: R07.9 Chest pain, unspecified (principal); K29.70 Gastritis, unspecified, without bleeding; I25.10 Atherosclerotic heart disease of native coronary artery without angina pectoris; I10 Essential (primary) hypertension; E78.5 Hyperlipidemia, unspecified; Z95.5 Presence of coronary angioplasty implant and graft

== ENCOUNTER 2018-04-24 08:20 | Emergency (ER) | payer BC ==
[2018-04-24 08:28] VITALS: BMI 44.9
--- NOTE | 2018-04-24 08:53 | ED PDOC ---
Arrival/HPI - General Chief Complaint: Chest Pain Time Seen by Provider: 04/24/18 08:38 Historian: Patient - History of Present Illness Narrative History of Present Illness (Text): 04/24/18 08:48 A 52 year old male, whose past medical history includes CAD s/p stents, hypertension, hyperlipidemia, and kidney stones, presents to the emergency department complaining of chest pain starting yesterday at approximately 18:00. Patient reports he feels pain going across chest region and it is intermittent. States he started feeling sweats but the sensation went away. Patient notes also experiencing dizziness and nausea, however denies any shortness of breath associated with pain, or any other complaints at this time. Also, patient denies any history of smoking and does not have diabetes. Notes having cardiac stress test and catheterization performed here in [facility], however does not remember who was the business liaison manager who performed them. PMD: Dr. Jordan Past Medical History - Provider Review Nursing Documentation Reviewed: Yes - Past History Past History: No Previous - Infectious Disease Hx of Infectious Diseases: None - Tetanus Immunization Tetanus Immunization: Unknown - Past Medical History Past Medical History: No Previous - Cardiac Hx Cardiac Disorders: Yes (cp) Hx Hypertension: Yes Other/Comment: h/o cardiac cath 2017 - Pulmonary Hx Respiratory Disorders: No - Neurological Hx Neurological Disorder: No - HEENT Hx HEENT Disorder: (glasses/nearsighted and farsighted) Other/Comment: left eye sx age 11 pt stated "There was a white film over my eye causing impaired vision." Vision ok now - Renal Hx Kidney Stones: Yes (left lithotripsy 11 yrs ago) Other/Comment: pt recently dx with another left kidney stone - Endocrine/Metabolic Hx Endocrine Disorders: No - Hematological/Oncological Hx Blood Disorders: No - Integumentary Hx Dermatological Disorder: No - Musculoskeletal/Rheumatological Hx Back Pain: Yes (chronic left lower back) Hx Falls: No - Gastrointestinal Hx Gastrointestinal Disorders: Yes (obese) - Genitourinary/Gynecological Hx Genitourinary Disorders: Yes Hx Hematuria: Yes - Psychiatric Hx Psychophysiologic Disorder: No Hx Substance Use: No - Past Surgical History Past Surgical History: No Previous - Surgical History Hx Cardiac Catheterization: Yes Other/Comment: Left eye - Anesthesia Hx Anesthesia: Yes Hx Anesthesia Reactions: No - Suicidal Assessment Feels Threatened In Home Enviroment: No Family/Social History - Physician Review Nursing Documentation Reviewed: Yes Family/Social History: No Known Family HX Smoking Status: Never Smoked Hx Alcohol Use: No Hx Substance Use: No Hx Substance Use Treatment: No Allergies/Home Meds Allergies/Adverse Reactions: Allergies No Known Allergies Allergy (Verified 11/12/17 08:29) Home Medications: Home Meds Medication Instructions Recorded Confirmed Losartan Potassium 50 tab PO DAILY 10/12/17 04/24/18 Review of Systems - Physician Review All systems were reviewed & negative as marked: Yes - Review of Systems Respiratory: absent: SOB Cardiovascular: Chest Pain (intermittent) Gastrointestinal: Nausea Neurological: Dizziness Physical Exam - Physical Exam Narrative Physical Exam (Text): Gen: VS reviewed, alert, well developed, well nourished, nontoxic, mild distress. ENT: normal pharynx. Eye: EOMI, PERRL. Neck: no JVD, supple, no adenopathy. CV: regular rate, regular rhythm, no rubs, no murmur, no gallops, S1, S2, pulses equal and strong. Pulm: no distress, clear to auscultation, no wheeze, no rhonchi, breath sounds equal, no rales. Abd: soft, nontender, no guarding, no rebound, no rigidity, normal bowel sounds. Ext: no edema. Skin: good color, no rash, no cyanosis. Psych: responds appropriately to questions, normal affect. Neuro: oriented x 3, CN2-12 intact grossly, motor intact, sensation intact. Vital Signs Reviewed: Yes Vital Signs Temp Pulse Resp BP Pulse Ox 04/24/18 08:26 97.6 F 53 L 16 166/96 H 94 L Temperature: Afebrile Blood Pressure: Hypertensive Pulse: Regular Respiratory Rate: Normal Appearance: Positive for: Well-Appearing, Non-Toxic, Comfortable Pain Distress: None Mental Status: Positive for: Alert and Oriented X 3 Medical Decision Making ED Course and Treatment: 04/24/18 08:49 Impression: 52 year old male for chest pain. No acute findings on physical exam. Plan: -- EKG -- Chest X-ray -- Labs -- Reassess and disposition Prior Visits: Notes and results from previous visits were reviewed. Patient was last seen in the emergency department on 04/22/2018 for chest pain and epigastric pain. Progress Notes: 04/24/18 10:17 patient seen for recurrent left sided chest pain radiating into the left arm with abnormal ekg. heart score = 4. will admit for for cardiac workup rule out acs. patient remained stable throughout Emergency department cours. 04/24/18 10:44 patient backtracked and states that he cannot stay because he "cannot afford to stay overnight". "I have things to do" 04/24/18 14:00 AMA: ADMIT NEEDED The patient refuses admission and wishes to leave the Emergency Department against my medical advice. Patient was told that admission to the hospital is necessary and a full explanation of the reasons why was given, and understood by patient. The risks of leaving were explained and include worsening of condition, and permanent disability and from an undiagnosed or untreated condition. The patient accepts these risks, and is in my judgement is competent and capable of understanding the clinical situation and my explanation of the risks of leaving. Patient was given the opportunity to ask questions and change mind. The patient was instructed regarding the best care for the present symptoms, and to follow up with Dr. Ge as soon as possible, or return to the Emergency Department at any time for continuing care. - Lab Interpretations I have reviewed the lab results: Yes - RAD Interpretation Narrative RAD Interpretations (Text): 04/24/2018 10:55 Chest X-ray IMPRESSION: No active disease. No significant interval change compared to the prior examination(s). Dictator: Solomon Edouard MD Radiology Orders: 04/24/18 08:48 CHEST PORTABLE [RAD] Stat - EKG Interpretation EKG Interpretation (Text): 04/24/18 10:16 0831: sinus bradycardia at 53 bpm, nml qrs, septal infarct, lateral fliped t wav es which appear somewhat worse when compared to prior ekg on file Interpreted by ED Physician: Yes - Scribe Statement The provider has reviewed the documentation as recorded by the Scribe Diane Jean-Baptiste Provider Scribe Attestation: All medical record entries made by the Scribe were at my direction and personally dictated by me. I have reviewed the chart and agree that the record accurately reflects my personal performance of the history, physical exam, medical decision making, and the department course for this patient. I have also personally directed, reviewed, and agree with the discharge instructions and disposition. Disposition/Present on Arrival - Present on Arrival Any Indicators Present on Arrival: No History of DVT/PE: No History of Uncontrolled Diabetes: No Urinary Catheter: No History of Decub. Ulcer: No History Surgical Site Infection Following: None - Disposition Have Diagnosis and Disposition been Completed?: Yes Diagnosis: Angina at rest Disposition: AGAINST MEDICAL ADVICE Disposition Time: 14:01 Patient Plan: Admission, Discharge Patient Problems: Current Active Problems Problem Status Onset Angina at rest Acute Condition: STABLE Discharge Instructions (ExitCare): Angina Additional Instructions: Return for any new or worsening symptoms. Follow up with your primary care doctor within 24 hours. ELVIS REYES, thank you for letting us take care of you today. Your provider was Dr. Darrick Connolly and you were treated for chest pain. The emergency medical care you received today was directed at your acute symptoms. If you were prescribed any medication, please fill it and take as directed. It may take several days for your symptoms to resolve. Return to the Emergency Department if your symptoms worsen, do not improve, or if you have any other problems. Please contact your doctor or call one of the physicians/clinics you have been referred to that are listed on the Patient Visit Information form that is included in your discharge packet. Bring any paperwork you were given at discharge with you along with any medications you are taking to your follow up visit. Our treatment cannot replace ongoing medical care by a primary care provider outside of the emergency department. Thank you for allowing the [facility] team to be part of your care today. If you had an X-Ray or CT scan: A Radiologist will review the ED reading if any change in treatment is needed we will contact you. If you had a blood, urine, or wound culture: It will take several days for the results, if any change in treatment is needed we will contact you. If you had an STI test: It will take 48 hours for the results. Please call after 1 week if you have not heard back. Referrals: Sofi Jordan MD [Primary Care Provider] - Follow up with primary
[2018-04-24 09:05] LABS: BASO # 0.02 K/mm3 (0.0-2.0); BASO % 0.3 % (0.0-3.0); EOS # 0.2 (0.0-0.7); EOS % 2.2 % (1.5-5.0); GRAN # 4.33 (1.4-6.5); LYMPH # 1.5 (1.2-3.4); LYMPH % 22.1 % (22.0-35.0); MEAN CELL VOLUME 92.2 fl (80.0-105.0); MEAN CORPUSCULAR HEMOGLOBIN 30.4 pg (25.0-35.0); MEAN CORPUSCULAR HGB CONC 32.9 g/dl (31.0-37.0); MEAN PLATELET VOLUME 9.7 fl (7.0-11.0); MONO # 0.9 (0.1-0.6); MONO % 12.4 % (1.0-6.0); RBC 4.61 10^6/uL (3.5-6.1); RED CELL DISTRIBUTION WIDTH 12.8 % (11.5-14.5); WHITE BLOOD COUNT 6.9 10^3/uL (4.5-11.0)
[2018-04-24 09:21] LABS: INR 1.09; PARTIAL THROMBOPLASTIN TIME 31.3 Seconds (25.1-36.5); PROTHROMBIN TIME 12.5 SECONDS (9.4-12.5)
[2018-04-24 09:24] LABS: D DIMER < 200 ng/mlDDU (0-243)
[2018-04-24 09:50] LABS: CALCIUM 9.1 mg/dL (8.4-10.5)
[2018-04-24 09:51] LABS: TROPONIN I 0.05 ng/mL
[2018-04-24 10:23] VITALS: O2SAT 96
--- NOTE | 2018-04-24 11:00 | RAD ---
Date of service: 04/24/2018 HISTORY: Chest pain. COMPARISON: 04/22/2018. FINDINGS: LUNGS: No active pulmonary disease. PLEURA: No significant pleural effusion identified, no pneumothorax apparent. CARDIOVASCULAR: No atherosclerotic calcification present No radiographic findings to suggest acute or significant cardiovascular disease. OSSEOUS STRUCTURES: No significant abnormalities. VISUALIZED UPPER ABDOMEN: Normal. OTHER FINDINGS: None. IMPRESSION: No active disease. No significant interval change compared to the prior examination(s).
[2018-04-24 12:11] VITALS: RESP 18
--- NOTE | 2018-04-24 13:51 | CARD ---
APPROVED REPORT Date of service: 04/24/2018 EKG Measurement Heart [id number] <Conclusion> Sinus bradycardia Septal infarct, age undetermined ST & T wave abnormality c/w ischemia
[2018-04-24 14:11] VITALS: BP 142/72; PULSE 73; TEMP 98.3
== END 2018-04-24 14:11 | disposition left against medical advice (07) ==
LOC: ED 08:20 → UNDOADMIN 10:27 → ERH 10:27 → ED 14:11
DX: I20.9 Angina pectoris, unspecified (principal); I10 Essential (primary) hypertension; Z95.5 Presence of coronary angioplasty implant and graft; E78.5 Hyperlipidemia, unspecified

== ENCOUNTER 2018-04-29 08:33 | Inpatient (IN) | payer BC ==
[2018-04-29 08:39] VITALS: BMI 45.6
--- NOTE | 2018-04-29 09:04 | ED PDOC ---
Arrival/HPI - General Chief Complaint: Chest Pain Time Seen by Provider: 04/29/18 08:40 Historian: Patient - History of Present Illness Narrative History of Present Illness (Text): 04/29/18 09:02 A 52 year old male, whose past medical history includes CAD s/p stents, hypertension, hyperlipidemia, and kidney stones, presents to the emergency department complaining of mid-sternal chest pain starting this morning at approximately 03:00. Patient reports he felt chest pain 2 days ago, however at the time did not seek medical attention. Pain returned this morning at 03:00, stating pain has been on and off. Describes pain at the time as "throbbing and feeling hard breath of air." Here in the ER at this time, patient states he currently experiences no pain. Patient denies any other complaints at this time. Patient has been asked if he will be willing to remain in the hospital for admission, and patient agrees. PMD: Dr. Rivera Past Medical History - Provider Review Nursing Documentation Reviewed: Yes - Past History Past History: No Previous - Infectious Disease Hx of Infectious Diseases: None - Tetanus Immunization Tetanus Immunization: Unknown - Past Medical History Past Medical History: No Previous - Cardiac Hx Cardiac Disorders: Yes (cp) Hx Hypertension: Yes Other/Comment: h/o cardiac cath 2017 - Pulmonary Hx Respiratory Disorders: No - Neurological Hx Neurological Disorder: No - HEENT Hx HEENT Disorder: (glasses/nearsighted and farsighted) Other/Comment: left eye sx age 11 pt stated "There was a white film over my eye causing impaired vision." Vision ok now - Renal Hx Kidney Stones: Yes (left lithotripsy 11 yrs ago) Other/Comment: pt recently dx with another left kidney stone - Endocrine/Metabolic Hx Endocrine Disorders: No - Hematological/Oncological Hx Blood Disorders: No - Integumentary Hx Dermatological Disorder: No - Musculoskeletal/Rheumatological Hx Back Pain: Yes (chronic left lower back) Hx Falls: No - Gastrointestinal Hx Gastrointestinal Disorders: Yes (obese) - Genitourinary/Gynecological Hx Genitourinary Disorders: Yes Hx Hematuria: Yes - Psychiatric Hx Psychophysiologic Disorder: No Hx Substance Use: No - Past Surgical History Past Surgical History: No Previous - Surgical History Hx Cardiac Catheterization: Yes Other/Comment: Left eye - Anesthesia Hx Anesthesia: Yes Hx Anesthesia Reactions: No - Suicidal Assessment Feels Threatened In Home Enviroment: No Family/Social History - Physician Review Nursing Documentation Reviewed: Yes Family/Social History: No Known Family HX Smoking Status: Never Smoked Hx Alcohol Use: No Hx Substance Use: No Hx Substance Use Treatment: No Allergies/Home Meds Allergies/Adverse Reactions: Allergies No Known Allergies Allergy (Verified 11/12/17 08:29) Home Medications: Home Meds Medication Instructions Recorded Confirmed Losartan Potassium 50 tab PO DAILY 10/12/17 04/29/18 Review of Systems - Physician Review All systems were reviewed & negative as marked: Yes - Review of Systems Respiratory: absent: Cough Cardiovascular: Chest Pain (felt chest pain at 03:00, currently in the ER does not feel pain) Physical Exam - Physical Exam Narrative Physical Exam (Text): Gen: VS reviewed, alert, well developed, well nourished, nontoxic, mild distress. ENT: normal pharynx. Eye: EOMI, PERRL. Neck: no JVD, supple, no adenopathy. CV: regular rate, regular rhythm, no rubs, no murmur, no gallops, S1, S2, pulses equal and strong. Pulm: no distress, clear to auscultation, no wheeze, no rhonchi, breath sounds equal, no rales. Abd: soft, nontender, no guarding, no rebound, no rigidity, normal bowel sounds. Ext: no edema. Skin: good color, no rash, no cyanosis. Psych: responds appropriately to questions, normal affect. Neuro: oriented x 3, CN2-12 intact grossly, motor intact, sensation intact. Vital Signs Reviewed: Yes Vital Signs Temp Pulse Resp BP Pulse Ox 04/29/18 08:39 98.6 F 79 20 160/110 H 99 Temperature: Afebrile Blood Pressure: Hypertensive Pulse: Regular Respiratory Rate: Normal Appearance: Positive for: Well-Appearing, Non-Toxic, Comfortable Pain Distress: None Mental Status: Positive for: Alert and Oriented X 3 Medical Decision Making ED Course and Treatment: 04/29/18 09:04 Impression: 52 year old male with mid-sternal chest pain. Plan: -- EKG -- Chest X-ray -- Labs -- Reassess and disposition Prior Visits: Notes and results from previous visits were reviewed. Patient was last seen in the emergency department on 04/24/2018 for chest pain. Patient left against medical advice. Progress Notes: 04/29/18 09:[address] Winston, covering for Dr. Pride, who agrees for patient to be admitted to hospital and will see patient in consultation. 04/29/18 09:45 my review of the durable power of staff attorney retrieved directly from medical records shows that the , michelle forte has financial POA. from my non- legal inspection of the document, i do not see details of medical power of staff attorney. 04/29/18 11:[address] El, who accepts patient for admission, and requests Dr. Winston for consultation. 04/29/18 12:59 case discussed with jose antonio nesbitt, risk management, agrees that if the patient is competent then the patient can make medical decisions for himself. she will also look into the matter regarding paperwork for medical POA - Lab Interpretations I have reviewed the lab results: Yes - RAD Interpretation Narrative RAD Interpretations (Text): 04/29/2018 10:52 Chest X-ray IMPRESSION: No active disease. Dictator: Claus Correa MD - EKG Interpretation EKG Interpretation (Text): 04/29/18 09:12 0841: nsr at 79 bpm, nml qrs, nml axis, lateral flipped t waves Interpreted by ED Physician: Yes - Scribe Statement The provider has reviewed the documentation as recorded by the Alix Jean-Baptiste Provider Scribe Attestation: All medical record entries made by the Scribe were at my direction and personally dictated by me. I have reviewed the chart and agree that the record accurately reflects my personal performance of the history, physical exam, medical decision making, and the department course for this patient. I have also personally directed, reviewed, and agree with the discharge instructions and disposition. Disposition/Present on Arrival - Present on Arrival Any Indicators Present on Arrival: No History of DVT/PE: No History of Uncontrolled Diabetes: No Urinary Catheter: No History of Decub. Ulcer: No History Surgical Site Infection Following: None - Disposition Have Diagnosis and Disposition been Completed?: Yes Diagnosis: Angina at rest Disposition: HOSPITALIZED Disposition Time: 10:32 Patient Plan: Admission Patient Problems: Current Active Problems Problem Status Onset Angina at rest Acute Condition: STABLE
[2018-04-29 10:15] LABS: BASO # 0.01 K/mm3 (0.0-2.0); BASO % 0.1 % (0.0-3.0); EOS # 0.2 (0.0-0.7); EOS % 2.9 % (1.5-5.0); GRAN # 4.31 (1.4-6.5); GRAN % 60.1 % (50.0-68.0); HEMOGLOBIN 13.8 g/dL (14.0-18.0); LYMPH # 1.6 (1.2-3.4); LYMPH % 22.4 % (22.0-35.0); MEAN CELL VOLUME 91.8 fl (80.0-105.0); MEAN CORPUSCULAR HEMOGLOBIN 29.8 pg (25.0-35.0); MEAN CORPUSCULAR HGB CONC 32.5 g/dl (31.0-37.0); MEAN PLATELET VOLUME 9.9 fl (7.0-11.0); MONO % 14.5 % (1.0-6.0); RBC 4.63 10^6/uL (3.5-6.1); RED CELL DISTRIBUTION WIDTH 12.7 % (11.5-14.5); WHITE BLOOD COUNT 7.2 10^3/uL (4.5-11.0)
[2018-04-29 10:20] LABS: INR 1.03; PARTIAL THROMBOPLASTIN TIME 36.1 Seconds (25.1-36.5); PROTHROMBIN TIME 11.9 SECONDS (9.4-12.5)
[2018-04-29 10:21] LABS: ALB/GLOB RATIO 0.9 (1.1-1.8); CALCIUM 9.4 mg/dL (8.4-10.5)
[2018-04-29 10:30] LABS: TROPONIN I 0.05 ng/mL
--- NOTE | 2018-04-29 10:56 | RAD ---
Date of service: 04/29/2018 HISTORY: chest pain COMPARISON: 04/24/2018 FINDINGS: LUNGS: No active pulmonary disease. PLEURA: No significant pleural effusion identified, no pneumothorax apparent. CARDIOVASCULAR: No aortic atherosclerotic calcification present. Normal cardiac size. No pulmonary vascular congestion. OSSEOUS STRUCTURES: No significant abnormalities. VISUALIZED UPPER ABDOMEN: Normal. OTHER FINDINGS: None. IMPRESSION: No active disease.
--- NOTE | 2018-04-29 13:33 | CARD ---
APPROVED REPORT Date of service: 04/29/2018 EKG Measurement Heart [id number] <Conclusion> Normal sinus rhythm Anteroseptal infarct, age undetermined T wave abnormality, consider lateral ischemia Abnormal ECG
[2018-04-29] MEDS ORDERED: Nitroglycerin 2% Ointment Foilpak UD TOP PRN (13:55)
--- NOTE | 2018-04-29 16:53 | CON ---
DATE: 04/29/2018 LOCATION: The patient is in emergency room on bed 2. REASON FOR CONSULTATION: Chest pain. HISTORY OF PRESENT ILLNESS: The patient is a 52-year-old admitted with a history that he woke up from sleep 3 a.m. with a throbbing pain in the lower sternal area and pain was continuous for four hours. He says sometimes he felt some pain in the left arm also. He says he has been getting this pain off and on. Sometimes on exertion also he gets the similar pain. The patient denies any nausea, vomiting, hematemesis, or melena. The patient is known hypertensive and hyperlipidemia, and he says his only medicine he is on is losartan 50 mg daily. He denies any PND or swelling of legs. PAST MEDICAL HISTORY: Past history is positive for hypertension. The patient also has a kidney stone on the left for which he had lithotripsy, he said the stone has reoccurred on the left side and he needs another lithotripsy, but he has not gone for that at this moment. The patient is also known case of obesity. The patient in 05/2017 had a nuclear stress test, which was reported as normal, so following that he had cardiac catheterization on 04/25/2017, which showed LV ejection fraction about 55%, left main was normal, LAD diffuse 40%, tubular narrowing in its proximal segment, distal and mid vessel had diffuse irregularities, diagonal branches had mildly diffuse disease, the left circumflex artery gave rise to one large obtuse marginal branch which had 60% proximal stenosis, mild irregularities were noted distally. The right coronary artery was dominant, mild irregularities were noted throughout the proximal and mid portion. The posterolateral branch was a [id number] sized vessel with 80% stenosis in mid portion at the takeoff of the small side branch. So with these findings, the patient was advised medical therapy. PERSONAL HISTORY: Denies smoking. Denies drinking. ALLERGIES: THE PATIENT DENIES ANY ALLERGIES. FAMILY HISTORY: Not significant. MEDICATIONS AT HOME: The patient was only taking losartan 50 mg once a day. REVIEW OF SYSTEMS: All the systems reviewed, positive mentioned in the history. PHYSICAL EXAMINATION: VITAL SIGNS: Blood pressure 155/67, respirations 16, pulse 82, and temperature 98.6. HEENT: Head is normocephalic. Eyes, pupils normal. Conjunctivae normal. Nose and throat normal. NECK: JVP low. Carotids equal. THORAX: AP diameter normal. LUNGS: Clear. The patient on the thorax has slight tenderness on the area of the pain, but he says when I press the chest, he says this is different type of pain as compared to which he had this morning, which was throbbing type of pain. CARDIOVASCULAR: S1, S2. No rub. No click. ABDOMEN: Protuberant. No organomegaly. Bowel sounds normal. EXTREMITIES: No clubbing. No cyanosis. LABORATORY DATA: WBC 7.2, hemoglobin 13.8, hematocrit 42.5, and platelets 207. Sodium 142, potassium 4.3, BUN 20, creatinine 2.3. AST and ALT normal. Total protein and albumin normal. Troponin 0.05, which is normal. The patient's chest x-ray, no active disease. EKG showed regular sinus rhythm, some T inversions were noted, also poor progression of R-wave in V1 through V4 questionable old anteroseptal IA. DIAGNOSES: Chest pain, atypical type of chest pain, coronary artery disease, he had cardiac catheterization as mentioned in the history, hypertension, hyperlipidemia, obesity. PLAN: We will do echo and we will also do nuclear stress test to evaluate the chest pain. We will check lipid profile and TSH. We will start aspirin, losartan 50 mg daily. I also advised the patient to lose weight. We will also put Protonix 40 mg daily. We will follow with you closely. Chace Pride MD
--- NOTE | 2018-04-29 18:40 | HP ---
DATE OF EXAM: 04/29/2018 HISTORY OF PRESENT ILLNESS: This 52-year-old male was examined in [facility] ER on the morning of 04/29/2018. Present for this interview was physician, Dr. Raciel Mccollum from Psychiatry. The patient presented to the ER and was seen by Dr. Darrick Connolly. According to Dr. Connolly, the patient has a history of coronary artery disease and coronary artery stents in the setting of obesity, hypertension, and hyperlipidemia, and the patient presented this morning complaining of substernal chest pressure which occurred approximately 3 a.m. this morning. The patient apparently was in the [facility] ER two days ago, at which time he was advised to seek admission, but he left AMA. He returned this morning stating that he had persistent chest pain on and off and described it as a throbbing feeling with difficulty catching his breath. While in the emergency room, he denied any active chest pain, but I asked Dr. Mccollum to see the patient with me regarding the issue of medical competency since Dr. Darrick Connolly states that the called stating she had [id number] for all medical decisions for this patient. On further review, the patient's outpatient medications included losartan. ALLERGIES: HE DENIED ANY ALLERGIES TO MEDICATION. SOCIAL HISTORY: He is an employee of the [employer] [place] where he works in [employer] and stated he was a nonsmoker, nondrinker, non-IV drug misuser. FAMILY HISTORY: Noncontributory. MEDICATIONS: His only home medication included losartan 50 mg by mouth daily. REVIEW OF SYSTEMS: CONSTITUTIONAL: He denied fever or chills. HEAD: No headache or seizure. EYES: No change in visual acuity. EARS: No hearing loss. THROAT: No swallowing difficulty. NECK: No stiffness. CARDIAC: As per HPI. PULMONARY: No cough. No hemoptysis. GASTROINTESTINAL: No hematemesis. No melena. GENITOURINARY: No dysuria. SKIN: No rash. VASCULAR: No claudication. PSYCHOLOGICAL: He denied any knowledge of depression or stroke. ENDOCRINOLOGICAL: Denied diabetes mellitus or knowledge of hyperlipidemia. PHYSICAL EXAMINATION: VITAL SIGNS: Temperature was 98.8, respirations 18, pulse 72, and blood pressure 156/98 with a pulse ox of 97% on room air. HEENT: Head; normocephalic, atraumatic. Eyes, no icterus. Ears, clear. Throat, noninjected. NECK: Supple. HEART: Regular, S1, S2. LUNGS: Clear. ABDOMEN: Obese. EXTREMITIES: No edema. SKIN: Without rash. NEUROLOGICAL: Intact. PSYCHOLOGICAL: Alert and oriented x3. VASCULAR: Legs warm to touch. LABORATORY DATA: White count 7200, hemoglobin 13.8, hematocrit 42.5, platelets 227,000. PT/INR 1.03, PTT 36.1. Sodium 142, K 4.3, chloride 108, bicarb 27, BUN 20, creatinine 2.3. Estimated GFR 36 mL per minute. Random blood sugar 107. Calcium 9.4. Bilirubin 0.4, AST 22, ALT 18, alkaline phosphatase 74. Troponin 0.05. Lipase 94. DIAGNOSTIC DATA: Chest x-ray was reviewed. It showed no active pulmonary disease. No significant effusion, no pneumothorax, no infiltrate, no pulmonary vascular congestion. EKG was reviewed. It showed normal sinus rhythm with an anteroseptal infarct, age undetermined with lateral ischemic changes. IMPRESSION: A 52-year-old obese, hypertensive male with chronic renal failure, stage III, now being admitted with unstable angina and history of coronary artery disease and stents, also with uncontrolled hypertension. PLAN: The plan at present is to continue Ecotrin 81 mg by mouth daily, Cozaar 50 mg by mouth daily . The patient was evaluated by Dr. Mccollum from Psychiatry who recommended that risk management be contacted for further evaluation of determining if the does indeed have [id number] medically for this patient. It should be noted that during my interview with Dr. Mccollum, the patient's mental status was alert, oriented, affect appropriate, and the patient seemed mentally competent to make his own decisions. He will be scheduled for a fasting lipid panel and a TSH level. He will be ordered to have an echo because of uncontrolled hypertension and chest pain. He has been scheduled for a stress test in a.m. and will be ordered to have a heart-healthy diabetic diet. Based on the results of the above, additional diagnostic workup and testing will be entertained. All of the above was reviewed in detail with the patient, Dr. Mccollum, Dr. Winston from Cardiology, and Dr. Connolly from the emergency room. All questions were answered. Nicky El MD [facility] # [id number] TRINI
--- NOTE | 2018-04-30 05:23 | CON ---
DATE: 04/29/2018 IDENTIFYING INFORMATION: The patient is a 52-year-old -Martiniquais male who presented to the emergency room and who represented a treatment dilemma, with he indicating that his has power of patent prosecution attorney and health care proxy over him, but without such documentation. I was asked to assess his competency. The patient had initially been seen by the ER doctor, Dr. Connolly, and then I had seen the patient along with his treating geospatial program management officer, Dr. Nicky El. PAST MEDICAL HISTORY: The patient has a history of coronary artery disease with stent placement in the past in the setting of obesity, hypertension and hyperlipidemia. He on the morning of his emergency room evaluation, complained of substernal chest pressure which started at approximately 3 a.m. He had also visited the ER 2 days previously and was advised to seek admission but left against medical advice. Dr. Connolly indicated that his was insisting that she had power of patent prosecution attorney for medical decisions for the patient. The patient is a [place] of [employer]. He indicated that he had graduated from high school. He denied any learning difficulties (but had trouble negotiating math problems such as subtractions or serial sevens or serial threes). He has worked for many years for the [employer] of [place], working on their [employer] division. The patient denied a history of alcohol or drug use. He denied a psychiatric history. The medical impression was that of a gentleman with hypertension, chronic renal failure (stage III) with unstable angina; this is with a past history of coronary artery disease with stent placement and hypertension. On evaluation, the patient was alert, oriented to three spheres. His affect was appropriate. He was able to identify where one keeps money, was aware of how he might have access to it (although his seems to control the purse strings of the family). He indicated that his does have power of patent prosecution attorney over him (although they have never seen a curriculum writer to finalize this decision between them). I have suggested that given this rather unusual situation, the patient insisting that his make decisions for him (even though he seems capable of making that himself) that we consult with risk management about what would be the most appropriate way to proceed in determining his 's insistence that she has power of patent prosecution attorney, the patient's compliance with this perceived mandate, but with the absence of any legal documentation to support this verbal attestation. Thank you as always for this consultation. Raciel Mccollum MD/ PhD
--- NOTE | 2018-04-30 06:03 | CP.PCM.PN ---
Subjective - Date & Time of Evaluation Date of Evaluation: 04/30/18 Time of Evaluation: 06:25 - Subjective Subjective: Lying in bed, denies chest pain, no distress Reason for consultation and follow up: Cardiac evaluation of chest pain, history of coronary artery disease post stents,hypertension, hyperlipidemia,obese Seen and examined by me and Dr. Winston Objective - Vital Signs/Intake and Output Vital Signs (last 24 hours): Temp Pulse Resp BP Pulse Ox 98 F 53 L 20 147/89 92 L 04/29/18 23:01 04/30/18 05:12 04/29/18 23:01 04/29/18 23:01 04/29/18 23:01 - Medications Medications: Current Medications Acetaminophen (Tylenol 325mg Tab) 650 mg PO Q6H PRN PRN Reason: Pain, Mild (1-3) OR TEMP Aspirin (Ecotrin) 81 mg PO DAILY [facility] Famotidine (Pepcid) 20 mg PO HS [facility] Last Admin: 04/29/18 21:29 Dose: 20 mg Losartan Potassium (Cozaar) 50 mg PO DAILY [facility] Last Admin: 04/29/18 13:39 Dose: 50 mg Metoprolol Tartrate (Lopressor) 25 mg PO BID [facility] Last Admin: 04/29/18 18:20 Dose: 25 mg Nitroglycerin (Nitro-Bid 2% Oint) 1 ea TOP Q4H PRN PRN Reason: accelerated hypertension Ondansetron HCl (Zofran Inj) 4 mg IVP Q6H PRN PRN Reason: Nausea/Vomiting - Labs Labs: 04/29/18 08:45 04/29/18 08:45 PT 11.9 SECONDS (9.4-12.5) 04/29/18 08:45 INR 1.03 04/29/18 08:45 APTT 36.1 Seconds (25.1-36.5) 04/29/18 08:45 - Constitutional Appears: Non-toxic, No Acute Distress - Head Exam Head Exam: NORMAL INSPECTION, NORMOCEPHALIC - Eye Exam Eye Exam: Normal appearance Pupil Exam: NORMAL ACCOMODATION - ENT Exam ENT Exam: Mucous Membranes Moist, Normal Exam - Respiratory Exam Respiratory Exam: Clear to Ausculation Bilateral, NORMAL BREATHING PATTERN - Cardiovascular Exam Cardiovascular Exam: Bradycardia, +S1, +S2 Additional comments: Telemetry SB 50's - GI/Abdominal Exam GI & Abdominal Exam: Soft, Normal Bowel Sounds - Extremities Exam Extremities Exam: Full ROM - Neurological Exam Neurological Exam: Alert, Awake, Oriented x3 - Psychiatric Exam Psychiatric exam: Normal Affect, Normal Mood - Skin Skin Exam: Dry, Normal Color, Warm Assessment and Plan - Assessment and Plan (Free Text) Assessment: A 52 year old obese male who came in to the ER due to mid sternal chest pain. He woke up at 3 am with throbbing lower mid sternal chest pain and was continous for four hours. He also felt pain on the left arm. He had been experiencing chest pain off and on, but this time associated with shortness of breath. History of coronary artery disease with stents, hypertension,hyperlipidemia,and kidney stones.(hx of left lithotripsy). Troponin- 0.05 indeterminate, Last cardiac cath 04/25/17- mild to moderate diffuse disease of LAD Circumflex. Severe distal right coronary artery disease. Medical treatment/ therapy recommended. Atypical chest pain. For stress test and Echo today. Plan: For Echo today to evaluate LV function For Stress test today Uncontrolled blood pressure SBP 170-180's Hydralazine IV given Will start oral Hydralazine On ASA 81 mg daily,Cozaar 50 mg daily,Lopressor 25 mg BID Nitro-bid topical 1 inch daily Continue current medications Continue current treatment Life style modification Weight reduction Chart reviewed Will follow up Further recommendations after Stress test and Echo Plan and treatment discussed with Dr. Winston
[2018-04-30 06:06] LABS: CALCIUM 9.4 mg/dL (8.4-10.5)
--- NOTE | 2018-04-30 13:19 | PN ---
DATE: 04/30/2018 SUBJECTIVE: Patient denies any chest pain, shortness of breath or any palpitation. Going for a stress test today because of body habitus body weight, patient is on a 2-day schedule. He has a history of cardiac catheterization on 04/25/2017. Medical treatment is recommended. Moderate diffuse disease of LAD, severe distal RCA disease. Medical treatment is recommended. Further recommendations depend upon stress test today, n.p.o., follow with the stress test. Patient gets 2 days protocol. We will follow with you. This note is in addition to dictated by our nurse practitioner, Stefanie Curry. LDL is elevated. We will put Lipitor and atorvastatin. Emphasized weight reduction modification, lifestyle modification, risk factor for coronary artery disease suggested. Thank you Dr. El for providing us the opportunity in taking care of the patient. Cristo Chopra. Chace Winston MD
--- NOTE | 2018-04-30 14:20 | US ---
Date of service: 04/30/2018 PROCEDURE: Ultrasound of the Kidneys HISTORY: azotemia COMPARISON: None available. TECHNIQUE: Sonogram of the kidneys. FINDINGS: RIGHT KIDNEY: Measures: 11.1 x 6.1 x 5.7 cm. Normal in size and contour. The renal parenchyma is diffusely increased in echogenicity potentially reflecting intrinsic medical renal disease. No stone, solid mass lesion or hydronephrosis visualized. LEFT KIDNEY: Measures: 10.1 x 5.6 x 6.1 cm. The left kidney is normal in size. A simple cyst interrupted the peripheral contour at the midpole laterally, measuring 4.9 x 3.5 x 4.6 cm with no septation or nodularity seen related. The renal parenchyma is diffusely increased in echogenicity potentially reflecting intrinsic medical renal disease. There is no hydronephrosis visualized. There questionable parapelvic cysts or mild prominence of the pelvis. No caliceal dilatation. An echogenic focus is seen at the low lower pole left kidney with posterior shadowing felt to present represent residual calculus measuring 1.5 x 1.4 cm in this patient with partial staghorn calculus at the mid lower pole left kidney as recent as 10/19/2017 (seen in CT). OTHER FINDINGS: None. IMPRESSION: Echogenic renal parenchyma is appreciate bilaterally which may indicate intrinsic medical renal disease. Simple cyst midpole left kidney laterally, not simply changed in appearance. Residual calcifications from partial staghorn calculus now seen at the lower pole only. Mild prominence of left renal pelvis versus parapelvic cysts. No definitive obstructive uropathy bilaterally.
--- NOTE | 2018-04-30 14:21 | PN ---
DATE: 04/30/2018 SUBJECTIVE: This 52-year-old male was examined at his bedside on the afternoon of 04/30/2018. Present for this interview was his , Shantal Chopra, whose cell phone number is [phone]. I have discussed this case in detail with Dr. Winston from Cardiology earlier today, the patient is in the process of completing a 2-day myocardial stress thallium test due to body habitus and obesity. Also, the patient has undergone echocardiogram, the results of which are pending. Of note, the patient has accelerated hypertension and according to the , has been having mental status changes and reportedly had a silent stroke earlier this summer. OBJECTIVE: VITAL SIGNS: At present, the patient is lying in his bed in a normal sinus rhythm on the monitoring engineer with temperature of 98.2, respirations 18, pulse 72 and blood pressure 170/112. HEART: He has normal sinus rhythm on monitor. HEENT: Head: Normocephalic, atraumatic. Eyes: No icterus. Ears: Clear. Throat: Noninjected. NECK: Supple. HEART: Regular S1, S2. LUNGS: Clear. ABDOMEN: Obese. EXTREMITIES: No edema. SKIN: Without rash. NEUROLOGIC: Intact. PSYCHOLOGIC: Alert. VASCULAR: Legs warm to touch. LABORATORY DATA: White count 7200, hemoglobin 13.8, hematocrit 42.5, platelets 227,000. PT/INR 1.03, PTT 36.1. Sodium 141, K 4.7, chloride 107, bicarb 27, BUN 22, creatinine 2.4, random blood sugar 103. Cholesterol 216, triglycerides 211, LDL 134, HDL 27. Lipase normal 94. PSA normal 0.7. TSH normal 2.23. IMPRESSION: A 52-year-old male with obesity, accelerated hypertension, hyperlipidemia, stage III chronic renal insufficiency, altered mental status, rule out metabolic encephalopathy due to silent stroke. PLAN: At present, will be to complete a myocardial stress testing and check results of echocardiography as well as renal ultrasound that remain pending. The patient will continue on hydralazine 50 mg twice daily., Cozaar 50 mg p.o. daily, Ecotrin 81 mg p.o. daily, Lipitor 40 mg p.o. daily Lopressor 25 mg p.o. twice daily, Pepcid 20 mg p.o. at bedtime and clonidine 0.1 mg p.o. every 4 hours p.r.n. accelerated hypertension if systolic blood pressure is greater than 160 or diastolic blood pressure is greater than 100. He will continue on a heart-healthy renal diet. I have also requested an MRI of the brain as per his 's discussion and neurological evaluation with Dr. Chad Caballero to rule out metabolic encephalopathy due to silent stroke secondary to accelerated hypertension. Based on his clinical progress, additional diagnostic workup will be entertained. All the above was discussed with his , Shantal, present at the bedside. All questions were answered. These instructions were also reviewed with his nurse, Mallory Bird, registered nurse. Nicky El MD
--- NOTE | 2018-04-30 18:23 | CON ---
DATE: 04/30/2018 NEUROLOGY CONSULTATION CHIEF COMPLAINT: Evaluate for forgetfulness and AMS. HISTORY OF PRESENT ILLNESS: This is a 52-year-old man with history of obesity, accelerated hypertension, hyperlipidemia, stage III chronic renal insufficiency, who came in for confusion as well as chest pain, found to have had elevated systolic and diastolic blood pressures in terms of 170/112. Currently, the patient is sitting up in the chair, in no acute distress, following commands. He said that he is not confused and knows the date, month and year. Recall after 5 minutes is 1/3. Poor attention span. Slow thought process. He has had a CAT scan before in 03/2018, which showed old lacunar infarcts in the right caudate and in the right basal ganglia and one small in the left caudate. He has subtle left side weakness from prior lacunar infarcts in the right MCA territory, which is evident on neuro examination. Seen by Cardiology for severe right distal RCA stenosis and moderate left LAD disease. He is on aspirin 81 and Lipitor 40 for stroke prevention and still has accelerated hypertension, which is being controlled by metoprolol, losartan, and hydralazine. PAST MEDICAL HISTORY: As above. SOCIAL HISTORY: No illicit drug use, smoking, or EtOH abuse. ALLERGIES: NO KNOWN DRUG ALLERGIES. MEDICATIONS: Reviewed by nurse's reconciliation sheet. FAMILY HISTORY: Noncontributory. REVIEW OF SYSTEMS: A 14-point review of systems is as per HPI. LABORATORY DATA: Sodium is 141, potassium 4.7, chloride 107, carbon dioxide of 27, BUN of 22, creatinine 2.4. Random glucose 103. Triglyceride is 211, LDL of 134, cholesterol 216, HDL is low at 27. PHYSICAL EXAMINATION: VITAL SIGNS: Temperature afebrile, pulse rate of 72, blood pressure 160/108, respiratory rate 18, and oxygen saturation 98% on room air. GENERAL: The patient is sitting up in the bed, in no acute distress. HEENT: Atraumatic, normocephalic. PERRLA. Extraocular muscles intact. NECK: Supple. No JVD. No adenopathy noted. LUNGS: Clear to auscultation. No adventitious sounds. HEART: S1 and S2. Normal rate and rhythm. No murmurs, rubs, or gallops. ABDOMEN: Soft, nontender, nondistended. Bowel sounds present. He is obese. EXTREMITIES: No clubbing. No cyanosis. Peripheral pulses 2+ felt bilaterally. NEUROLOGIC: The patient is alert and oriented to person, place, month, and year. Recall after 5 minutes is 1/3. Poor attention span. Slow thought process. Cranial nerves II through XII are intact. Motor Exam: Moves all extremities equally. No pronator drift is seen. He has subtle left side finger tap slowing when compared to the right from prior CVA. Sensory: Light touch, pinprick, proprioception, and vibration are intact. DTRs are 2+ throughout, 1 in both knees and ankles. Coordination: [id number]-jfhj intact. No dysmetria noted. Gait is deferred for now. IMPRESSION: Transient altered mental status secondary to accelerated hypertension/hypertensive urgency. He has an old residual left side subtle weakness with finger tap slowing on the left from prior lacunar infarction in the right middle cerebral artery territory secondary to diffuse atherosclerotic disease and uncontrolled hypertension. RECOMMENDATIONS: At this time, I recommend; 1. Keep the systolic blood pressure between 130 to 140 and diastolic 70 to 80s and adjust his antihypertensive meds per Cardiology. 2. Evaluate for renal artery stenosis given that he has accelerated hypertension. 3. We will get an MRI of the brain to assess for any new-onset lacunar infarcts causing these symptoms. 4. Aspirin 81 and Lipitor 40 for stroke prevention and continue current present medical management. Thank you for this consult. Chad Caballero MD
[2018-05-01 06:16] VITALS: O2SAT 96
--- NOTE | 2018-05-01 07:08 | CP.PCM.PN ---
Subjective - Date & Time of Evaluation Date of Evaluation: 05/01/18 Time of Evaluation: 06:25 - Subjective Subjective: Awake, Lying in bed, denies chest pain, no distress, for second part of Stress test today Reason for consultation and follow up: Cardiac evaluation of chest pain, history of coronary artery disease post stents,hypertension, hyperlipidemia,obese Seen and examined by me and Dr. Winston Objective - Vital Signs/Intake and Output Vital Signs (last 24 hours): Temp Pulse Resp BP Pulse Ox 98.0 F 68 16 153/85 H 96 05/01/18 06:00 05/01/18 06:00 05/01/18 06:00 05/01/18 06:00 05/01/18 06:00 Intake and Output: 05/01/18 05/01/18 06:59 18:59 Intake Total 880 Output Total 1200 Balance -320 - Medications Medications: Current Medications Acetaminophen (Tylenol 325mg Tab) 650 mg PO Q6H PRN PRN Reason: Pain, Mild (1-3) OR TEMP Aspirin (Ecotrin) 81 mg PO DAILY [facility] Last Admin: 04/30/18 08:50 Dose: 81 mg Atorvastatin Calcium (Lipitor) 40 mg PO DIN [facility] Last Admin: 04/30/18 17:42 Dose: 40 mg Clonidine HCl (Catapres) 0.1 mg PO Q4H PRN PRN Reason: accelerated hypertension Famotidine (Pepcid) 20 mg PO HS [facility] Last Admin: 04/30/18 22:37 Dose: 20 mg Hydralazine HCl (Apresoline) 50 mg PO BID [facility] Last Admin: 04/30/18 17:33 Dose: 50 mg Losartan Potassium (Cozaar) 50 mg PO DAILY [facility] Last Admin: 04/30/18 08:50 Dose: 50 mg Metoprolol Tartrate (Lopressor) 25 mg PO BID [facility] Last Admin: 04/30/18 17:41 Dose: 25 mg Nitroglycerin (Nitro-Bid 2% Oint) 1 ea TOP Q4H PRN PRN Reason: accelerated hypertension Last Admin: 04/30/18 08:35 Dose: 1 ea Ondansetron HCl (Zofran Inj) 4 mg IVP Q6H PRN PRN Reason: Nausea/Vomiting - Labs Labs: 04/29/18 08:45 04/30/18 05:30 PT 11.9 SECONDS (9.4-12.5) 04/29/18 08:45 INR 1.03 04/29/18 08:45 APTT 36.1 Seconds (25.1-36.5) 04/29/18 08:45 - Constitutional Appears: Non-toxic, No Acute Distress - Head Exam Head Exam: NORMAL INSPECTION, NORMOCEPHALIC - Eye Exam Eye Exam: Normal appearance Pupil Exam: NORMAL ACCOMODATION - ENT Exam ENT Exam: Mucous Membranes Moist, Normal Exam - Respiratory Exam Respiratory Exam: Clear to Ausculation Bilateral, NORMAL BREATHING PATTERN - Cardiovascular Exam Cardiovascular Exam: REGULAR RHYTHM, +S1, +S2 Additional comments: Telemetry NSR 70's - GI/Abdominal Exam GI & Abdominal Exam: Soft, Normal Bowel Sounds - Extremities Exam Extremities Exam: Full ROM, Normal Capillary Refill - Neurological Exam Neurological Exam: Alert, Awake, Oriented x3 - Psychiatric Exam Psychiatric exam: Normal Affect, Normal Mood - Skin Skin Exam: Dry, Normal Color, Warm Assessment and Plan - Assessment and Plan (Free Text) Assessment: A 52 year old obese male who came in to the ER due to mid sternal chest pain. He woke up at 3 am with throbbing lower mid sternal chest pain and was continous for four hours. He also felt pain on the left arm. He had been experiencing chest pain off and on, but this time associated with shortness of breath. History of coronary artery disease with stents, hypertension,hyperlipidemia,and kidney stones.(hx of left lithotripsy). Troponin- 0.05 indeterminate, Last cardiac cath 04/25/17- mild to moderate diffuse disease of LAD Circumflex. Severe distal right coronary artery disease. Medical treatment/ therapy recommended. Atypical chest pain. 2 day protocol stress test,first part stress test done yesterday, going for the second day today. Echo done will follow up result. Plan: No distress, denies chest pain Echo done will follow up results For 2nd part of Stress test today Controlled blood pressure Controlled heart rate On ASA 81 mg daily,Cozaar 50 mg daily,Lopressor 25 mg BID Nitro-bid topical 1 inch daily, Hydralazine 50 mg BID Continue current medications Continue current treatment Life style modification Weight reduction Chart reviewed Will follow up Further recommendations after Stress test Plan and treatment discussed with Dr. Winston
--- NOTE | 2018-05-01 10:51 | PN ---
DATE: 05/01/2018 NEUROLOGY FOLLOWUP CHIEF COMPLAINT: Follow up for questionable forgetfulness. SUBJECTIVE: The patient is seen and examined at bedside. The patient reports no headache. Blood pressure is much better controlled today. Renal ultrasound was done which showed an echogenic renal parenchyma, which is appreciated bilaterally which may indicate intrinsic medical renal disease. PAST MEDICAL HISTORY: History of accelerated hypertension, obesity, hyperlipidemia, stage III chronic renal insufficiency. SOCIAL HISTORY: No illicit drug use, smoking, or EtOH abuse. ALLERGIES: NO KNOWN DRUG ALLERGIES. MEDICATIONS: Reviewed by nurse's reconciliation sheet. FAMILY HISTORY: Noncontributory. REVIEW OF SYSTEMS: A 14-point review of systems is as per HPI. LABORATORY DATA: Sodium 141, potassium 4.7, chloride 107, carbon dioxide of 27, BUN of 22, creatinine 2.4. Random glucose of 103. PHYSICAL EXAMINATION: VITAL SIGNS: Temperature 98.1, pulse rate of 82, blood pressure 133/66, respiratory rate 16, and oxygen saturation 95% on room air. GENERAL: The patient is sitting up in the edge of the bed in no acute distress. HEENT: Atraumatic, normocephalic. PERRLA. Extraocular muscles intact. NECK: Supple. No JVD. No adenopathy noted. LUNGS: Clear to auscultation. No adventitious sounds. HEART: S1, S2. Normal rate and rhythm. No murmurs, rubs or gallops. ABDOMEN: Soft, nontender and nondistended. Bowel sounds are present. EXTREMITIES: No clubbing. No cyanosis. Peripheral pulses 2+ felt bilaterally. NEUROLOGIC: The patient is alert and oriented to person, place, month and year. Speech is fluent without any errors. Cranial nerves II through XII intact. Recall after 5 minutes is 2/3. Poor attention span and slow thought process. Motor Exam: Moves all extremities equally except for a subtle left side finger tap slowing when compared to the right from prior CVA. Sensory: Light touch, pinprick, proprioception, and vibration are intact. DTRs are 2+ throughout, 1 in both knees and ankles. Coordination: Rmhwlg-di-kfcy intact. No dysmetria noted. Gait is deferred for now. IMPRESSION: Transient altered mental status secondary to accelerated hypertension/hypertensive urgency. He has an old residual left side subtle weakness with finger tap slowing on the left from prior lacunar infarction in the right middle cerebral artery territory secondary to diffuse atherosclerotic disease and uncontrolled hypertension. RECOMMENDATIONS: At this time, I recommend; 1. Keep the systolic blood pressure in 130s to 140s and diastolic 70 to 80s and adjust his antihypertensive meds as per Cardiology and Nephrology. 2. MRI of the brain is pending to assess for any new lacunar infarcts onset. 3. Aspirin 81 and Lipitor 40 mg for stroke prevention and continue current present medical management. Thank you for this followup. Chad Caballero MD
--- NOTE | 2018-05-01 11:27 | CARD ---
APPROVED REPORT Date of service: 04/30/2018 EXAM: Two-dimensional and M-mode echocardiogram with Doppler and color Doppler. INDICATION Hypertension/HCVD Chest Pain 2D DIMENSIONS Left Atrium (2D)4.2 (1.6-4.0cm)IVSd1.5 (0.7-1.1cm) LVDd5.2 (3.9-5.9cm)PWd1.5 (0.7-1.1cm) LVDs3.7 (2.5-4.0cm)FS (%) 28.6 % LVEF (%)54.6 (>50%) M-Mode DIMENSIONS Aortic Root3.50 (2.2-3.7cm)Aortic Cusp Exc.1.90 (1.5-2.0cm) Aortic Valve AoV Peak Uvfmykzl287.0cm/Earline Peak GR.11mmHg Mitral Valve MV E Dwknfqqg32.9cm/sMV A Hoqtaiqy330.0cm/sE/A ratio0.6 TDI Lateral E' Peak V6.14cm/sMedial E' Peak V5.17cm/sE/Lateral E'9.9 E/Medial E'11.8 Pulmonary Valve PV Peak Yvlmcafy436.0cm/sPV Peak Grad.5mmHg Tricuspid Valve TR Peak Pcefaznx099me/sRAP [id number] Peak Gr.11mmHg [id number] LEFT VENTRICLE The left ventricle is normal size. There is moderate concentric left ventricular hypertrophy. The left ventricular function is normal. The left ventricular ejection fraction is within the normal range. Ej.Fr: 50-55%. RIGHT VENTRICLE The right ventricle is normal size. The right ventricular systolic function is normal. ATRIA Minimal Left Atrial Enlargement. The interatrial septum is intact with no evidence for an atrial septal defect. AORTIC VALVE The aortic valve is normal in structure. MITRAL VALVE The mitral valve is normal in structure. TRICUSPID VALVE The tricuspid valve is normal in structure. There is trace tricuspid regurgitation. PERICARDIAL EFFUSION There is no pericardial effusion. <Conclusion> The left ventricle is normal size. There is moderate concentric left ventricular hypertrophy. The left ventricular function is normal. The left ventricular ejection fraction is within the normal range. Ej.Fr: 50-55%. The right ventricle is normal size. The right ventricular systolic function is normal. Minimal Left Atrial Enlargement. The aortic valve is normal in structure. The mitral valve is normal in structure. The tricuspid valve is normal in structure. There is trace tricuspid regurgitation. There is no pericardial effusion.
[2018-05-01 12:05] VITALS: RESP 20
--- NOTE | 2018-05-01 14:43 | CARD ---
APPROVED REPORT Date of service: 04/30/2018 Protocol: DAR Test Type: Sestamibi Stress Test Attending Physician: Dr. Chace Pride Referring Physician: Dr. Nicky El Test Indications: Chest Pain Height:5 ft 10 in Weight:318lbs Medications: tylenol, aspirin, pepcid cozaar, lopressor, nitro, zofran Medical History: 52 year old male with h/o htn, high cholesterol, kidney stones and chronic back pain Target HR: 166 bpm Resting Heart Rate: 88 bpm Resting Blood Pressure: 158/104mmHg Submaximum (85%): 141 bpm POST EXERCISE Target HR: No Max HR: 100 bpm 62% of Maximum Predicted HR: 166 bpm Exercise duration: 00:54 min:sec, 1 Stage Exercise capacity: 1.4METs Max Blood Pressure: 158/104mmHg Chest Pain: Yes, Angina index: 0 Arrhythmia: Yes, ST Change: Yes, Deviation: 0 mm TEST SUMMARY [id number]/.1. [id number]/104.1. EXERCISESTAGE 100:[id number]/.0. Signed by Chace Pride Electronically Approved: 05/01/2018 13:55:39 EXAM: Myocardial Perfusion STRESS/REST 2DAYS Stress Test Type: Exercise Treadmill Imaging Protocol The imaging protocol used to acquire images was Rest Tc-99m/stress Tc-99m 2 days Rest Spect myocardial perfusion imaging was performed in supine position 60 minutes following the injection of 30.2 mCi of Tc-99 Myoview. At peak stress, the patient was injected intravenously with 30.7mCi of Tc-99 tetrofosmin after an exercise time of 4 minutes and 36 seconds. Gated Stress Spect was performed 70 minutes after intravenous Tc-99 Myoview injection. The images were gated to evaluate regional wall motion and calculate ventricular ejection fraction.Images were reconstructed using backfilter projection method in short horizontal and verticle long axis. Spect slices were generated. LV Perfusion The quality of the study is good. The left ventricle is moderately enlarged in size with thickened myocardium. The right ventricle is unremarkable. The lung uptake is normal. The distribution of tracer reveals moderately and diffusely decreased perfusion in the inferior wall on the stress study. The remainder of the LV myocardium is unremarkable. The rest myocardial perfusion study shows no significant change. Wall Motion Wall motion study shows good contractility of the left ventricle. LVEF = 50%. Conclusion 1. Probably normal SPECT myocardial perfusion study. 2. Fixed, inferior defect is most likely due to diaphrgmatic attenuation. 3. Normal gated wall motion and thicknening of the left ventricle. LVH.
--- NOTE | 2018-05-01 14:44 | PN ---
DATE: 05/01/2018 REASON FOR THE CONSULTATION: Cardiac evaluation, history of coronary artery disease, status post cardiac catheterization, admitted with recurrent chest pains, multiple admissions to the ER. This note is an addition to dictated by nurse practitioner. The patient is scheduled for a stress test. The patient had a two days' protocol, yesterday went for first day and today is going for day two protocol for stress test. PHYSICAL EXAMINATION: VITAL SIGNS: Blood pressure is relatively stable 153/85. RECOMMENDATIONS: Followup with the stress test. The patient had chronic kidney disease, creatinine clearance is 28 mL. Continue hydralazine 50 b.i.d. and continue p.r.n., continue losartan. The patient had renal ultrasound done yesterday, that shows normal size and contour. The renal parenchyma has diffusely increased in echogenicity, consistent with renal intrinsic medical disease bilateral. I discussed with Dr. El yesterday; however, the patient needs cardiac catheterization. We will also do the renal angiogram to rule out any renal artery stenosis, but renal ultrasound consistent with intrinsic renal disease. Further recommendation after the stress test. We will review the echo when it is done. We will follow with you. In the interim, continue atorvastatin, continue baby aspirin, continue losartan, continue hydralazine. This note is an addition to dictated by nurse practitioner, Stefanie Curry. Thank you Dr. El for providing us the opportunity in taking care of the patient, Nav Lemons. Chace Winston MD
--- NOTE | 2018-05-01 18:11 | PN ---
DATE: 05/01/2018 SUBJECTIVE: This 52-year-old male remains hospitalized on the cardiac treadwell at the [facility] on the morning of 05/01/2018. He is undergoing a two-day protocol stress test. Second day of testing today due to unstable angina and 2D echocardiogram remains pending at present. The patient was admitted with accelerated hypertension and a renal ultrasound was reviewed this morning. It reveals echogenic renal parenchyma bilaterally suggestive of intrinsic medical renal disease with a simple cyst in the mid pole of his left kidney laterally, unchanged in appearance from previously and also with residual calcifications from a partial staghorn calculus seen in the lower pole of his left kidney as well. There was no evidence of obstructive uropathy and there were no renal masses. The patient denied any active chest pain or shortness of breath. PHYSICAL EXAMINATION GENERAL: He is in a sinus rhythm with temperature 98, respirations 16, pulse 75, and blood pressure 161/95 with pulse ox 96%. HEENT: Head; normocephalic, atraumatic. Eyes, no icterus. Ears, clear. Throat, noninjected. NECK: Supple. HEART: Regular, S1, S2. LUNGS: Clear. ABDOMEN: Obese. EXTREMITIES: No edema. SKIN: Without rash. NEUROLOGICAL: Intact. PSYCHOLOGICAL: Alert. VASCULAR: Legs warm to touch. LABORATORY DATA: White count 7200, hemoglobin 13.8, hematocrit 42.5, platelets 227,000. PT/INR 1.03, PTT 36.1. Sodium 141, K 4.7, chloride 107, bicarb 27, BUN 22, creatinine 2.4, random blood sugar 103. Cholesterol 216, triglycerides 211, LDL 134, HDL 27. IMPRESSION: This is a morbidly obese 52-year-old male with unstable angina, chronic renal failure stage III, hyperlipidemia, accelerated hypertension, history of peptic ulcer disease with gastroesophageal reflux disease, and history of mental status changes according to his , status post a reported stroke earlier this year. PLAN: At present is to complete the myocardial stress testing and adjust antihypertensives to achieve blood pressure control. The patient will continue on hydralazine, clonidine as needed for accelerated hypertension, Cozaar, Ecotrin, Lipitor, Lopressor, nitroglycerin, Pepcid, Tylenol and as-needed Zofran. He is scheduled for an MRI of the brain, no contrast, and is awaiting a consultation with Dr. Chad Caballero from Neurology. He continues on heart-healthy renal diet and additional diagnostic workup and testing will be entertained based on clinical progress. Greater than 35 minutes were spent in the care management, review of labs, orders and x-rays, and discussion of this patient with himself, his , Shantal and nursing. All questions were answered. Nicky El MD MTDD
[2018-05-01 18:15] VITALS: BP 147/84; PULSE 67; TEMP 98.3
--- NOTE | 2018-05-02 19:53 | DS ---
The patient left A [facility] 05/01/2018. HISTORY OF PRESENT ILLNESS: This 52-year-old male admitted to the [facility] with accelerated hypertension and chest pain, left the [facility] AMA under the direction of his , Shantal Chopra. The patient was in the process of completing stress testing and awaiting echocardiography results and having blood pressure medication adjusted. The patient's was adamant on leaving the hospital prior to the resulting of these testings. At the time of this dictation on the evening of , 05/02/2018, stress testing was reviewed and showed normal wall motion with normal gated wall motion and thickening of his left ventricle consistent with LVH, but probably normal SPECT myocardial perfusion study with fixed inferior defect most likely due to diaphragmatic attenuation. I did review the patient's echocardiogram, it showed normal left ventricle size with left concentric ventricular hypertrophy and ejection fraction of approximately 50-55% with minimal left atrial enlargement. No pericardial effusion and a renal ultrasound was reviewed that showed echogenic renal parenchyma bilaterally consistent with intrinsic medical renal disease, a simple cyst in the mid pole of the left kidney unchanged from previous appearance and a partial staghorn calculus in the lower pole of his left kidney as well. At the time of his leaving the hospital against medical advice, his temperature was 98.3, respirations 20, pulse 67, and blood pressure 147/84. The patient was in the presence of his and was advised against leaving the hospital AMA by nurse, Maryann Lloyd, registered nurse. Nicky El MD
== END 2018-05-01 19:47 | disposition left against medical advice (07) | DRG 303 ==
LOC: ED 08:33 → ERH 11:40 → 2RNO 12:46
PROVIDERS: ADMIT Internal Medicine; ATTEND Internal Medicine
DX: I25.110 Atherosclerotic heart disease of native coronary artery with unstable angina pectoris (principal); Z68.42 Body mass index [BMI] 45.0-49.9, adult; I16.0 Hypertensive urgency; I12.9 Hypertensive chronic kidney disease with stage 1 through stage 4 chronic kidney disease, or unspecified chronic kidney disease; N18.3 Chronic kidney disease, stage 3 (moderate); E66.01 Morbid (severe) obesity due to excess calories; E78.5 Hyperlipidemia, unspecified; K21.9 Gastro-esophageal reflux disease without esophagitis; N20.0 Calculus of kidney; Z86.73 Personal history of transient ischemic attack (TIA), and cerebral infarction without residual deficits; Z87.11 Personal history of peptic ulcer disease; Z95.5 Presence of coronary angioplasty implant and graft